=== PATIENT | male | born 1945 | race Caucasian/White ===

== ENCOUNTER 2017-06-20 18:52 | Inpatient (IN) | payer MEDICARE, SELFPAY ==
[2017-06-20] VITALS (7 sets, daily range): BP systolic 122–129; BP diastolic 68–78; PULSE 70–95; RESP 12–22; TEMP 36.4–36.6; O2SAT 95–98; BMI 42.9; BMI 40.3
--- NOTE | 2017-06-20 19:05 | CT_ITS ---
STUDY: CT BRAIN WITHOUT CONTRAST REASON FOR EXAM: Male, 71 years old. Seizure. RADIATION DOSAGE (If Supplied By Facility): CTDIvol = ( 44.99 ) mGy, DLP = ( 779.24 ) mGycm TECHNIQUE: Transaxial CT imaging of the brain was performed without administration of intravenous contrast material. Individualized dose optimization techniques were used for this CT. COMPARISON: None. FINDINGS: Normal soft tissue structures. Normal calvarium. No definite acute abnormality. No acute hemorrhage. Marked encephalomalacia of most of the right frontal and temporal lobes related to previous infarct. Ex vacuo enlargement of the right lateral ventricle. No midline shift. Mild atrophy and White matter disease. CT/Brain/Head without Contrast IMPRESSION: No definite acute abnormality. Large previous right cerebral infarct. Electronically Signed: Isaac Walden MD at 19:54 EDT , Service support ,
--- NOTE | 2017-06-20 19:05 | EKG12_ITS ---
Test Reason : SEIZURE Blood Pressure : / mmHG Vent. Rate : 087 BPM Atrial Rate : 087 BPM P-R Int : 190 ms QRS Dur : 086 ms QT Int : 356 ms P-R-T Axes : 051 023 070 degrees QTc Int : 428 ms Normal sinus rhythm Normal ECG Confirmed by IRMA SUERO, ELLA ([id number]), film or videotape editor JAIMIE ALEXANDER ([id number]) on 06/22/2017 3:05:00 PM Referred By: HENRI Confirmed By:ELLA SOLIS MD
--- NOTE | 2017-06-20 19:08 | RAD_ITS ---
STUDY: X-RAY CHEST REASON FOR EXAM: Male, 71 years old. Seizure TECHNIQUE: Single AP portable view of the chest. COMPARISON: 05/09/2016. FINDINGS: Low lung volumes. Atelectasis or infiltrates in both lung bases. No gross effusions. Normal size heart. Normal mediastinum and barbara. Normal visualized pulmonary arteries. Normal visualized aortic arch and descending thoracic aorta. Normal visualized thoracic spine. There is degenerative osteoarthritis of the bilateral shoulders. There is no demonstrated abnormality of the visualized soft tissue structures of the upper abdomen. RAD/Chest 1 View (Portable) IMPRESSION: Low lung volumes with atelectasis or infiltrates in the lung bases. Electronically Signed: Isaac Walden MD at 19:27 EDT , Service support ,
--- NOTE | 2017-06-20 19:12 | ED.VISSUMM ---
- ER Visit Summary Date of Service: 06/20/17 Chief Complaint: Seizure History of Present Illness: The patient is a 71 M with history of prior stroke just over a year ago presents after seizure. Patient had a large ischemic stroke affecting the left side of his body. He does follow with Dr. Kinney. He has contracture of his left arm, and diminished use of his left leg, and some slurred speech at baseline. 2 weeks ago, he was started on amitriptyline for increased oral secretions. He states he has been in his normal state of health. There is been no other change in medication. Tonight, after he ate, the patient was sitting in his chair. The states that she heard a noise and looked over. He was having rhythmic genic shaking that lasted approximately 30 seconds to a minute. Afterwards he was postictal. It took him about 10 minutes to return to baseline. He did not strike his head. He denies any trauma. He denies any headache, visual change, or other acute symptoms. He states he feels back to baseline. Physical Examination: Vital signs reviewed General: Well-nourished, well-developed Head: Normocephalic, atraumatic Eyes: Pupils equal and reactive, extraocular muscles intact Neck, supple, no lymphadenopathy Heart: Regular rate and rhythm Respiratory: No distress, clear bilaterally Abdomen: Soft, nontender, nondistended, no peritoneal signs Back: Nontender Extremities: Nontender, no edema, no cords Skin: Normal color no rash Neuro: Alert and oriented, weakness of left arm, left leg, mild left-sided facial droop-all chronic Test Results: [] Emergency Department Course and Treatment: The patient was back to baseline on arrival. He had no further seizure activity. I did obtain a head CT which is unchanged. Chest x-ray shows atelectasis versus infiltrate. The patient has had no cough. He said no shortness of breath. I do feel based on his habitus and presentation this is likely atelectasis. Labs are unremarkable. I did discuss the patient with Dr. Sheree Thomason. He agreed with plan for IV Keppra. The patient will be admitted for MRI and EEG tomorrow. Family is comfortable with plan of care. Patient was discussed with the hospitalist. Treatment Plan: [] Disposition: Admission Impression: 1. New onset seizure This note was generated with Dragon dictation software. It may contain incorrect words, spelling, and punctuation that were not noted in review of the chart prior to signing ED Disposition - Plan for ED Patient: Chief Complaint: Seizure Referrals: Eliud Belcher MD [Primary Care Provider] -
[2017-06-20 19:46] LABS: Absolute Lymphocyte Count 1.26 X10^3/ul (0.83-4.51); Absolute Neutrophil Count 5.3 X10^3/uL (2.0-7.7); Basophil# 0.01 X10^3/uL; Basophil% 0.1 % (0-1); Eosinophil# 0.12 X10^3/uL; Eosinophils% 1.7 % (0-5); Hematocrit 41.2 % (40-54); Hemoglobin 13.9 g/dl (13.0-16.5); Lymphocyte # 1.26 X10^3/ul (4.0); Lymphocyte % 17.8 % (19-41); Mean Corp Hgb Conc 33.7 g/gl (32-36); Mean Corpuscular Hgb 29.8 pg (27.0-32.0); Mean Corpuscular Volume 88.4 fL (80-94); Mean Platelet Vol. 9.9 fl (6.2-12.0); Monocyte% 5.6 % (0-10); Neutrophil # 5.27 X10^3/uL (2.7-7.7); Neutrophil % 74.5 % (47-70); Platelet Count 189 K/mm3 (150-450); RBC Distribution Width CV 14.4 % (11.6-14.6); RBC Distribution Width SD 46.6 fl (35.1-43.9); Red Blood Count 4.66 M/mm3 (4.6-6.2); White Blood Count 7.1 K/mm3 (4.4-11.0)
[2017-06-20 19:52] LABS: POSITIVE COUNT NO; POSITIVE DIFFERENTIAL NO; POSITIVE MORPHOLOGY NO
[2017-06-20 19:59] LABS: ALB/GLOB Ratio 0.9 RATIO (0.9-2.4); AST(SGOT) 9 U/L (15-37); Alanine Aminotransfer ALT/SGPT 19 U/L (16-61); Albumin, Serum 3.3 g/dL (3.2-5.0); Alkaline Phosphatase 54 U/L (45-117); Anion Gap 7 (5-15); BUN 22 mg/dL (7-18); BUN/Creat Ratio 17.6 RATIO (10-20); Calcium,Total 8.4 mg/dL (8.5-10.1); Chloride 106 mmol/L (98-107); Creatinine, Serum 1.25 mg/dL (0.70-1.30); EST Glomerular Filtration Rate 60 mL/min (>60); Est Glom Filt Rate - Afr Amer 73 mL/min (>60); Estimated Creatinine Clearance 45.78 ml/min; Globulin 3.5 g/dL (2.2-4.2); Glucose 135 mg/dL (74-106); Potassium 4.2 mmol/L (3.5-5.1); Protein, Total 6.8 g/dL (6.4-8.2); Sodium Level 143 mmol/L (136-145)
--- NOTE | 2017-06-20 20:20 | NURSING ---
[facility] CALLED BACK NEUROLOGY
[2017-06-20 20:26] LABS: Bacteria 0 SEEN /hpf (None Seen); Mucous, Urine 0 SEEN /hpf (<or=2+); Red Blood Cells-Urine 0 SEEN /hpf (0-5); Squamous Epithelial Cells - UA 0 SEEN /hpf (0-5)
[2017-06-20 20:28] LABS: Color, Urine Yellow (Yellow); Glucose, Dipstick Normal (Normal); Ketone-Dipstick Negative (Negative); Leukocyte Esterase-Dipstick Negative /ul (Negative); Nitrite-Dipstick Negative (Negative); Occult Blood-Urine Negative /ul (Negative); Protein-Dipstick Negative (Negative); Urine Bilirubin Dipstick Negative (Negative); Urine Clarity Clear (Clear); Urine Urobilinogen Normal (Normal); Urine pH 6.5 (5.0 - 8.0)
[2017-06-20] MEDS: levETIRAcetam IV 1,000 MG/100 ML BAG 400 MG IV (20:46)
[2017-06-20 20:57] LABS: White Blood Cells 0-5 SEEN /hpf (0-5)
[2017-06-20 21:00] LABS: Amphetamine Urine VISTA NEGATIVE (<1000 ng/mL); Barbiturate Urine VISTA NEGATIVE (< 200 ng/mL); Benzodiazepine Urine VISTA NEGATIVE (< 200 ng/mL); Cocaine Urine VISTA NEGATIVE (< 300 ng/mL); Ecstacy Urine VISTA NEGATIVE (< 500 ng/mL); Methadone Urine VISTA NEGATIVE (< 300 ng/mL); PCP Urine VISTA NEGATIVE (< 25 ng/mL); THC Urine VISTA NEGATIVE (< 50 ng/mL); Vista UDS pH Range 6
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
--- NOTE | 2017-06-20 21:42 | ECHOD_ITS ---
Reason For Study: TIA/CVA Procedure This was a 2D Doppler, Color Flow transthoracic echocardiogram. Exam performed portable in patient room. Left Ventricle Normal LV size. Left ventricular systolic function is normal. The estimated ejection fraction is 65 %. No regional wall motion abnormalities noted. Right Ventricle Normal RV size. Normal systolic function. Atria Normal left atrium. Normal right atrium. Mitral Valve Normal mitral valve. Tricuspid Valve Normal tricuspid valve. Aortic Valve The aortic valve is not well visualized. Pulmonic Valve The pulmonic valve is not well visualized. Great Vessels Normal aortic root. The pulmonary artery is normal size. Normal inferior vena cava. Pericardium/Pleural No pericardial effusion. Medication Performed a rapid injection of agitated mix of 9 cc saline and 1cc air to assess for atrial septal defect. Diluted definity 5ml given slow IV push to enhance endocardial definition. MMode/2D Measurements & Calculations LVIDd: 3.9 cm IVSd: 1.1 cm Ao root diam: 3.5 cm LVIDs: 2.5 cm LVPWd: 1.1 cm LA dimension: 3.9 cm FS: 36.2 % Doppler Measurements & Calculations MV E max jeannine: 66.5 cm/sec Ao V2 max: 144.2 cm/sec LV V1 max: 114.3 cm/sec MV A max jeannine: 80.8 cm/sec Ao max P.3 mmHg LV V1 max P.2 mmHg MV E/A: 0.82 PA V2 max: 108.6 cm/sec Interpretation Summary Normal LV size. Left ventricular systolic function is normal. The estimated ejection fraction is 65 %. Contrast injection was performed. Ordering Physician: Janine Chou Referring Physician: MD Simi Eliud Performed By: Gaby Shin RDCS
[2017-06-20 22:27] LABS: Thyroid Stim Hormone (TSH) 2.79 uIU/mL (0.358-3.74)
[2017-06-20 22:57] LABS: Hemoglobin A1c 5.2 % (4.2-6.3)
[2017-06-20] MEDS: 0.9% Normal Saline 1,000 ML 100 ML IV (23:18)
[2017-06-20] MEDS: APIXABAN 5 MG TABLET PO (23:33)
[2017-06-20] MEDS: Baclofen 10 MG Tablet PO (23:33)
[2017-06-20] MEDS: Tamsulosin HCl 0.4 MG Capsule PO (23:33)
[2017-06-20] MEDS: Atorvastatin Calcium 80 MG Tablet PO (23:34)
[2017-06-20] MEDS: Famotidine 20 MG Tablet PO (23:34)
[2017-06-21] VITALS (16 sets, daily range): BP systolic 112–153; BP diastolic 69–87; PULSE 59–86; RESP 12–19; TEMP 36.6–37; O2SAT 93–98
[2017-06-21 02:55] LABS: Cholesterol 76 mg/dL (200); High Density Lipoprotein 32 mg/dL; Triglycerides 50 mg/dL; Very Low Density Lipoprotein 10 mg/dL (5-40)
[2017-06-21] MEDS: Baclofen 10 MG Tablet PO ×3 (05:11→21:48)
[2017-06-21] MEDS: 0.9% Normal Saline 1,000 ML 100 ML IV ×2 (05:12→18:33)
--- NOTE | 2017-06-21 07:52 | MRI_ITS ---
STUDY: MRI BRAIN WITHOUT CONTRAST REASON FOR EXAM: Male, 71 years old. cva, new seizure; hx prior cva with resid lt side weakness. TECHNIQUE: Standardized multiplanar fat and water weighted pulse sequences were obtained. COMPARISON: CT of the head dated June 20, 2017 FINDINGS: Again noted is the large right temporofrontal encephalomalacia and gliosis with mild ex vacuo dilatation of the lateral ventricle. There is atrophy of the right cerebral peduncle. There is no extra-axial fluid accumulation. Normal flow voids within the major intracranial circulation suggesting patency by spin echo criteria. Normal sella turcica, pituitary gland, infundibular stalk, optic chiasm and hypothalamus. Normal tectal plate and pineal gland. Normal cerebellum. Normal basal cisterns. Normal bilateral temporal bones. Normal bilateral internal auditory canals. There is moderate paranasal sinus disease. MRI/Brain without Contrast IMPRESSION: No acute intracranial abnormality. Large right MCA infarction. Electronically Signed: Dale Martin MD at 10:01 EDT Tel , Service support ,
--- NOTE | 2017-06-21 07:53 | MRI_ITS ---
STUDY: MRA OF THE HEAD WITHOUT CONTRAST REASON FOR EXAM: Male, 71 years old. cva,new seizure; hx prior cva with resid lt side weakness. TECHNIQUE: 3-D dset-sc-yuewia (TOF) imaging was performed with MIPs. The study was performed unenhanced. COMPARISON: None. FINDINGS: There is occlusion of the right internal carotid artery to the level of the terminus. There is nonvisualization of the right A1 and A2 segments of the anterior cerebral artery. Normal left A2 segments of the anterior cerebral arteries. There is nonvisualization of the right M1 and M2 segments of the middle cerebral arteries, with a normal M1 bifurcation. Normal left M1 and M2 segments of the middle cerebral arteries, with a normal M1 bifurcation. There is non-visualization of the right posterior communicating artery (PCOM). Normal left posterior communicating artery (PCOM). Normal bilateral vertebral arteries. Normal basilar artery with a normal basilar bifurcation. The visualized bilateral superior cerebellar (SCA) arteries are normal. Normal bilateral P1, P2 and visualized P3 segments of the posterior cerebral arteries. There is no demonstrated aneurysm of the [place] of [place]. There is no major vessel occlusion or hemodynamically significant stenosis. There is no demonstrated abnormality of the visualized brain. 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 Electronically Signed: Dale Martin MD at 10:05 EDT Tel , Service support ,
--- NOTE | 2017-06-21 07:53 | MRI_ITS ---
STUDY: MRA NECK WITHOUT CONTRAST REASON FOR EXAM: Male, 71 years old. cva,new seizure; hx prior cva with resid lt side weakness. TECHNIQUE: Source images were obtained, MIPs were performed. The study was performed unenhanced. COMPARISON: None. FINDINGS: RIGHT CAROTID ARTERIES: Normal right common carotid artery (CCA). There is complete occlusion of the origin of the right internal carotid artery without demonstrated arterial flow. LEFT CAROTID ARTERIES: Normal left common carotid artery (CCA). There is complete occlusion of the origin of the left internal carotid artery without demonstrated arterial flow. Normal origin of the left external carotid artery (ECA). VERTEBRAL ARTERIES: There is antegrade flow within the bilateral vertebral arteries with a small left vertebral artery, and a dominant right vertebral artery. MRI/MRA Neck without Contrast IMPRESSION: Occlusion of the bilateral ICAs. Further evaluation with CTA can be obtained. Electronically Signed: Dale Martin MD at 10:15 EDT Tel , Service support ,
[2017-06-21] MEDS: Calcium Carb/Vitamin D 1 TABLET Tablet PO ×2 (09:52→17:19)
[2017-06-21] MEDS: Aspirin 81 MG TAB.CHEW PO (09:52)
[2017-06-21] MEDS: levETIRAcetam 750 MG Tablet PO ×2 (09:52→21:46)
[2017-06-21] MEDS: Lisinopril 10 MG Tablet PO (09:52)
[2017-06-21] MEDS: Famotidine 20 MG Tablet PO ×2 (09:52→21:46)
[2017-06-21] MEDS: APIXABAN 5 MG TABLET PO ×2 (09:52→21:46)
[2017-06-21 10:20] LABS: Anion Gap 8 (5-15); BUN 19 mg/dL (7-18); BUN/Creat Ratio 19.3 RATIO (10-20); Calcium,Total 7.5 mg/dL (8.5-10.1); Chloride 111 mmol/L (98-107); Creatinine, Serum 0.98 mg/dL (0.70-1.30); EST Glomerular Filtration Rate 79 mL/min (>60); Est Glom Filt Rate - Afr Amer 96 mL/min (>60); Glucose 102 mg/dL (74-106); Potassium 4.1 mmol/L (3.5-5.1); Sodium Level 143 mmol/L (136-145)
--- NOTE | 2017-06-21 13:49 | CT_ITS ---
STUDY: CTA OF THE BRAIN REASON FOR EXAM: Male, 71 years old. CVA FOLLOW UP TO MRI'S FROM TODAY RADIATION DOSAGE (If Supplied By Facility): CTDIvol = ( 30.08 ) mGy, DLP = ( 1545.59 ) mGycm TECHNIQUE: CT angiography was performed with a multi-detector CT scanner. Data acquisition was obtained from the skull base through the vertex following intravenous administration of 100 ml of [id number]-370. MIP images were reconstructed from the axial data set. Post-processing of the angiographic images was performed, with multiplanar reformation and 3D reconstruction. Individualized dose optimization techniques were used for this CT. COMPARISON: MRA Brain Jun 21 2017 8:35am and CT Brain Jun 20 2017 7:26pm FINDINGS: Normal bilateral petrous carotid arteries. There is calcified plaque formation of the right cavernous carotid artery, without a cross-sectional luminal stenosis. There is calcified plaque formation of the left cavernous carotid artery, without a cross-sectional luminal stenosis. There is chronic appearing occlusion of the right and left ICA. There is either a branch of the proximal right and left ICA vs recanalization of the original vessel as it enters into the skull base. This extends to the cavernous carotid arteries. Normal right A1 segments of the anterior cerebral artery. Normal left A1 segments of the anterior cerebral artery. Normal intact anterior communicating artery (ACOM). There is a narrow right A2 segment. Normal right M1 segments of the middle cerebral arteries, with a normal M1 bifurcation. Normal left M1 and M2 segments of the middle cerebral arteries, with a normal M1 bifurcation. Occlusion of the right M2 segment. This is chronic. Normal right posterior communicating artery (PCOM). Normal left posterior communicating artery (PCOM). Normal bilateral vertebral arteries. Normal basilar artery with a normal basilar bifurcation. The visualized bilateral superior cerebellar (SCA) arteries are normal. Normal bilateral P1, P2 and visualized P3 segments of the posterior cerebral arteries. There is no demonstrated aneurysm of the [place] of [place]. There is mild maxillary sinus disease. There is mild ethmoid sinus disease. Old right MCA infarct. Encephalomalacia of the right MCA distribution. 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 Diffuse chronic appearing narrowing of the right A2 segment. There is chronic appearing occlusion of the right and left ICA. There is either a branch of the proximal right and left ICA vs recanalization of the original vessel. This extends to the cavernous carotid arteries. Electronically Signed: Amilcar Calle MD at 15:59 EDT , Service support ,
--- NOTE | 2017-06-21 13:49 | CT_ITS ---
STUDY: CTA OF THE BRAIN REASON FOR EXAM: Male, 71 years old. CVA FOLLOW UP TO MRI'S FROM TODAY RADIATION DOSAGE (If Supplied By Facility): CTDIvol = ( 30.08 ) mGy, DLP = ( 1545.59 ) mGycm TECHNIQUE: CT angiography was performed with a multi-detector CT scanner. Data acquisition was obtained from the skull base through the vertex following intravenous administration of 100 ml of Isovue-370. MIP images were reconstructed from the axial data set. Post-processing of the angiographic images was performed, with multiplanar reformation and 3D reconstruction. Individualized dose optimization techniques were used for this CT. COMPARISON: MRA Brain Jun 21 2017 8:35am and CT Brain Jun 20 2017 7:26pm FINDINGS: Normal bilateral petrous carotid arteries. There is calcified plaque formation of the right cavernous carotid artery, without a cross-sectional luminal stenosis. There is calcified plaque formation of the left cavernous carotid artery, without a cross-sectional luminal stenosis. There is chronic appearing occlusion of the right and left ICA. There is either a branch of the proximal right and left ICA vs recanalization of the original vessel as it enters into the skull base. This extends to the cavernous carotid arteries. Normal right A1 segments of the anterior cerebral artery. Normal left A1 segments of the anterior cerebral artery. Normal intact anterior communicating artery (ACOM). There is a narrow right A2 segment. Normal right M1 segments of the middle cerebral arteries, with a normal M1 bifurcation. Normal left M1 and M2 segments of the middle cerebral arteries, with a normal M1 bifurcation. Occlusion of the right M2 segment. This is chronic. Normal right posterior communicating artery (PCOM). Normal left posterior communicating artery (PCOM). Normal bilateral vertebral arteries. Normal basilar artery with a normal basilar bifurcation. The visualized bilateral superior cerebellar (SCA) arteries are normal. Normal bilateral P1, P2 and visualized P3 segments of the posterior cerebral arteries. There is no demonstrated aneurysm of the [place]. There is mild maxillary sinus disease. There is mild ethmoid sinus disease. Old right MCA infarct. Encephalomalacia of the right MCA distribution. CT/CTA Neck W/WO Contrast IMPRESSION: Occlusion of the right M2 segment. This is chronic. Diffuse chronic appearing narrowing of the right A2 segment. There is chronic appearing occlusion of the right and left ICA. There is either a branch of the proximal right and left ICA vs recanalization of the original vessel. This extends to the cavernous carotid arteries. Electronically Signed: Amilcar Calle MD at 15:59 EDT , Service support ,
--- NOTE | 2017-06-21 13:56 | PCM.PROGNOTE ---
Patient Problems: Active and Suspected Problems Seizure (Acute) Elevated serum creatinine (Acute) Hyperglycemia (Acute) Subjective: Pt resting comfortably in bed NAD. He does have a tremor in his left hand and leg but he states this is chronic from his prior stroke. Same for severe weakness in his left arm and leg. He also has drooling left side of mouth. No headache, dizziness, diplopia, blurred vision, SOB, CP. - Physical Exam General: Alert, Oriented x3, Cooperative, - HEENT: Atraumatic, PERRLA, EOMI, Normocephalic, - - drooling left side of mouth. Neck: Supple, No JVD, Negative Carotid Bruits Lungs: Clear to auscultation, Normal air movement Cardiovascular: Regular rate, No murmurs Abdomen: Bowel Sounds Present, Soft, Non Tender Extremities: No edema, Capillary Refill Less than 3 Seconds Skin: No rashes, No breakdown Musculoskeletal: No Tenderness to Palpation of Joints or Extremities Neurological: Cranial nerves II-XII grossly intact, - - severe left arm, hand, leg, foot weakness. Psych/Mental Status: Normal Affect, Appropriate Vital Signs Temp Pulse Resp BP Pulse Ox 97.8 F 68 16 121/70 H 97 06/21/17 09:45 06/21/17 11:01 06/21/17 09:45 06/21/17 09:45 06/21/17 09:45 Oxygen Delivery Method Room Air Weight: 109.9 kg Body Mass Index (BMI) 40.3 Intake and Output for Last 24 Hours 06/19/17 06/20/17 06/21/17 23:59 23:59 23:59 Intake Total 591 / 591 1173 / 1173 Output Total 175 / 175 725 / 725 Balance 416 / 416 448 / 448 Laboratory Tests Past 24 Hrs 06/20/17 06/20/17 06/21/17 22:07 22:07 01:56 Sodium Potassium Chloride Carbon Dioxide Anion Gap BUN Creatinine Estim Creat Clear Calc Est GFR (MDRD) Af Amer Est GFR (MDRD) Non-Af BUN/Creatinine Ratio Glucose Hemoglobin A1c 5.2 Calcium Troponin I < 0.02 Triglycerides 50 Cholesterol 76 LDL Cholesterol 34 VLDL Cholesterol 10 HDL Cholesterol 32 L 06/21/17 06/21/17 06/21/17 01:56 05:18 05:18 Sodium 143 Potassium 4.1 Chloride 111 H Carbon Dioxide 24.0 Anion Gap 8 BUN 19 H Creatinine 0.98 Estim Creat Clear Calc 58.40 Est GFR (MDRD) Af Amer 96 Est GFR (MDRD) Non-Af 79 BUN/Creatinine Ratio 19.3 Glucose 102 Hemoglobin A1c Calcium 7.5 L Troponin I < 0.02 < 0.02 Triglycerides Cholesterol LDL Cholesterol VLDL Cholesterol HDL Cholesterol 06/21/17 11:50 Sodium Potassium Chloride Carbon Dioxide Anion Gap BUN Creatinine Estim Creat Clear Calc Est GFR (MDRD) Af Amer Est GFR (MDRD) Non-Af BUN/Creatinine Ratio Glucose Hemoglobin A1c Calcium Troponin I < 0.02 Triglycerides Cholesterol LDL Cholesterol VLDL Cholesterol HDL Cholesterol Medical Necessity - Tobacco Use Smoking Status: Former smoker Tobacco Use: Non-smoker - quit in 2006 and prior to that had a 20 Pack yr hx Assessment/Plan Active and Suspected Problems Seizure (Acute) Elevated serum creatinine (Acute) Hyperglycemia (Acute) 1. New onset tonic clonic seizure - on keppra now. No further seizure activity. Neuro consult. Severe vascular changes noted on MRA, will obtain CTA head and neck per neuro rec. Echo and EEG pending. CT brain shows large previous right cerebral infarct. TSH normal. UA neg. 2. Prior CVA - left sided deficits. PTOT, ST. On eliquis, asa, statin. 3. Morbid obesity - dietary consult. Pal controlled diet. A1C 5.2. 4. HLD - LDL 34 5. Hx DVT RLE - eliquis. 6. HTN - stable DVT ppx: eliquis DC planning: PTOT This patient was seen by Reynold Browne PA-C under the supervision of Doctor Giorgio.
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
[2017-06-21] MEDS: Tamsulosin HCl 0.4 MG Capsule PO (21:46)
[2017-06-21] MEDS: Atorvastatin Calcium 80 MG Tablet PO (21:48)
[2017-06-22] VITALS (7 sets, daily range): BP systolic 114–127; BP diastolic 72–79; PULSE 61–71; RESP 12–16; TEMP 36.4–36.6; O2SAT 95–98
[2017-06-22] MEDS: 0.9% Normal Saline 1,000 ML 100 ML IV (03:44)
[2017-06-22] MEDS: Baclofen 10 MG Tablet PO (05:25)
[2017-06-22 05:43] LABS: Anion Gap 6 (5-15); BUN 14 mg/dL (7-18); BUN/Creat Ratio 16.6 RATIO (10-20); Chloride 107 mmol/L (98-107); Creatinine, Serum 0.84 mg/dL (0.70-1.30); EST Glomerular Filtration Rate 95 mL/min (>60); Est Glom Filt Rate - Afr Amer 114 mL/min (>60); Estimated Creatinine Clearance 68.13 ml/min; Glucose 102 mg/dL (74-106); Potassium 4.1 mmol/L (3.5-5.1); Sodium Level 140 mmol/L (136-145)
[2017-06-22] MEDS: Calcium Carb/Vitamin D 1 TABLET Tablet PO (07:41)
[2017-06-22] MEDS: Aspirin 81 MG TAB.CHEW PO (07:41)
--- NOTE | 2017-06-22 08:55 | CASEMGMT ---
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 Per last night (06/20/17) after dinner, she heard a noise, she saw him having GTCs lasting few minutes, had tongue bite, urinary incontinence, with post ictal state lasting for about 15-20 minutes. Patient felt he knew something was happening but could not control it, was not fully aware of the situation. Was loaded with Keppra 1 g in the ED and started on Keppra [address] head showed old right MCA stroke, MRI brain showed old right MCA stroke, MRA head/neck reported to show chronic right ICA and MCA occlusion. Per PT/OT and physician documentation, patient resides with in a 1 story home with ramp entrance. Use of quad cane and rollator for ambulation. Patient wears L AFO for all ambulation tasks. Patients assists him with walking, transfers, mobility and all ADLs. Sleeps in a bed. does all IADLs and driving. Has a walk-in shower with a seat and grab bar. Patient and spouse's goal is for patient to return home. Therapy is recommending home, but would benefit from further skilled therapy. Transition Planning/Care Coordination: Patient is established with Dr. Belcher for primary care and follows with [facility] s/p CVA. The patient is demonstrating a functional decline from baseline requiring max assist with dressing and ambulating. The patient and family goal is to transition back to home when patient is medically cleared for discharge from the hospital. RN CM will meet with patient and to discuss transition planning and options for therapy, including SNF, home with home health therapy, and outpatient therapy. Given the patient's debility, SNF or HHC would be most appropriate. The patient will follow-up with [facility] in 4 weeks per neurology recommendations. Disposition Plan: TBD
--- NOTE | 2017-06-22 09:11 | CASEMGMT ---
SANDRA QUISPE met with patient, not present, and discussed briefly HHC for PT/OT. Patient states I don't think my insurance will pay for it. SANDRA QUISPE explained the precert process for HHC, and patient stated ok, come back when my is here. SANDRA QUISPE will stop back when patient's spouse is present. NADIRA Hale, RN-BC, [facility]
[2017-06-22] MEDS: Famotidine 20 MG Tablet PO (09:30)
[2017-06-22] MEDS: APIXABAN 5 MG TABLET PO (09:30)
[2017-06-22] MEDS: levETIRAcetam 750 MG Tablet PO (09:30)
[2017-06-22] MEDS: Lisinopril 10 MG Tablet PO (09:30)
--- NOTE | 2017-06-22 10:44 | EEG ---
- Electroencephalogram Date of service: 06/22/17 History EEG is being done in this 71 yr M to rule out seizures EEG Description: This is an 18 channel EEG with 10-20 lead placement system. Bipolar montages, Referential and Circumferential montages were reviewed. Photic stimulation and Hyperventilation were performed. The posterior dominant background rhythm is 7 HZ synchronous, symmetric, reacting to eye opening and closing. Photo stimulation elicited normal driving response but no abnormal photoparoxysmal response, Hyperventilation did not elicit any abnormal photoparoxysmal response. Sleep was identified. There was generalized back ground slowing in the theta frequency range of 7 Hz. There was also focal slowing in the lower theta and delta frequency range in the right cerebral hemisphere. Fp1-FP2 artefact noted during the record. There was no epileptiform discharges or electrographic seizures noted during this recording. EEG Interpretation This is an abnormal EEG due to the presence of mild generalized slowing along with focal slowing in the right cerebral hemisphere. The generalized slowing can be seen in generalized cerebral dysfunction like encephalopathy while focal slowing can be suggestive of structural lesion on the right and workup like MRI brain to rule out the same should be undertaken. Clinical correlation is advised. There is no epileptiform discharges or electrographic seizures noted during the record.
--- NOTE | 2017-06-22 11:09 | DCINST_ITS ---
- Discharge Diagnoses Current Active Problems: Current Active and Chronic Problems Seizure (Acute) Elevated serum creatinine (Acute) BPH (benign prostatic hyperplasia) (Chronic) Hyperglycemia (Acute) Chronic anticoagulation (Chronic) on Eliquis. This was started for a DVT in the E in Apr. You will use the following diet at home:: Cardiac Discharge Activity: May Not Drive Call your doctor if you observe: Shortness of breath, Dizziness, Fainting spells , Chest pain, Increased palpitations (irregular heartbeat) Allergies/Adverse Reactions: Allergies No Known Allergies Allergy (Verified 01/16/17 11:06) Medications to take at Discharge Acetaminophen [Tylenol Tablet] 650 mg PO Q6H PRN PRN #0 tablet 05/19/16 Apixaban [Eliquis] 5 mg PO BID tablet 05/19/16 Atorvastatin Calcium [Lipitor] 80 mg PO QHS tablet 05/19/16 Bisacodyl [Dulcolax] 10 mg RECTAL .PRN X 1 PRN #0 suppos. 05/19/16 Calcium Carb/Vitamin D [Os-Pal 500MG + D] 1 tablet PO BIDCM tablet 05/19/16 Loperamide [Imodium] 2 mg PO Q6H PRN PRN #0 capsule 05/19/16 Loratadine [Claritin] 10 mg PO DAILY tablet 05/19/16 Mag Hydrox/Al Hydrox/Simeth [Mylanta II] 15 ml PO Q6H PRN PRN #0 udc 05/19/16 Lisinopril [Prinivil] 10 mg PO DAILY 01/16/17 Potassium Chloride [K-Dur] 10 meq PO DAILYCM 01/16/17 Baclofen 10 mg PO TID 06/20/17 Nortriptyline HCl 20 mg PO QHS 06/20/17 Tamsulosin HCl [Flomax] 0.4 mg PO DAILY 06/20/17 levETIRAcetam tablet [Keppra tablet] 750 mg PO BID #60 tab 06/22/17 The following prescriptions were given: levETIRAcetam tablet [Keppra tablet] 750 mg PO BID #60 tab Primary Care Physician: Eliud Belcher MD [Primary Care Provider] - Please follow up with your Primary Care Physician in: 1 Week Please Follow Up With: Dr. Kinney When: 3 Weeks Proposed Discharge Date: 06/22/17
--- NOTE | 2017-06-22 11:15 | PCM.DC.SUM ---
Discharge Date and Diagnosis Date of Admission: 06/20/17 Date of Discharge: 06/22/17 - Primary Discharge Diagnosis Active and Suspected Problems 1. New onset tonic-clonic seizure 2. History of CVA 3. Morbid obesity 4. Hyperlipidemia 5. Hypertension 6. History of right lower extremity DVT - Secondary Discharge Diagnosis Chronic Problems BPH (benign prostatic hyperplasia) (Chronic) Chronic anticoagulation (Chronic) on Eliquis. This was started for a DVT in the RLE in Apr. 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 Large previous right cerebral infarct. Electronically Signed: Isaac Walden MD at 19:54 EDT , Service support , Chest X-Ray 06/20/17 19:08 IMPRESSION: Low lung volumes with atelectasis or infiltrates in the lung bases. Electronically Signed: Isaac Walden MD at 19:27 EDT , Service support , Brain MRI 06/21/17 07:52 IMPRESSION: No acute intracranial abnormality. Large right MCA infarction. Electronically Signed: Dale Martin MD at 10:01 EDT Tel , Service support , Head MRA 06/21/17 07:53 IMPRESSION: Occlusion of the right ICA and MCA. Electronically Signed: Dale Martin MD at 10:05 EDT Tel , Service support , Neck MRA 06/21/17 07:53 IMPRESSION: Occlusion of the bilateral ICAs. Further evaluation with CTA can be obtained. Electronically Signed: Dale Martin MD at 10:15 EDT Tel , Service support , Head CTA 06/21/17 13:49 IMPRESSION: Occlusion of the right M2 segment. This is chronic. Diffuse chronic appearing narrowing of the right A2 segment. There is chronic appearing occlusion of the right and left ICA. There is either a branch of the proximal right and left ICA vs recanalization of the original vessel. This extends to the cavernous carotid arteries. Electronically Signed: Amilcar Calle MD at 15:59 EDT , Service support , Neck CTA 06/21/17 13:49 IMPRESSION: Occlusion of the right M2 segment. This is chronic. Diffuse chronic appearing narrowing of the right A2 segment. There is chronic appearing occlusion of the right and left ICA. There is either a branch of the proximal right and left ICA vs recanalization of the original vessel. This extends to the cavernous carotid arteries. Electronically Signed: Amilcar Calle MD at 15:59 EDT , Service support , Dr. Marina- Neurology Operations: None Procedures: 2-D Echocardiogram, Electroencephalogram Summary of Care Provided: The patient is a 71 year old M admitted 06/20/2017 due to tonic-clonic seizure. Seizure was witnessed by patient's who states patient was incontinent of urine and bit his tongue. Postictal for approximately 10 minutes. No prior history of seizure. Patient follows with Dr. Kinney due to prior history of CVA. CT of head showed old right MCA stroke. MRI of brain showed old right MCA stroke, MRA of head and neck showed chronic bilateral occlusion ICAs and MCA occlusion. Echocardiogram showed EF 65%. EEG was abnormal due to the presence of mild generalized slowing along with focal slowing in the right cerebral hemisphere. No epileptiform discharges or electrographic seizures noted during the record. Patient was started on Keppra 750 mg twice daily. He will continue outpatient follow-up with Dr. Kinney in 3 weeks. No further seizure activity during admission. Patient has severe left lower extremity and left upper extremity weakness from previous CVA. He lives at home with and they deny home-going needs. His other past medical history includes morbid obesity, hyperlipidemia, history of right lower extremity DVT on chronic anticoagulation with Eliquis, hypertension, BPH. Other chronic medical conditions are stable at this time. Patient has gained approximately 37 pounds in the past year. Encouraged calorie controlled diet and lifestyle modifications at discharge. General: Alert, Oriented x3, Cooperative, No apparent distress HEENT: Atraumatic, PERRLA, EOMI, Normocephalic Oral: Moist Mucosa Neck: Supple, Negative Carotid Bruits Lungs: Clear to auscultation, Diminished Cardiovascular: Regular rate, Regular Rhythm, Normal S1, Normal S2, No murmurs Abdomen: Bowel Sounds Present, Soft, Non Tender, Non-Distended, Obese Extremities: No clubbing, No cyanosis, Non-pitting edema BLLE Skin: No rashes, No breakdown Musculoskeletal: No tenderness to palpation of joints or extremities Neurological: Facial Droop, left. Severe left upper extremity, left lower extremity weakness. Psych/Mental Status: Normal affect, appropriate. Patient seen and examined prior to discharge. Physical assessment as noted above. Patient is stable for discharge home with the recommendations as noted above. This patient was seen by AVA Menendez under the supervision of Dr. Alvares. Discharge Diet: Low fat/ Low Cholesterol, 1800 Calorie Control Diet Discharge Activity: May Not Drive Call your doctor if you observe: Shortness of breath, Dizziness, Fainting spells, Chest pain, Increased palpitations (irregular heartbeat) Home Medications: Medications to take at Discharge Acetaminophen [Tylenol Tablet] 650 mg PO Q6H PRN PRN #0 tablet 05/19/16 Apixaban [Eliquis] 5 mg PO BID tablet 05/19/16 Atorvastatin Calcium [Lipitor] 80 mg PO QHS tablet 05/19/16 Bisacodyl [Dulcolax] 10 mg RECTAL .PRN X 1 PRN #0 suppos. 05/19/16 Calcium Carb/Vitamin D [Os-Pal 500MG + D] 1 tablet PO BIDCM tablet 05/19/16 Loperamide [Imodium] 2 mg PO Q6H PRN PRN #0 capsule 05/19/16 Loratadine [Claritin] 10 mg PO DAILY tablet 05/19/16 Mag Hydrox/Al Hydrox/Simeth [Mylanta II] 15 ml PO Q6H PRN PRN #0 udc 05/19/16 Lisinopril [Prinivil] 10 mg PO DAILY 01/16/17 Potassium Chloride [K-Dur] 10 meq PO DAILYCM 01/16/17 Baclofen 10 mg PO TID 06/20/17 Nortriptyline HCl 20 mg PO QHS 06/20/17 Tamsulosin HCl [Flomax] 0.4 mg PO DAILY 06/20/17 levETIRAcetam tablet [Keppra tablet] 750 mg PO BID #60 tab 06/22/17 Following Prescrptions Were Given to Patient: levETIRAcetam tablet [Keppra tablet] 750 mg PO BID #60 tab Primary Care Physician: Eliud Belcher MD [Primary Care Provider] - Please follow up with your Primary Care Physician in: 1 Week Please Follow Up With: Dr. Kinney When: 3 Weeks Disposition: Home Minutes spent on discharge:: 35 Patient Condition:: Stable Medical Necessity - Tobacco Use Smoking Status: Former smoker Tobacco Use: Non-smoker - quit in 2006 and prior to that had a 20 Pack yr hx Meaningful Use Info Meaningful Use Diagnoses (Choose all that apply): None applicable
--- NOTE | 2017-06-22 11:27 | CASEMGMT ---
SANDRA QUISPE met with patient and spouse to further discuss need for continued therapy. Patient's spouse, Mrs. Campbell, states patient just finished outpatient therapy at end of April and Dr. Belcher has been following for therapy needs. They had discussed with Dr. Belcher that patient could take a break from therapy for a few months and maybe start back up around July. At this time, both are declining [facility] services or outpatient therapy set-up. Disposition Plan: Home with support of spouse with follow-up plans in place. JOHNNY HaleN, RN-BC, CCM
--- NOTE | 2017-06-22 11:35 | DS.PCM_ITS ---
Discharge Date and Diagnosis Date of Admission: 06/20/17 Date of Discharge: 06/22/17 - Primary Discharge Diagnosis Active and Suspected Problems 1. New onset tonic-clonic seizure 2. History of CVA 3. Morbid obesity 4. Hyperlipidemia 5. Hypertension 6. History of right lower extremity DVT - Secondary Discharge Diagnosis Chronic Problems BPH (benign prostatic hyperplasia) (Chronic) Chronic anticoagulation (Chronic) on Eliquis. This was started for a DVT in the RLE in Apr. 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 Large previous right cerebral infarct. Electronically Signed: Isaac Walden MD at 19:54 EDT , Service support , Chest X-Ray 06/20/17 19:08 IMPRESSION: Low lung volumes with atelectasis or infiltrates in the lung bases. Electronically Signed: Isaac Walden MD at 19:27 EDT , Service support , Brain MRI 06/21/17 07:52 IMPRESSION: No acute intracranial abnormality. Large right MCA infarction. Electronically Signed: Dale Martin MD at 10:01 EDT Tel , Service support , Head MRA 06/21/17 07:53 IMPRESSION: Occlusion of the right ICA and MCA. Electronically Signed: Dale Martin MD at 10:05 EDT Tel , Service support , Neck MRA 06/21/17 07:53 IMPRESSION: Occlusion of the bilateral ICAs. Further evaluation with CTA can be obtained. Electronically Signed: Dale Martin MD at 10:15 EDT Tel , Service support , Head CTA 06/21/17 13:49 IMPRESSION: Occlusion of the right M2 segment. This is chronic. Diffuse chronic appearing narrowing of the right A2 segment. There is chronic appearing occlusion of the right and left ICA. There is either a branch of the proximal right and left ICA vs recanalization of the original vessel. This extends to the cavernous carotid arteries. Electronically Signed: Amilcar Calle MD at 15:59 EDT , Service support , Neck CTA 06/21/17 13:49 IMPRESSION: Occlusion of the right M2 segment. This is chronic. Diffuse chronic appearing narrowing of the right A2 segment. There is chronic appearing occlusion of the right and left ICA. There is either a branch of the proximal right and left ICA vs recanalization of the original vessel. This extends to the cavernous carotid arteries. Electronically Signed: Amilcar Calle MD at 15:59 EDT , Service support , Dr. Marina- Neurology Operations: None Procedures: 2-D Echocardiogram, Electroencephalogram Summary of Care Provided: The patient is a 71 year old M admitted 06/20/2017 due to tonic-clonic seizure. Seizure was witnessed by patient's who states patient was incontinent of urine and bit his tongue. Postictal for approximately 10 minutes. No prior history of seizure. Patient follows with Dr. Kinney due to prior history of CVA. CT of head showed old right MCA stroke. MRI of brain showed old right MCA stroke, MRA of head and neck showed chronic bilateral occlusion ICAs and MCA occlusion. Echocardiogram showed EF 65%. EEG was abnormal due to the presence of mild generalized slowing along with focal slowing in the right cerebral hemisphere. No epileptiform discharges or electrographic seizures noted during the record. Patient was started on Keppra 750 mg twice daily. He will continue outpatient follow-up with Dr. Kinney in 3 weeks. No further seizure activity during admission. Patient has severe left lower extremity and left upper extremity weakness from previous CVA. He lives at home with and they deny home-going needs. His other past medical history includes morbid obesity, hyperlipidemia, history of right lower extremity DVT on chronic anticoagulation with Eliquis, hypertension, BPH. Other chronic medical conditions are stable at this time. Patient has gained approximately 37 pounds in the past year. Encouraged calorie controlled diet and lifestyle modifications at discharge. General: Alert, Oriented x3, Cooperative, No apparent distress HEENT: Atraumatic, PERRLA, EOMI, Normocephalic Oral: Moist Mucosa Neck: Supple, Negative Carotid Bruits Lungs: Clear to auscultation, Diminished Cardiovascular: Regular rate, Regular Rhythm, Normal S1, Normal S2, No murmurs Abdomen: Bowel Sounds Present, Soft, Non Tender, Non-Distended, Obese Extremities: No clubbing, No cyanosis, Non-pitting edema BLLE Skin: No rashes, No breakdown Musculoskeletal: No tenderness to palpation of joints or extremities Neurological: Facial Droop, left. Severe left upper extremity, left lower extremity weakness. Psych/Mental Status: Normal affect, appropriate. Patient seen and examined prior to discharge. Physical assessment as noted above. Patient is stable for discharge home with the recommendations as noted above. This patient was seen by AVA Menendez under the supervision of Dr. Alvares. Discharge Diet: Low fat/ Low Cholesterol, 1800 Calorie Control Diet Discharge Activity: May Not Drive Call your doctor if you observe: Shortness of breath, Dizziness, Fainting spells , Chest pain, Increased palpitations (irregular heartbeat) Home Medications: Medications to take at Discharge Acetaminophen [Tylenol Tablet] 650 mg PO Q6H PRN PRN #0 tablet 05/19/16 Apixaban [Eliquis] 5 mg PO BID tablet 05/19/16 Atorvastatin Calcium [Lipitor] 80 mg PO QHS tablet 05/19/16 Bisacodyl [Dulcolax] 10 mg RECTAL .PRN X 1 PRN #0 suppos. 05/19/16 Calcium Carb/Vitamin D [Os-Pal 500MG + D] 1 tablet PO BIDCM tablet 05/19/16 Loperamide [Imodium] 2 mg PO Q6H PRN PRN #0 capsule 05/19/16 Loratadine [Claritin] 10 mg PO DAILY tablet 05/19/16 Mag Hydrox/Al Hydrox/Simeth [Mylanta II] 15 ml PO Q6H PRN PRN #0 udc 05/19/16 Lisinopril [Prinivil] 10 mg PO DAILY 01/16/17 Potassium Chloride [K-Dur] 10 meq PO DAILYCM 01/16/17 Baclofen 10 mg PO TID 06/20/17 Nortriptyline HCl 20 mg PO QHS 06/20/17 Tamsulosin HCl [Flomax] 0.4 mg PO DAILY 06/20/17 levETIRAcetam tablet [Keppra tablet] 750 mg PO BID #60 tab 06/22/17 Following Prescrptions Were Given to Patient: levETIRAcetam tablet [Keppra tablet] 750 mg PO BID #60 tab Primary Care Physician: Eliud Belcher MD [Primary Care Provider] - Please follow up with your Primary Care Physician in: 1 Week Please Follow Up With: Dr. Kinney When: 3 Weeks Disposition: Home Minutes spent on discharge:: 35 Patient Condition:: Stable Medical Necessity - Tobacco Use Smoking Status: Former smoker Tobacco Use: Non-smoker - quit in 2006 and prior to that had a 20 Pack yr hx Meaningful Use Info Meaningful Use Diagnoses (Choose all that apply): None applicable
== END 2017-06-22 12:59 | disposition home or self-care (01) | DRG 101 ==
LOC: ED 20:04 → PCU 21:07
PROVIDERS: Physician Assistant; Admitting Provider Internal Medicine; Emergency Provider Emergency Medicine; Family Provider Family Medicine; PCP Family Medicine; Visit Provider Internal Medicine
DX: G40.409 Other generalized epilepsy and epileptic syndromes, not intractable, without status epilepticus (principal); N17.9 Acute kidney failure, unspecified; I69.354 Hemiplegia and hemiparesis following cerebral infarction affecting left non-dominant side; E66.01 Morbid (severe) obesity due to excess calories; I69.391 Dysphagia following cerebral infarction; R13.10 Dysphagia, unspecified; Z68.41 Body mass index [BMI] 40.0-44.9, adult; R73.9 Hyperglycemia, unspecified; E78.5 Hyperlipidemia, unspecified; Z79.899 Other long term (current) drug therapy; F32.9 Major depressive disorder, single episode, unspecified; Z87.891 Personal history of nicotine dependence; I69.392 Facial weakness following cerebral infarction; N40.1 Benign prostatic hyperplasia with lower urinary tract symptoms; R33.8 Other retention of urine; R35.0 Frequency of micturition; I10 Essential (primary) hypertension; Z79.01 Long term (current) use of anticoagulants; Z86.718 Personal history of other venous thrombosis and embolism
CPT/HCPCS: 36415; 70450; 70496; 70498; 70544; 70547; 70551; 71045; 80048; 80053; 80061; 80307; 81001; 83036; 84443; 84484; 85025; 92526; 93005; 93306; 94002; 94003; 95819; 97163; 97166; 97530; 97802; 99285; J7030; J7040; Q9957; Q9967; A4216

== ENCOUNTER 2018-02-14 13:00 | Outpatient (RCR) | payer MEDICARE, SELFPAY ==
--- NOTE | 2017-10-18 12:26 | HP.PTEVAL ---
Patient's Visit Information ASHLEY SANTANA is a 71 year old M referred to Physical Therapy by Eliud Belcher with a diagnosis of CVA,HEMIPARESIS AFECTING LEFT SIDE LATE AFFECT. Date of Evaluation: 10/18/17 Physical Therapist: Jose Earl PT, - Visit Plan Frequency: 2x /Week Duration: 4 Weeks Plan: gait training,balance program,strength BLE ,motor control,transfer training - Subjective Subjective: This 71 y/o male presents to physical with CVA with left side hemiparesis. Patient had CVA April 09 2016 ambulance [facility] for about one month found CVA through diagnostics. Ptient was trandferred to [facility] for Rehab then D/C to home. Patient attempted Rehab at [facility] but too intense.Patient then transferred to [facility] until JULY 2017,then d/c to home for [facility] PT October 2017. Spouse primary epitaxial reactor operator. Spouse assist for bathing, dressing,uses shower chair. does cooking ,cleaning. Patient walks with min distances.Patient can transfer with supervsion and assist with bed moblity. Patient has w/c ,LBQC,AFO,jelani-walker,shower chair.C/O parathesia/tingling left leg diminished light touch..Patient recently hospitalized May for seizures.Patient had peg tube removed. HOME SITUATION: one story home with ramp. SOCIAL: - Objective POSTURE: posterior pelvic tilt,rounded shoulders. NEURO: c/o parathesia left leg ,reflexes 0/3 achilles /patella tendon on left ,right 1/3,light touch intact. FLEXABLITY: hams mod tight bilateral,tight heel cord. TONE: hypotontic eft knee /hip ,ankle poor tone,left UE poor tone increase tricep. PROM: left hip/knee WFL ,ankle calf -10. STANDING BALANCE: poor+ with LBQC. SITTING BALANCE: fair+ static/dynamic. BED MOBLITY: supine-sit mod assist with legs and trunk supine-sit. TRANSFERS:sit-stand with mod assist with assist with placemnt of left leg. GAIT: foward posture,hip extended ,knee locked in extension with AFO ,decrease motor control left leg placement 3 point gait with min assisit 50 feet - Goals Goal 1:: Independant with HEP with spouse assist. Goal Time Frame: 4-6 Weeks Goal 2:: Ambulate 150 with SBA/CGA assist with AFO left LBQC with improve gaity Goal Time Frame: 4-6 Weeks Goal 3:: Patient improve dynamic balance with gait fair- with cane Goal Time Frame: 4-6 Weeks Goal 4:: Patient improve motor control left leg to improve gait Goal Time Frame: 4-6 Weeks Goal 5:: Patient improve transfers sit-stand with min assist. Goal Time Frame: 4-6 Weeks Goal 6:: Patient to improve bed mobility supibne-sit with min assist Goal Time Frame: 4-6 Weeks - Rehabilitation Potential Physical Therapy Diagnosis: This 71 y/o male had CVA affecting left side with poor balance ,min assist with gait,mod assisit with transfers ,requires assist mwith ADLS' thus benifit from skilled PT Rehabilitation Potential: Good - Anticipated Interventions Patient/Client Instruction: Educate patient on: Condition, Plan of Care For the Purpose of:: To improve muscle performance and motor function, To improve ability to perform ADL's, To increase tolerance to activity/condition/position, To improve performance and independence with ADL's, To decrease level of supervision to perform tasks, To improve ability of physical actions for home/community/work/leisure, To improve gait and locomotor functions, To improve endurance, To improve balance, To improve safety with gait, To assume or resume ADL's, To improve ability to perform tasks related to life management Therapeutic Exercise to Include: Strength training, Endurance training, Balance training, Body mechanics, Gait and locomotor training, Passive ROM For the Purpose of:: To improve muscle performance and motor function, To improve ability to perform ADL's, To increase tolerance to activity/condition/position, To improve performance and independence with ADL's, To decrease level of supervision to perform tasks, To improve ability of physical actions for home/community/work/leisure, To improve gait and locomotor functions, To improve endurance, To improve balance, To improve safety with gait Functional Training to Include: Functional sports training For the Purpose of:: To improve muscle performance and motor function, To increase tolerance to activity/condition/position, To improve gait and locomotor functions, To improve safety with gait Thank you for the opportunity to evaluate your patient. For Medicare and Medicare HMO plans, please review the plan of care and approve it. It will need to be FAXED BACK to us at [phone] for Medicare purposes. Please let me know if there are questions or concerns regarding this plan of care. Physician Signature: Date:
--- NOTE | 2017-11-17 12:50 | HP.PTREVAL_ITS ---
Eliud Belcher, It has been my pleasure to treat ASHLEY SANTANA over the last 9 visits for CVA, HEMIPARESIS AFECTING LEFT SIDE LATE AFFECT. Please see the progress note below for an update on the physical therapy plan of care! Subjective: Patient doing better . Ambulating more at home further distances. Spouse present wants to eventually to try stairs. Transfers much easier Objective/Function: POSTURE: posterior pelvic tilt ,rounded shoulders head foward ,sling inact. GAIT: Ambulate with jelani-walker 130 feet x1,80 x1 with CGA with w/c follow with cues fot technique. NEURO: left lower leg hypotononc , left UE flaccid. reflexes achilles/patella 1/3. TRANSFERS: sit-stand Min assisit with cues for left leg. BED MOBLITTY: supine-sit mod assist. MMT: quads/hams 3-/5 right ,left 4-/5 ,hip flexion left 2/5,right 3+/5. BALANCE: poor+ with device Plan Plan: cont with PT intervention 2x/week for 4weeks Goals Goal 1:: Independant with HEP with spouse assist. Goal Time Frame: 4-6 Weeks Goal Progress: Progressing Goal 2:: Ambulate 150 with SBA/CGA assist with AFO left LBQC with improve gaity Goal Time Frame: 4-6 Weeks Goal Progress: Progressing Goal 3:: Patient improve dynamic balance with gait fair- with cane Goal Time Frame: 8-12 Weeks Goal 4:: Patient improve motor control left leg to improve gait Goal Time Frame: 4-6 Weeks Goal Progress: Progressing Goal 5:: Patient improve transfers sit-stand with min assist. Goal Time Frame: 4-6 Weeks Goal Progress: Progressing Goal 6:: Patient to improve bed mobility supibne-sit with min assist Goal Time Frame: 4-6 Weeks Goal Progress: Progressing Anticipated Interventions Patient/Client Instruction: Educate patient on: Condition, Plan of Care For the Purpose of:: To improve muscle performance and motor function, To improve ability to perform ADL's, To increase tolerance to activity/condition/ position, To improve performance and independence with ADL's, To decrease level of supervision to perform tasks, To improve ability of physical actions for home /community/work/leisure, To improve gait and locomotor functions, To improve endurance, To improve balance, To improve safety with gait, To assume or resume ADL's, To improve ability to perform tasks related to life management Therapeutic Exercise to Include: Strength training, Endurance training, Balance training, Body mechanics, Gait and locomotor training, Passive ROM For the Purpose of:: To improve muscle performance and motor function, To improve ability to perform ADL's, To increase tolerance to activity/condition/ position, To improve performance and independence with ADL's, To decrease level of supervision to perform tasks, To improve ability of physical actions for home /community/work/leisure, To improve gait and locomotor functions, To improve endurance, To improve balance, To improve safety with gait Functional Training to Include: Functional sports training For the Purpose of:: To improve muscle performance and motor function, To increase tolerance to activity/condition/position, To improve gait and locomotor functions, To improve safety with gait Please do not hesitate to contact me at [phone] by phone or Fax: if you have questions or concerns regarding this new plan of care! Sincerely, Jose Earl PT,
--- NOTE | 2017-12-14 13:07 | HP.PTEVAL_ITS ---
Patient's Visit Information ASHLEY SANTANA is a 71 year old M referred to Physical Therapy by Eliud Belcher with a diagnosis of CVA,HEMIPARESIS AFECTING LEFT SIDE LATE AFFECT. Date of Evaluation: 10/18/17 Physical Therapist: Jose Earl, PT, - Visit Plan Frequency: 2x /Week Duration: 4 Weeks Plan: cont with PT intervention progressive gait training,balance ,neuromuscular ,tranfers and strengthening 2x/week for 4weeks. - Subjective Subjective: This 71 y/o male presents to physical with CVA with left side hemiparesis. Patient had CVA April 09 2016 ambulance [facility] for about one month found CVA through diagnostics. Ptient was trandferred to [facility] for Rehab then D/C to home. Patient attempted Rehab at [facility] but too intense.Patient then transferred to [facility] until JULY 2017,then d/c to home for [facility] PT October 2017. Spouse primary voip network technician. Spouse assist for bathing, dressing,uses shower chair. does cooking ,cleaning. Patient walks with min distances.Patient can transfer with supervsion and assist with bed moblity. Patient has w/c ,LBQC,AFO,jelani-walker,shower chair.C/O parathesia/tingling left leg diminished light touch..Patient recently hospitalized May for seizures.Patient had peg tube removed. HOME SITUATION: one story home with ramp. SOCIAL: - Objective POSTURE: posterior pelvic tilt,rounded shoulders. NEURO: c/o parathesia left leg ,reflexes 0/3 achilles /patella tendon on left ,right 1/3,light touch intact. FLEXABLITY: hams mod tight bilateral,tight heel cord. TONE: hypotontic eft knee /hip ,ankle poor tone,left UE poor tone increase tricep. PROM: left hip/knee WFL ,ankle calf -10. STANDING BALANCE: poor+ with LBQC. SITTING BALANCE: fair+ static/dynamic. BED MOBLITY: supine-sit mod assist with legs and trunk supine-sit. TRANSFERS:sit-stand with mod assist with assist with placemnt of left leg. GAIT: foward posture,hip extended ,knee locked in extension with AFO ,decrease motor control left leg placement 3 point gait with min assisit 50 feet - Goals Goal 1:: Independant with HEP with spouse assist. Goal Time Frame: 4-6 Weeks Goal 2:: Ambulate 150 with SBA/CGA assist with AFO left LBQC with improve gaity Goal Time Frame: 4-6 Weeks Goal 3:: Patient improve dynamic balance with gait fair- with cane Goal Time Frame: 8-12 Weeks Goal 4:: Patient improve motor control left leg to improve gait Goal Time Frame: 4-6 Weeks Goal 5:: Patient improve transfers sit-stand with min assist. Goal Time Frame: 4-6 Weeks Goal 6:: Patient to improve bed mobility supibne-sit with min assist Goal Time Frame: 4-6 Weeks - Rehabilitation Potential Physical Therapy Diagnosis: This 71 y/o male had CVA affecting left side with poor balance ,min assist with gait,mod assisit with transfers ,requires assist mwith ADLS' thus benifit from skilled PT Rehabilitation Potential: Good - Anticipated Interventions Patient/Client Instruction: Educate patient on: Condition, Plan of Care For the Purpose of:: To improve muscle performance and motor function, To improve ability to perform ADL's, To increase tolerance to activity/condition/position, To improve performance and independence with ADL's, To decrease level of supervision to perform tasks, To improve ability of physical actions for home/community/work/leisure, To improve gait and locomotor functions, To improve endurance, To improve balance, To improve safety with gait, To assume or resume ADL's, To improve ability to perform tasks related to life management Therapeutic Exercise to Include: Strength training, Endurance training, Balance training, Body mechanics, Gait and locomotor training, Passive ROM For the Purpose of:: To improve muscle performance and motor function, To improve ability to perform ADL's, To increase tolerance to activity/condition/position, To improve performance and independence with ADL's, To decrease level of supervision to perform tasks, To improve ability of physical actions for home/community/work/leisure, To improve gait and locomotor functions, To improve endurance, To improve balance, To improve safety with gait Functional Training to Include: Functional sports training For the Purpose of:: To improve muscle performance and motor function, To increase tolerance to activity/condition/position, To improve gait and locomotor functions, To improve safety with gait Thank you for the opportunity to evaluate your patient. For Medicare and Medicare HMO plans, please review the plan of care and approve it. It will need to be FAXED BACK to us at [phone] for Medicare purposes. Please let me know if there are questions or concerns regarding this plan of care. Physician Signature: Date:
--- NOTE | 2017-12-19 07:56 | HP.PTREVAL ---
Eliud Belcher, It has been my pleasure to treat ASHLEY SANTANA over the last 16 visits for CVA,HEMIPARESIS AFECTING LEFT SIDE LATE AFFECT. Please see the progress note below for an update on the physical therapy plan of care! Subjective: Doing better overall..getting up from chair Objective/Function: POSTURE: posterior pelvic tilt ,rounded shoulders head foward ,sling inact. GAIT: Ambulate with jelani-walker 130 feet x1,10 x1 with CGA with w/c follow with cues fot technique with improved ablity to maitain foot left straight. NEURO: left lower leg hypotononc ,left UE flaccid. reflexes achilles/patella 1/3. TRANSFERS: sit-stand Min assisit with cues for left leg. BED MOBLITTY: supine-sit mod assist. MMT: quads/hams 3-/5 right ,left 4-/5 ,hip flexion left 2/5,right 3+/5. BALANCE: poor+ with device Plan Plan: cont with PT intervention progressive gait training,balance ,neuromuscular ,tranfers and strengthening 2x/week for 4weeks. Goals Goal 1:: Independant with HEP with spouse assist. Goal Time Frame: 4-6 Weeks Goal Progress: Progressing Goal 2:: Ambulate 150 with SBA/CGA assist with AFO left LBQC with improve gaity Goal Time Frame: 4-6 Weeks Goal Progress: Progressing Goal 3:: Patient improve dynamic balance with gait fair- with cane Goal Time Frame: 8-12 Weeks Goal 4:: Patient improve motor control left leg to improve gait Goal Time Frame: 4-6 Weeks Goal Progress: Progressing Goal 5:: Patient improve transfers sit-stand with min assist. Goal Time Frame: 4-6 Weeks Goal Progress: Progressing Goal 6:: Patient to improve bed mobility supibne-sit with min assist Goal Time Frame: 4-6 Weeks Goal Progress: Progressing Anticipated Interventions Patient/Client Instruction: Educate patient on: Condition, Plan of Care For the Purpose of:: To improve muscle performance and motor function, To improve ability to perform ADL's, To increase tolerance to activity/condition/position, To improve performance and independence with ADL's, To decrease level of supervision to perform tasks, To improve ability of physical actions for home/community/work/leisure, To improve gait and locomotor functions, To improve endurance, To improve balance, To improve safety with gait, To assume or resume ADL's, To improve ability to perform tasks related to life management Therapeutic Exercise to Include: Strength training, Endurance training, Balance training, Body mechanics, Gait and locomotor training, Passive ROM For the Purpose of:: To improve muscle performance and motor function, To improve ability to perform ADL's, To increase tolerance to activity/condition/position, To improve performance and independence with ADL's, To decrease level of supervision to perform tasks, To improve ability of physical actions for home/community/work/leisure, To improve gait and locomotor functions, To improve endurance, To improve balance, To improve safety with gait Functional Training to Include: Functional sports training For the Purpose of:: To improve muscle performance and motor function, To increase tolerance to activity/condition/position, To improve gait and locomotor functions, To improve safety with gait Please do not hesitate to contact me at [phone] by phone or if you have questions or concerns regarding this new plan of care! Sincerely, Jose Earl PT,
--- NOTE | 2018-01-11 11:49 | HP.PTREVAL ---
Eliud Belcher, It has been my pleasure to treat ASHLEY SANTANA over the last 24 visits for CVA,HEMIPARESIS AFECTING LEFT SIDE LATE AFFECT. Please see the progress note below for an update on the physical therapy plan of care! Subjective: Patient and states that doesnt stay in w/c at home. Waling every where bathroom,kitchen ect. Patient able to stand with brushing teeth and self hygine Objective/Function: POSTURE: mild foward posture,head foward head posterior pelvic tilt. TANSFERS: sit-stand SBA/CGA. BALANCE: fair with walk cane. MMT: quads/hams hip 3-/5. GAIT: ambulates with VALENTINA-WALKER 175 FEET with SBA/CGA Plan Plan: cont with PT intervention progressive gait training,balance ,neuromuscular ,tranfers and strengthening 2x/week for 4weeks. Goals Goal 1:: Independant with HEP with spouse assist. Goal Time Frame: 4-6 Weeks Goal Progress: Progressing Goal 2:: Ambulate 150 with SBA/CGA assist with AFO left LBQC with improve gaity Goal Time Frame: 4-6 Weeks Goal Progress: Progressing Goal 3:: Patient improve dynamic balance with gait fair- with cane Goal Time Frame: 8-12 Weeks Goal 4:: Patient improve motor control left leg to improve gait Goal Time Frame: 4-6 Weeks Goal Progress: Progressing Goal 5:: Patient improve transfers sit-stand with min assist. Goal Time Frame: 4-6 Weeks Goal Progress: Progressing Goal 6:: Patient to improve bed mobility supibne-sit with min assist Goal Time Frame: 4-6 Weeks Goal Progress: Progressing Anticipated Interventions Patient/Client Instruction: Educate patient on: Condition, Plan of Care For the Purpose of:: To improve muscle performance and motor function, To improve ability to perform ADL's, To increase tolerance to activity/condition/position, To improve performance and independence with ADL's, To decrease level of supervision to perform tasks, To improve ability of physical actions for home/community/work/leisure, To improve gait and locomotor functions, To improve endurance, To improve balance, To improve safety with gait, To assume or resume ADL's, To improve ability to perform tasks related to life management Therapeutic Exercise to Include: Strength training, Endurance training, Balance training, Body mechanics, Gait and locomotor training, Passive ROM For the Purpose of:: To improve muscle performance and motor function, To improve ability to perform ADL's, To increase tolerance to activity/condition/position, To improve performance and independence with ADL's, To decrease level of supervision to perform tasks, To improve ability of physical actions for home/community/work/leisure, To improve gait and locomotor functions, To improve endurance, To improve balance, To improve safety with gait Functional Training to Include: Functional sports training For the Purpose of:: To improve muscle performance and motor function, To increase tolerance to activity/condition/position, To improve gait and locomotor functions, To improve safety with gait Please do not hesitate to contact me at [phone] by phone or if you have questions or concerns regarding this new plan of care! Sincerely, Jose Earl PT,
--- NOTE | 2018-02-14 14:08 | HP.PTDCSUM ---
HP - PT D/C Summary It has been my pleasure to treat ASHLEY SANTANA under orders from Eliud Belcher, for the diagnosis of CVA,HEMIPARESIS AFECTING LEFT SIDE LATE AFFECT for a total of 31 visit(s). Discharge Date: 02/14/18 Please see the following information for a summary of their discharge status. - Subjective Subjective: Doing okay. stated walking more at home doesnt use. W/C. - Overall Improvement % Improvement: 50 - Objective Objective/Function: POSTURE: MILD FOWARD POSTURE. GAIT: AMBULATES WITH QC 130 x4 SBA. BALANCE: FAIR- QC. MMT: QUADS/HAMS 3-/5,3-/5 HIP FLEXION. TRANSFERS- SIT-STAND SBA/CGA - Goals Goal 1:: Independant with HEP with spouse assist. Goal Progress: Goal Met Goal 2:: Ambulate 150 with SBA/CGA assist with AFO left LBQC with improve gaity Goal Progress: Goal Met Goal 3:: Patient improve dynamic balance with gait fair- with cane Goal Progress: Goal Met Goal 4:: Patient improve motor control left leg to improve gait Goal Progress: Goal Met Goal 5:: Patient improve transfers sit-stand with min assist. Goal Progress: Goal Met Goal 6:: Patient to improve bed mobility supibne-sit with min assist Goal Progress: Progressing - Plan Plan: D/C TO HEP - D/C Information Discharge Comments: HEP AND ASSIST TO If there are questions or concerns regarding this patient's physical therapy, please feel free to call me at [phone]. Thank you for the referral of this patient. Sincerely, Jose Earl, PT,
== END 2018-02-14 19:00 | disposition home or self-care (01) ==
LOC: PT 13:00
PROVIDERS: Family Provider Family Medicine; PCP Family Medicine; Visit Provider Family Medicine
DX: I69.354 Hemiplegia and hemiparesis following cerebral infarction affecting left non-dominant side (principal)
CPT/HCPCS: 97110; 97116; 97163; 97530

== ENCOUNTER 2018-09-13 11:00 | Outpatient (RCR) | payer MEDICARE, SELFPAY ==
--- NOTE | 2018-07-02 13:01 | HP.OTEVAL_ITS ---
Patient's Visit Information ASHLEY SANTANA is a 72 year old M, referred to Occupational Therapy by Eliud Belcher MD, with a diagnosis of CVA. Date of Evaluation: 07/02/18 Occupational Therapist: Lupe Andrade - Subjective Subjective: Arrived with , Valerie, and noted that he has shown some regress ion over the last couple of weeks. Noted that original CVA was in March 2016. He noted recent MRI and he noted that MRI was clear of any further CVAs. He noted that he has recently had some pins and needle feeling in the L UE. - ADLs Dressing: Overhead shirt, Coat, Pants, Socks, Shoes Comments: able to undress but assistance needed to dress. She noted that is baseline. Fasteners: Tie shoes, Buttons, Zippers, [place] Eating: Use silverware, Cut food Bathing: Handle washcloth & soap Grooming: Shave, Squeeze toothpaste on, Spencer teeth Kitchen: Chop with knife, Peel fruits & vegetables, Open jars, Open bottle caps, Pour from pitcher, Lift saucepan Comments: He is R handed but has increased difficulty with all bilateral hand control tasks. - Pain Left Arm 0 Pain Intensity Range: 0, 3, 4 - ROM Shoulder: Flexion: R WFL ; PROM L 0-94; Abduction R WFL, PROM L 0-100 Elbow: R WFL, L 3-80 Forearm: R WFL, L passively able to get to neutral Wrist: R WFL, L passive flexion 0-75, unable to move past neutral for extension MP: R WFL, L passive to netrual PIP: R WFL, L passive to netrual DIP: R WFL, L passive to netrual ROM Comments: Increased flexor tone observed in L forearm with passive movements. Finger in flexed position but able to complete strengthening in tenodesis position to promote finger extension. - Strength Shoulder: R 5/5, L 1/5 Elbow: Flexion R 5/5, L 0/5 Forearm: R 5/5, L 0/5 Wrist: R 5/5, L 0/5 Tax Audit Manager: R 60, L unable at this time. 0/5 Lateral Pinch: R 60, L unable at this time. 0/5 Tripod Pinch: R 60, L unable at this time. 0/5 Tip-to-Tip Pinch: R 60, L unable at this time. 0/5 - Sensation Thumb: R 3.84, L red lined Index: R 3.22, L red lined Middle: R 4.17, L red lined Ring: R 3.61, 4.93 - red lined Little: R 3.84, L red lined Stereognosis: Abnormal - Left Kinesthesia: Abnormal - Left Proprioception: Abnormal - Left Sensation Comments: Decreased ability to discriminate sensory stimuli to L hand. - Quick DASH-Disab of Arm,Shoulder& Hand Quick DASH Score: 77.2725 - Goals Goal:: Driss to increase strength of L UE to 1/5 for elbow flexion, wrist flexion, and wrist extension to promote increased strength and movement of L UE needed for ADL/ IADLS. Goal:: Driss to increased AAROM of L UE by 10 degrees to promote increased joint mobility 80% of the time by d/c. Goal:: Driss and to complete pain management techniques to promote increased pain control of L UE 4/5 trials 80% of the time by d/c. Goal:: Driss and Valerie to complete positioning and edema management technique of L UE to help manage swelling 4/5 trials 80% of the time by d/c. Goal:: Driss to be CGA to complete one handed UB and LB dressing techniques to promote increased participation in ADL routine by d/c. Goal:: Driss to be mod I to complete HEP with BUE to promote increased B UE strength, ROM, and function to promote particpation in ADL routine by d/c. - Rehabilitation General Assessment: Driss arrived with Ot evaluation with , Nicole. Driss had his original CVA two years ago in March 2016. He has since received outpatient PT services but has not received previous outpatient OT services. His noted that he appears to be getting weaker over the last few months. Driss exhibits increased flexor tone throughout hand with increased fist of hand in resting position. When his wrist is placed into flexion a tenodesis grasp is able to be obtained with some increased ability to passively extension of fingers but when he is unable to move past neutral with passive extension. Ashley has significantly limited ROM, Strength, and functional use of L UE. Skilled OT warranted to promote increased functional movements of L UE, ROM, Strength, increased one-handed techniques, as well as increased tone regulation to promote returning function for LUE. Rehabilitation Potential: Good - Anticipated Interventions Anticipated Interventions: A/AAROM/PROM, Strengthening, Edema Control, Desensitization, Sensory Retraining, Modalities, Orthoses, Joint Prote ction/Energy Conservation, Ergonomic Education, Dynamic Sitting Balance, Fine Motor Coord/Matthew, Neuro Reeducation, ADL Training, Caregiver Training, Home Program - Visit Plan Frequency: 2x /Week Duration: 4 Weeks General Plan: Driss to complete skilled Ot services for edema management and positioning of hemiplegic L UE, ROM, strengthening, tone regulation and management, completion of modalities to promote movement and regulate tone, and general ADL training to promote participation and progression with ADL/IADLs. TEXT: Thank you for the opportunity to evaluate your patient. For Medicare and Medicare HMO plans, please review the plan of care and approve it. It will need to be FAXED BACK to us at [phone] for Medicare purposes. Please let me know if there are questions or concerns regarding this plan of care. Physician Signature:_ Date:
--- NOTE | 2018-07-02 14:10 | HP.PTEVAL_ITS ---
Patient's Visit Information ASHLEY SANTANA is a 72 year old M referred to Physical Therapy by Eliud Belcher MD with a diagnosis of CVA and flaccid L UE. Date of Evaluation: 07/02/18 Physical Therapist: FELIPE Campos - Visit Plan Frequency: 2x /Week Duration: 6 Weeks Plan: 2X/ week for 6 weeks for sit to stand transfers, turning 180 degrees with jelani-walker, curb steps, gait mechanics and endurance, standing balance, rolling and getting in and out of a bed with HEP - Subjective Findings: Pt reports that he had a stroke Apr 09, 2016 and he is trying to get to the point where he was before or close to it. He knows that he will not walk long distances. He was walking 409 feet last time he was here. Currently he walks from bedroom to bedroom and walks around the couch etc. He does not have endurance with his walking. Because of the winter he was not walking as much and his endurance. L AFO and jelani walker and barely touches him and he likes to know that she is present. He struggles getting up out of a chair and his helps him get up.... thinks that it is in his head cause if she touches his shirt then he is ok. He can not roll over in bed, radha a little to the L side. His PT goals would be to walking better and longer distances. Has a ramp at his house but has trouble going to daughters house with 1 step. - Objective Gait: walks with a jelani walker in the R hand approx 40 feet with CGA. He turns 180 degrees with no picking up his L foot. Sit to stand with min A. Pt is able to stand for approx 20 seconds unsupported with flexed trunk. LE MMT: R hip flex 4-/5, L hip flex 2-/5, R knee ext 4/5 and L 3-/5, R knee flex 4-/5 and L 3- /5. Pt has a hard time scooting to get onto the mat table. Pt needs assistance to get into bed/mat table for his LE - Goals Goal 1:: I HEP Goal Time Frame: 6-8 Weeks Goal 2:: Be able to go up and down a step with a railing or // bar with min A to be able to get into daughters house with ease. Goal Time Frame: 6-8 Weeks Goal 3:: Be able to sit to stand X 5 with SBA Goal Time Frame: 6-8 Weeks Goal 4:: Be able to walk 250 feet with jelani walker without a rest break with CGA Goal Time Frame: 6-8 Weeks Goal 5:: Be able to sideways walk length of // bars X 4 lengths with use of the // bars Goal Time Frame: 6-8 Weeks - Rehabilitation Potential Rehabilitation Potential: Good - Anticipated Interventions Patient/Client Instruction: Educate patient on: Condition, Plan of Care For the Purpose of:: To improve muscle performance and motor function, To improve ability to perform ADL's, To increase tolerance to activity/condition/position, To improve performance and independence with ADL's, To decrease level of supervision to perform tasks, To improve ability of physical actions for home/community/work/leisure, To improve gait and locomotor functions, To improve balance, To improve safety with gait Therapeutic Exercise to Include: Strength training, Endurance training, Balance training, Body mechanics, Postural training, Gait and locomotor training, Neuromotor development, Passive ROM, Active ROM For the Purpose of:: To improve muscle performance and motor function, To improve ability to perform ADL's, To increase tolerance to activity/condition/position, To improve performance and independence with ADL's, To decrease level of supervision to perform tasks, To improve ability of physical actions for home/community/work/leisure, To improve gait and locomotor functions, To improve endurance, To improve balance, To improve safety with gait Functional Training to Include: ADL Training, Gait training For the Purpose of:: To improve nutrient delivery to tissue, To improve balance, To improve safety with gait Thank you for the opportunity to evaluate your patient. For Medicare and Medicare HMO plans, please review the plan of care and approve it. It will need to be FAXED BACK to us at [phone] for Medicare purposes. For Medicare only, by signing this I certify the plan of care. Please let me know if there are questions or concerns regarding this plan of care. Physician Signature: Date:
--- NOTE | 2018-08-01 13:57 | HP.PTREVAL ---
Eliud Belcher MD, It has been my pleasure to treat ASHLEY SANTANA over the last 9 visits for CVA and flaccid L UE. Please see the progress note below for an update on the physical therapy plan of care! Subjective: Pt reports that he is tired today but he feels that he is doing better. His thinks that he is doing better as well. Objective/Function: Sit to stand X 5 but with CGA to min A as fatigue sets in. Vc's to bring L leg back underneath him. Sideways walking in // bars.... pts struggles with sideways walking to the R. He does well with sidestepping the L with use of the // bar. Pt does not like to move his hips to weight shift to the L LE. Pt has a hard time backing into a chair with bringing his L leg back into extension. 4 inch step up Plan Plan: 2X/ week for 4 weeks for sit to stand transfers, turning 180 degrees with jelani-walker, weight transfers/shifts, gait mechanics and endurance, standing balance, rolling and getting in and out of a bed with HEP Goals Goal 1:: I HEP Goal Time Frame: 6-8 Weeks Goal 2:: Be able to back up to a chair with min A and ease of getting L leg back to back up into the chair Goal Time Frame: 6-8 Weeks Goal 3:: Be able to sit to stand X 5 with SBA Goal Time Frame: 6-8 Weeks Goal Progress: Progressing Goal 4:: Be able to walk 250 feet with jelani walker without a rest break with CGA Goal Time Frame: 6-8 Weeks Goal Progress: Progressing Goal 5:: Be able to sideways walk length of // bars X 2 lengths with use of the // bars Goal Time Frame: 6-8 Weeks Anticipated Interventions Patient/Client Instruction: Educate patient on: Condition, Plan of Care For the Purpose of:: To improve muscle performance and motor function, To improve ability to perform ADL's, To increase tolerance to activity/condition/position, To improve performance and independence with ADL's, To decrease level of supervision to perform tasks, To improve ability of physical actions for home/community/work/leisure, To improve gait and locomotor functions, To improve balance, To improve safety with gait Therapeutic Exercise to Include: Strength training, Endurance training, Balance training, Body mechanics, Postural training, Gait and locomotor training, Neuromotor development, Passive ROM, Active ROM For the Purpose of:: To improve muscle performance and motor function, To improve ability to perform ADL's, To increase tolerance to activity/condition/position, To improve performance and independence with ADL's, To decrease level of supervision to perform tasks, To improve ability of physical actions for home/community/work/leisure, To improve gait and locomotor functions, To improve endurance, To improve balance, To improve safety with gait Functional Training to Include: ADL Training, Gait training For the Purpose of:: To improve nutrient delivery to tissue, To improve balance, To improve safety with gait Please do not hesitate to contact me at [phone] by phone or if you have questions or concerns regarding this new plan of care! Sincerely, Jaci Nice, MPT
--- NOTE | 2018-08-01 15:18 | OTREVAL_ITS ---
Eliud Belcher MD, It has been my pleasure to treat ASHLEY SANTANA over the last 9 visits for CVA. Please see the progress note below for an update on the occupational therapy plan of care! Subjective: Arrived with , Valerie. Valerie present for session. Completed tx in open OT area. Noted they are waiting on approval by insurance for Botox; Moiz peters has cleared for Botox to L hand for tonme management. Both noted he has been trying to moved hand and work it more and is getting some pins and needles. Objective/Function: Completed OT re-assessment on this date of 08/01/18 and results are as follows: ROM. Shoulder: - flexion: R WFL, L PROM 0-100. - extension: R WFL, L PROM 0-41. - abduction: R WFL, L PROM 0-111, gravity eliminated 0-33 with increased compensation of upper trapezius and supraspinatus. - IR: R WFL, L PROM 0-70. - ER: R WFL, L PROM 0-61. Elbow: - R WFL, L PROM 0-75. Wrist. -flexion: R WFL, L PROM 0-69. -extension: R WFL, L PROM 0-16. Increased flexor tone throughout the hand limits AROM for L hand. Strength: Shoulder: - Flexion: R 5/5, L 1/5. - Extension: R 5/5, L 1/5. - abduction: R 5/5, L 1/5 in gravity eliminated plane. Elbow. - Flexion R 5/5, L 0/5. Wrist: - flexion: R 5/5, L 0/5. - extension: R 5/5, L 0/5. [employer] Supervisor: R 57, L unable at this time. Lateral pinch : R 17, L unable. Tripod: R 19, L unable. Pincer: R 8, L unable. Sensation: R 2nd 3.22, 3rd 3.22, 4th 3.61, 5th 4.08, thumb 3.22. L 2nd 6.65 (red lined), 3rd 6.65 (red lined),4th 6.65 (red lined),5th 6.65 (red lined), thumb 6.65 (red lined). Attempted bed mobility at bed table to promote gravity eliminated testing of L UE. He is max A to completed bed mobility as this was completed differently that at home and he exhibits increased difficulty with new task. Plan Frequency: 2x /Week Duration: 8 weeks Visits in this POC: total 24 Plan: continue POC for for 2x weekly appointment for the next 8 weeks. They are to try and schedule post Botox injections as much as possible to promote increased ROM and decrease tone of L hand. Will continue to promote working on increased B UE ROM and strength to promote returning of fx ability of LUE for increased QOL and increased (i) in ADL/IADls. Goals - Goals Goal:: Driss to increase strength of L UE to 1/5 for elbow flexion, wrist flexion, and wrist extension to promote increased strength and movement of L UE needed for ADL/ IADLS. Goal:: Rdiss to increased AAROM of L UE by 10 degrees to promote increased joint mobility 80% of the time by d/c. Goal:: Driss and to complete pain management techniques to promote increased pain control of L UE 4/5 trials 80% of the time by d/c. Goal:: Driss and Valerie to complete positioning and edema management technique of L UE to help manage swelling 4/5 trials 80% of the time by d/c. Goal:: Driss to be CGA to complete one handed UB and LB dressing techniques to promote increased participation in ADL routine by d/c. Goal:: Driss to be mod I to complete HEP with BUE to promote increased B UE strength, ROM, and function to promote particpation in ADL routine by d/c. Anticipated Interventions Anticipated Interventions: A/AAROM/PROM, Strengthening, Edema Control, Desensitization, Sensory Retraining, Modalities, Orthoses, Joint Protection/Energy Conservation, Ergonomic Education, Dynamic Sitting Balance, Fine Motor Coord/Matthew, Neuro Reeducation, ADL Training, Caregiver Training, Home Program Please do not hesitate to contact me at [phone] by phone or if you have questions or concerns regarding this new plan of care! Sincerely, Lupe Andrade, OTR/L
--- NOTE | 2018-10-12 12:58 | HP.OT.NRP ---
HP - Discharge Summary - Patient Information ASHLEY SANTANA was seen in my office for initial evaluation on 07/02/18. The following Plan of Care was established for this patient: Initial Frequency: 2x /Week Initial Duration: 8 weeks Plan: continue POC. Continue working wbing and hand mobility and ROM. Forgot to provided HEP sheet. In mailbox to educated and completed prior to taking home. - Anticipated Interventions Anticipated Interventions: A/AAROM/PROM, Strengthening, Edema Control, Desensitization, Sensory Retraining, Modalities, Orthoses, Joint Protection/Energy Conservation, Ergonomic Education, Dynamic Sitting Balance, Fine Motor Coord/Matthew, Neuro Reeducation, ADL Training, Caregiver Training, Home Program This patient was last seen in our office . Pertinent comments regarding their Occupational therapy will appear below: At this point I will be discontinuing this patient from occupational therapy. I would be happy to see this patient again in the future if found appropriate by the physician. Thank you! Lupe Andrade, OTR/L
--- NOTE | 2018-10-12 13:01 | HP.OT.NRP ---
HP - Discharge Summary - Patient Information ASHLEY SANTANA was seen in my office for initial evaluation on 07/02/18. The following Plan of Care was established for this patient: Initial Frequency: 2x /Week Initial Duration: 8 weeks Plan: continue POC. Continue working wbing and hand mobility and ROM. Forgot to provided HEP sheet. In mailbox to educated and completed prior to taking home. - Anticipated Interventions Anticipated Interventions: A/AAROM/PROM, Strengthening, Edema Control, Desensitization, Sensory Retraining, Modalities, Orthoses, Joint Protection/Energy Conservation, Ergonomic Education, Dynamic Sitting Balance, Fine Motor Coord/Matthew, Neuro Reeducation, ADL Training, Caregiver Training, Home Program This patient was last seen in our office 09/13/18. Pertinent comments regarding their Occupational therapy will appear below: Taking break from OT to focus on Botox injections of hand as recommended by OT. Was to completed 1x more follow up but did not schedule and will d/c. noted next Botox injection will be in November. At this point I will be discontinuing this patient from occupational therapy. I would be happy to see this patient again in the future if found appropriate by the physician. Thank you! Lupe Andrade, OTR/L
== END 2018-09-13 19:00 | disposition home or self-care (01) ==
LOC: OT 11:00
PROVIDERS: Family Provider Family Medicine; PCP Family Medicine; Referring Provider Family Medicine; Visit Provider Family Medicine
DX: I69.354 Hemiplegia and hemiparesis following cerebral infarction affecting left non-dominant side (principal)
CPT/HCPCS: 97110; 97112; 97116; 97161; 97166; 97168; 97530; 97760; 97763

== ENCOUNTER 2023-04-10 08:18 | Inpatient (IN) | payer MEDICARE, SELFPAY ==
[2023-04-10] VITALS (9 sets, daily range): BP systolic 87–135; BP diastolic 54–82; PULSE 56–86; RESP 15–20; TEMP 35.4–36.2; O2SAT 92–98; BMI 40.6; BMI 42.9
--- NOTE | 2023-04-10 08:36 | EKG12_ITS ---
Test Reason : SOB Blood Pressure : / mmHG Vent. Rate : 057 BPM Atrial Rate : 000 BPM P-R Int : 000 ms QRS Dur : 086 ms QT Int : 428 ms P-R-T Axes : 000 000 175 degrees QTc Int : 416 ms Sinus bradycardia Nonspecific ST and T wave abnormality Abnormal ECG Confirmed by IRMA SUERO, ELLA ([id number]), editor map ABEL MONTANO ([id number]) on 04/12/2023 9:11:37 AM Referred By: Confirmed By:ELLA SOLIS MD
--- NOTE | 2023-04-10 08:36 | CT_ITS ---
STUDY: CT CERVICAL SPINE WITHOUT CONTRAST REASON FOR EXAM: Male, 77 years old. Flaccid left arm following a recent fall. RADIATION DOSAGE (If Supplied By Facility): CTDIvol = ( 29.78 ) mGy, DLP = ( 626.56 ) mGycm TECHNIQUE: High resolution transaxial imaging was performed without contrast material. Sagittal and coronal images were reconstructed. Individualized dose optimization techniques were used for this CT. COMPARISON: None FINDINGS: Normal craniovertebral junction. There are degenerative changes of the anterior atlantoaxial articulation. Normal odontoid process. There is reversal of the normal cervical lordosis. Normal vertebral bodies and posterior osseous elements. C2-3: Mild degree of disc space narrowing. Facet joint osteoarthritis and hypertrophy worse on the right side. No significant stenosis seen. C3-4: Mild degree of disc space narrowing. Minimal anterior listhesis of C3 on C4 due to facet joint osteoarthritis and hypertrophy more prominent on the left side. Uncovertebral arthrosis. Moderate degree of the left and neural foraminal stenosis. C4-5: Mild degree of disc space narrowing. Facet joint osteoarthritis. C5-6: Moderate degree of disc space narrowing. Spondylosis. Uncovertebral arthrosis. Moderate degree of bilateral neural foraminal stenosis. C6-7: Marked degree of disc space narrowing. Uncovertebral arthrosis. Bilateral neural foraminal stenosis worse on the left side. C7-T1: Normal endplates. Normal disc height and morphology. Normal central canal and intervertebral neuroforamina. Atherosclerotic plaque formation of the carotid bifurcations bilaterally. CT/Spine Cervical without Contras IMPRESSION: Multilevel degenerative changes, as described above. Electronically Signed: Kamaljit Lainez MD at 9:28 EST ,
--- NOTE | 2023-04-10 08:36 | CT_ITS ---
STUDY: CT BRAIN WITHOUT CONTRAST REASON FOR EXAM: Male, 77 years old. Flaccid left upper extremity. Recent fall. RADIATION DOSAGE (If Supplied By Facility): CTDIvol = ( 44.99 ) mGy, DLP = ( 779.24 ) mGycm TECHNIQUE: Transaxial CT imaging of the brain was performed without administration of intravenous contrast material. Individualized dose optimization techniques were used for this CT. COMPARISON: Comparison is made with prior study dated June 21, 2007. FINDINGS: Normal soft tissue structures. Normal calvarium. Once again, there is a large area of encephalomalacia involving the most of the right frontal and temporal lobes extending to the posterior right parietal lobe. There is compensatory enlargement of the right lateral ventricle. Normal basal ganglia and thalami. Normal brainstem. Normal cerebellum. There is no intracranial hemorrhage. There are no findings of an acute ischemic infarction. There is opacification of the left maxillary sinus as well as the ethmoid sinuses are worse on the left side. Opacification of the sphenoid sinus more prominent on the left side. CT/Brain/Head without Contrast IMPRESSION: Large area of encephalomalacia involving the right frontal temporal parietal lobes with compensatory enlargement of the right lateral ventricle. Sinusitis. Electronically Signed: Kamaljit Lainez MD at 9:25 EST ,
--- NOTE | 2023-04-10 08:36 | RAD_ITS ---
STUDY: X-RAY CHEST REASON FOR EXAM: Male, 77 years old. Increasing shortness of breath. History of recent fall. TECHNIQUE: Single AP portable view of the chest. COMPARISON: Comparison is made with prior study June 20, 2017. FINDINGS: EKG electrodes are seen. Elevation of the right hemidiaphragm. There are increased perihilar markings worse on the right side suggestive possible bilateral perihilar infiltrates. Follow-up recommended. Stable granuloma in the right lower lobe. There is no demonstrated pleural abnormality. Normal size heart. Normal mediastinum and barbara. Normal visualized pulmonary arteries. There is atherosclerotic calcification of the aortic arch with tortuosity. Normal visualized thoracic spine. Normal visualized ribs, clavicles, and shoulders. There is no demonstrated abnormality of the visualized soft tissue structures of the upper abdomen. RAD/Chest 1 View (Portable) IMPRESSION: Increased bilateral perihilar markings suggestive bilateral perihilar infiltrates. Electronically Signed: Kamaljit Lainez MD at 8:59 EST ,
--- NOTE | 2023-04-10 08:37 | EX.ED.DYSGE1 ---
HPI History of Present Illness Chief Complaint: Shortness of Breath Detail of Chief Complaint: Weakness Informant: patient and spouse/S.O. Narrative Narrative: Patient presents via EMS secondary to weakness after a fall. He has a history of prior stroke with chronic left-sided weakness. Family was try to get him into bed last night when he fell. He denies any injury. Family was able to get him into bed. This morning he was too weak to get up so EMS was called. He does report a chronic cough that has been ongoing for quite some time. states that he went to a clinic and got 3 prescriptions. Symptoms seem to improve for a while but now seem to be worsening again. He has not had fever. He denies difficulty with swallowing or aspiration. [facility] Medical History (Updated 04/10/23 @ 09:[address] Aleida Sotomayor MD) Cerebrovascular accident (CVA) Chronic anticoagulation Hypertension Seizure Home Medications acetaminophen 325 mg tablet (Tylenol) 650 mg (2 x 325 mg) PO Q6H PRN PRN Pain ##0 05/19/16 [Rx Last Taken Unknown] aluminum-mag hydroxide-simethicone 400 mg-400 mg-40 mg/5 mL oral susp (Mag-Al Plus Extra Strength) 15 ml PO Q6H PRN PRN Indigestion ##0 05/19/16 [Rx Last Taken Unknown] apixaban 5 mg tablet (Eliquis) 5 mg PO BID 05/19/16 [Rx Last Taken 06/20/17 08:00] atorvastatin 80 mg tablet 80 mg PO QHS 05/19/16 [Rx Last Taken 06/19/17 22:00] bisacodyl 10 mg rectal suppository 10 mg RECTAL .PRN X 1 PRN Constipation ##0 05/19/16 [Rx Last Taken Unknown] calcium carbonate 500 mg-vitamin D3 5 mcg (200 unit) tablet (Oyster Shell Calcium-Vitamin D3) 1 tab PO BIDCM 05/19/16 [Rx Last Taken 06/20/17 08:00] loperamide 2 mg capsule 2 mg PO Q6H PRN PRN DIARRHEA/LOOSE STOOLS ##0 05/19/16 [Rx Last Taken Unknown] loratadine 10 mg tablet (Allergy Relief (loratadine)) 10 mg PO DAILY 05/19/16 [Rx Last Taken Unknown] lisinopril 10 mg tablet (Prinivil) 10 mg PO DAILY BP 01/16/17 [History Last Taken 06/20/17 08:00] potassium chloride 20 mEq tablet,extended release(part/cryst) (Klor-Con M) 10 meq PO DAILYCM supplement 01/16/17 [History Last Taken 06/20/17 08:00] baclofen 10 mg tablet 10 mg PO TID muscle spasms 06/20/17 [History Last Taken 06/20/17 17:00] nortriptyline 10 mg capsule 20 mg PO QHS depression 06/20/17 [History Last Taken 06/19/17 22:00] tamsulosin 0.4 mg capsule 0.4 mg PO DAILY urinary retention 06/20/17 [History Last Taken 06/19/17 22:00] levetiracetam 750 mg tablet 750 mg PO BID #60 tabs 06/22/17 [Rx Last Taken Unknown] Allergy/AdvReac Type Severity Reaction Status Date / Time No Known Allergies Allergy Verified 04/10/23 08:19 Social History Smoking Status: Former smoker ROS ROS ED Constitutional Constitutional ED: Denies chills or fever(s) Eyes Eyes: Denies discharge from eye(s) ENT ENT ED: Denies discharge from eye(s), rhinorrhea or sore throat Cardiovascular Cardiovascular: Denies chest pain or palpitations Respiratory/Chest Respiratory/Chest: Reports cough and dyspnea Gastrointestinal Gastrointestinal: Denies abdominal pain, nausea or vomiting Musculoskeletal Musculoskeletal: Denies back pain or extremity pain Integumentary Denies Abrasions or rash Neurologic Neurologic: Reports weakness; Denies headache(s) Psychiatric Psychiatric: Denies anxiety or depression Allergic/Immunologic Allergic/Immunologic ED: Denies lip swelling or urticaria EXAM Physical Exam Const Vital Signs: 04/10/23 08:20 04/10/23 08:25 04/10/23 09:25 Temperature 95.8 F L Temperature Source Temporal Pulse Rate 58 L 56 L Respiratory Rate 18 15 Respiratory Effort Short of Breath Respiratory Depth Normal Respiratory Pattern Normal Blood Pressure 119/79 131/69 H Blood Pressure Mean 92 89 Pulse Ox 94 98 Oxygen Delivery Method Room Air Room Air Room Air Positive well nourished and well developed General Appearance ED: well developed HEENT Reports moist mucous membranes Eyes EOMs intact bilaterally Chest Wall Chest Narrative: Old appearing ecchymosis across the shoulders and left upper chest. Resp normal respiratory effort Resp Narrative: Coarse breath sounds bilaterally. Cardio regular rate and regular rhythm GI non-tender Palpation: soft Extremity Extremity Narrative: Chronic left-sided weakness secondary to prior stroke. Neuro oriented x3 Skin no rashes or lesions noted MDM MDM MDM Narrative Medical decision making narrative: Patient placed on net lead developer. EKG obtained to evaluate for cardiac arrhythmia/ischemia. Chest x-ray obtained to evaluate for acute lung pathology, cardiac size, or mediastinal abnormality. Given the patient's fall he will be sent for CT of the head and C-spine. He is on chronic anticoagulation with Eliquis. IV line is initiated. Labwork obtained to evaluate for leukocytosis, anemia, and electrolyte derangement. Urinalysis obtained to evaluate for infection/hematuria. History & Record Review Discussion w/independent historian: Patient and Significant other Lab Data Attestation: I reviewed the patient's lab results. Labs: Laboratory Results - last 24 hr 04/10/23 08:45 WBC 4.6 RBC 3.89 L Hgb 10.8 L Hct 35.1 L MCV 90.2 MCH 27.8 MCHC 30.8 L RDW Std Deviation 54.2 H RDW Coeff of Ernst 17.2 H Plt Count 106 L MPV 9.7 Immature Gran % (Auto) 0.700 Neut % (Auto) 69.9 Lymph % (Auto) 20.9 [place] % (Auto) 7.0 Eos % (Auto) 1.3 Baso % (Auto) 0.2 Absolute Neuts (auto) 3.2 Absolute Lymphs (auto) 0.95 Nucleated RBC % 0 Sodium 146 H Potassium 3.9 Chloride 112 H Carbon Dioxide 30.0 Anion Gap 4 L BUN 29 H Creatinine 1.26 Estim Creat Clear Calc 62.06 Est GFR (MDRD) Af Amer 71 Est GFR (MDRD) Non-Af 59 L BUN/Creatinine Ratio 23.0 H Glucose 93 Calcium 9.2 B-Natriuretic Peptide 27.2 Radiography Chest X-Ray - ED: 1 View, Read by ED Physician, Chronic Changes and Right Infiltrate Diagnostic Testing: Clinical Impression(s) from Imaging Studies Brain CT 04/10/23 08:36 IMPRESSION: Large area of encephalomalacia involving the right frontal temporal parietal lobes with compensatory enlargement of the right lateral ventricle. Sinusitis. Electronically Signed: Kamaljit Lainez MD at 9:25 EST , Cervical Spine CT 04/10/23 08:36 IMPRESSION: Multilevel degenerative changes, as described above. Electronically Signed: Kamaljit Lainez MD at 9:28 EST , Chest X-Ray 04/10/23 08:36 IMPRESSION: Increased bilateral perihilar markings suggestive bilateral perihilar infiltrates. Electronically Signed: Kamaljit Lainez MD at 8:59 EST , EKG Initial EKG: Attestation: I personally reviewed and interpreted this EKG as follows: Interpretation: Sinus Bradycardia (Sinus bradycardia at 57 bpm. No acute ischemia.) Treatment and Re-Evaluation :: CBC was normal white count 4.6 with hemoglobin of 10.8. Platelet count is 106. Normal differential. Chemistry studies reveal a BUN of 29 and a creatinine of 1.26. BNP is normal at 27. EKG is sinus bradycardia with no acute ischemia. Chest x-ray per my interpretation reveals a questionable right perihilar infiltrate. Radiology feels there are bilateral perihilar infiltrates. Patient denies that he is having difficulty swallowing or aspirating. I will give him a dose of Levaquin and get blood cultures. Given his generalized weakness I will speak with hospitalist regarding observation for therapy. Discharge Plan Triage Chief Complaint: Shortness of Breath ED Provider: Aleida Sotomayor Dx/Rx/DC Orders Clinical Impression: Weakness, Pneumonia Prescriptions: No Action atorvastatin 80 MG tablet 80 mg PO QHS 0RF Patient Comments: cholesterol acetaminophen [Tylenol] 325 MG tablet 650 mg PO Q6H PRN PRN (Reason: Pain) Qty: 0 0RF loperamide 2 MG capsule 2 mg PO Q6H PRN PRN (Reason: DIARRHEA/LOOSE STOOLS) Qty: 0 0RF bisacodyl 10 MG suppository 10 mg RECTAL .PRN X 1 PRN (Reason: Constipation) Qty: 0 0RF loratadine [Allergy Relief (loratadine)] 10 MG tablet 10 mg PO DAILY 0RF alum-mag hydroxide-simeth [Mag-Al Plus Extra Strength] 30 ML suspension 15 ml PO Q6H PRN PRN (Reason: Indigestion) Qty: 0 0RF calcium carbonate-vitamin D3 [Oyster Shell Calcium-Vit D3] 1 TABLET tablet 1 tab PO BIDCM 0RF Patient Comments: supplement apixaban [Eliquis] 5 MG tablet 5 mg PO BID 0RF Patient Comments: blood thinner potassium chloride [Klor-Con M20] 20 MEQ tablet 10 meq PO DAILYCM lisinopril [Prinivil] 10 MG tablet 10 mg PO DAILY tamsulosin 0.4 MG capsule 0.4 mg PO DAILY baclofen 10 MG tablet 10 mg PO TID nortriptyline 10 MG capsule 20 mg PO QHS levetiracetam 750 MG tablet 750 mg PO BID Qty: 60 0RF Primary Care Provider: Eliud Belcher Referrals: Eliud Belcher MD [Primary Care Provider] - Disposition Disposition: Acute Care Hospital [facility]
[2023-04-10 08:51] LABS: Absolute Lymphocyte Count 0.95 X10^3/uL (0.83-4.51); Absolute Neutrophil Count 3.2 X10^3/uL (2.0-7.7); Basophil# 0.01 X10^3/uL; Basophil% 0.2 % (0-1); Eosinophil# 0.06 X10^3/uL; Eosinophils% 1.3 % (0-5); Hematocrit 35.1 % (40-54); Hemoglobin 10.8 g/dL (13.0-16.5); Lymphocyte # 0.95 X10^3/ul (0.83-4.51); Lymphocyte % 20.9 % (19-41); Mean Corp Hgb Conc 30.8 g/dL (32-36); Mean Corpuscular Hgb 27.8 pg (27.0-32.0); Mean Corpuscular Volume 90.2 fL (80-94); Mean Platelet Vol. 9.7 fl (6.2-12.0); Monocyte# 0.32 X10^3/uL; NRBC Flagged by Analyzer 0 % (0-5); Neutrophil # 3.18 X10^3/uL (2.7-7.7); Neutrophil % 69.9 % (47-70); Platelet Count 106 K/mm3 (150-450); RBC Distribution Width CV 17.2 % (11.6-14.6); RBC Distribution Width SD 54.2 fl (35.1-43.9); Red Blood Count 3.89 M/mm3 (4.6-6.2); White Blood Count 4.6 K/mm3 (4.4-11.0)
[2023-04-10 09:08] LABS: Anion Gap 4 (5-15); BUN 29 mg/dL (7-18); Calcium,Total 9.2 mg/dL (8.5-10.1); Chloride 112 mmol/L (98-107); Creatinine, Serum 1.26 mg/dL (0.70-1.30); EST Glomerular Filtration Rate 59 mL/min (>60); Est Glom Filt Rate - Afr Amer 71 mL/min (>60); Estimated Creatinine Clearance 62.06 ml/min; Glucose 93 mg/dL (74-106); Potassium 3.9 mmol/L (3.5-5.1); Sodium Level 146 mmol/L (136-145)
[2023-04-10 09:16] LABS: BNP,B-Type NATRIURETIC PEPTIDE 27.2 pg/mL (0-100)
--- NOTE | 2023-04-10 09:52 | NURSING ---
DR KUMAR FOR DR DUNCAN
--- NOTE | 2023-04-10 09:56 | NURSING ---
MED SURG OBS KUMAR WEAKNESS, PNEUMONIA
--- NOTE | 2023-04-10 10:11 | PCM.HP.STD ---
HPI - General General Date of Admission: 04/10/23 Date of Service: 04/10/23 Chief Complaint: Gen weakness HPI Narrative ASHLEY SANTANA, is a 77y/o male hx seizures, CVA, chronic AC, HTN who presented to [facility] 04/10/23 due to weakness after a fall. Has chronic left sided weakness but had fall last night when family was trying to get him into bed and ultimately was able to get to bed but this AM was too weak to get up so he was brought to ED. In ED pt has labs that appeared to suggest volume depletion with Cr 1.29 with baseline closer to 1, BUN elevated at 29 and Na 146 w/ Cl 112. Patient additionally had chest x-ray with increased bilateral markings suggestive of bilateral infiltrates. COVID, flu, RSV negative but patient had been reporting respiratory symptoms. Patient given Levaquin and hospitalist contacted for admission. Patient evaluated with at bedside, they report history as above but that the breathing complaints and congestion have been going on for up to a month, has difficulty actually coughing anything out but has a lot of congestion and rattling, denies any choking on his food however does note that he coughs after eating. Weakness has been mostly noted and that he has not been walking extra steps to get to bed and wants to be parked in his wheelchair right next to bed to just pivot but fell yesterday even with that. No known sick contacts or fever, no urinary complaints, has chronic left-sided weakness from stroke but no other focal complaints. [facility] Medical History (Updated 04/10/23 @ 10:[address] Kiarra Valdez MD) Cerebrovascular accident (CVA) Chronic anticoagulation Hypertension Seizure Home Medications acetaminophen 325 mg tablet (Tylenol) 650 mg (2 x 325 mg) PO Q6H PRN PRN Pain ##0 05/19/16 [Rx Last Taken Unknown] aluminum-mag hydroxide-simethicone 400 mg-400 mg-40 mg/5 mL oral susp (Mag-Al Plus Extra Strength) 15 ml PO Q6H PRN PRN Indigestion ##0 05/19/16 [Rx Last Taken Unknown] apixaban 5 mg tablet (Eliquis) 5 mg PO BID 05/19/16 [Rx Last Taken 06/20/17 08:00] atorvastatin 80 mg tablet 80 mg PO QHS 05/19/16 [Rx Last Taken 06/19/17 22:00] bisacodyl 10 mg rectal suppository 10 mg RECTAL .PRN X 1 PRN Constipation ##0 05/19/16 [Rx Last Taken Unknown] calcium carbonate 500 mg-vitamin D3 5 mcg (200 unit) tablet (Oyster Shell Calcium-Vitamin D3) 1 tab PO BIDCM 05/19/16 [Rx Last Taken 06/20/17 08:00] loperamide 2 mg capsule 2 mg PO Q6H PRN PRN DIARRHEA/LOOSE STOOLS ##0 05/19/16 [Rx Last Taken Unknown] loratadine 10 mg tablet (Allergy Relief (loratadine)) 10 mg PO DAILY 05/19/16 [Rx Last Taken Unknown] lisinopril 10 mg tablet (Prinivil) 10 mg PO DAILY BP 01/16/17 [History Last Taken 06/20/17 08:00] potassium chloride 20 mEq tablet,extended release(part/cryst) (Klor-Con M) 10 meq PO DAILYCM supplement 01/16/17 [History Last Taken 06/20/17 08:00] baclofen 10 mg tablet 10 mg PO TID muscle spasms 06/20/17 [History Last Taken 06/20/17 17:00] nortriptyline 10 mg capsule 20 mg PO QHS depression 06/20/17 [History Last Taken 06/19/17 22:00] tamsulosin 0.4 mg capsule 0.4 mg PO DAILY urinary retention 06/20/17 [History Last Taken 06/19/17 22:00] levetiracetam 750 mg tablet 750 mg PO BID #60 tabs 06/22/17 [Rx Last Taken Unknown] Allergy/AdvReac Type Severity Reaction Status Date / Time No Known Allergies Allergy Verified 04/10/23 08:19 Social History Smoking Status: Former smoker ROS ROS Narrative General: Denies fever/chills HENT: Denies headache, denies stuffy nose, denies sore throat EYES: Denies changes in vision Resp: Cough with rattling and did have some increased shortness of breath Cardiac: Denies chest pain GI: Denies abdominal pain, denies changes in bowel, denies nausea/vomiting : Denies changes in urination Extremity: Has little bit of swelling in lower extremities MSK: Diffuse weakness on top of chronic deficits Neuro: Chronic left-sided deficits Heme: Easy bruising Skin: Denies rashes Psychiatric: No complaints voiced Vital Signs Vital Signs Vital Signs: 04/10/23 08:20 04/10/23 08:25 04/10/23 09:25 Temperature 95.8 F L Temperature Source Temporal Pulse Rate 58 L 56 L Respiratory Rate 18 15 Respiratory Effort Short of Breath Respiratory Depth Normal Respiratory Pattern Normal Blood Pressure 119/79 131/69 H Blood Pressure Mean 92 89 Pulse Ox 94 98 Oxygen Delivery Method Room Air Room Air Room Air Weight Weight: 124.7 kg Body Mass Index (BMI) 40.6 Physical Exam Narrative General: Alert, no apparent distress HEENT: Atraumatic Eyes: Anicteric, normal conjunctiva, extraocular movements grossly intact Neck: Supple Respiratory: Coarse and diffusely transmitted upper airway sounds Cardiovascular: Regular rate GI: Soft, nontender, nondistended Extremities: 1+ lower extremity edema Musculoskeletal: Moving all extremities Neuro: Generalized weakness with left upper extremity contraction, left extremity weaker compared to right and left-sided facial droop Skin: Diffuse bruising Psych: Cooperative Results Lab / Micro Data 04/10/23 08:45 04/10/23 08:45 Labs: Laboratory Results - last 24 hr 04/10/23 08:45: WBC 4.6, RBC 3.89 L, Hgb 10.8 L, Hct 35.1 L, MCV 90.2, MCH 27.8, MCHC 30.8 L, RDW Std Deviation 54.2 H, RDW Coeff of Ernst 17.2 H, Plt Count 106 L, MPV 9.7, Immature Gran % (Auto) 0.700, Neut % (Auto) 69.9, Lymph % (Auto) 20.9, [place] % (Auto) 7.0, Eos % (Auto) 1.3, Baso % (Auto) 0.2, Absolute Neuts (auto) 3.2, Absolute Lymphs (auto) 0.95, Nucleated RBC % 0, Sodium 146 H, Potassium 3.9, Chloride 112 H, Carbon Dioxide 30.0, Anion Gap 4 L, BUN 29 H, Creatinine 1.26, Estim Creat Clear Calc 62.06, Est GFR (MDRD) Af Amer 71, Est GFR (MDRD) Non-Af 59 L, BUN/Creatinine Ratio 23.0 H, Glucose 93, Calcium 9.2, B-Natriuretic Peptide 27.2 Micro: Microbiology 04/10/23 08:45 Mucosa - Nose SARS-CoV-2, Influenza & RSV (PCR) - Final Imagaing Radiology Impression Brain CT 04/10/23 08:36 IMPRESSION: Large area of encephalomalacia involving the right frontal temporal parietal lobes with compensatory enlargement of the right lateral ventricle. Sinusitis. Electronically Signed: Kamaljit Lainez MD at 9:25 EST , Cervical Spine CT 04/10/23 08:36 IMPRESSION: Multilevel degenerative changes, as described above. Electronically Signed: Kamaljit Lainez MD at 9:28 EST , Chest X-Ray 04/10/23 08:36 IMPRESSION: Increased bilateral perihilar markings suggestive bilateral perihilar infiltrates. Electronically Signed: Kamaljit Lainez MD at 8:59 EST , Assessment & Plan Assessment/Plan (1) Pneumonia: (2) Weakness: (3) Elevated serum creatinine: (4) BPH (benign prostatic hyperplasia): (5) Morbid obesity with BMI of 40.0-44.9, adult: PLAN: Plan # Pneumonia -Community-acquired versus aspiration -Imaging: Chest x-ray suggestive of infiltrates -DuoNebs and as needed albuterol -Sputum culture, COVID and flu, respiratory panel -Urine antigens -Mucinex, I/S -Rocephin and azithromycin -Consult speech # Concern for dehydration -Gentle IV fluids #Generalized weakness and falls -Treat underlying illness -PT/OT -CM/SW -CT head and cervical spine without acute process -No urinary symptoms and other explanation for weakness and sx so UA not checked # Seizure disorder -Continue Keppra # History of CVA with residual left-sided weakness -Continue home medications # Chronic BPH with obstruction -Chronically on tamsulosin, will continue #Morbid obesity -BMI 40.6 kg/m? -Complicates treatment, prognosis, outcomes -Recommend weight loss and lifestyle changes #DVT ppx: Davy Valdez MD Time spent in the patient's overall evaluation,decision-making process, review of diagnostic data, adjustment of management, discussion with other providers, nursing nursing and ancillary staff involved in patient's care documentation, 55 minutes Charges/Coding Visit Charges Inpatient E&M: 47258 Init Hosp L2
[2023-04-10] MEDS: levoFLOXacin IV 750 MG/150 ML BAG 100 MG IV (10:16)
[2023-04-10] MEDS: Ipratropium/Albuterol Sulfate 3 ML AMPUL.NEB INHALATION ×2 (11:35→20:18)
[2023-04-10] MEDS: APIXABAN 5 MG TABLET PO ×2 (12:48→22:57)
[2023-04-10] MEDS: 0.9% Normal Saline (1000mL) 1,000 ML 50 ML IV (12:48)
[2023-04-10] MEDS: Tamsulosin HCl 0.4 MG Capsule 0.400000000000000022 MG PO (18:12)
[2023-04-10] MEDS: guaiFENesin 1,200 MG Tablet 1200 MG PO (22:57)
[2023-04-10] MEDS: Atorvastatin Calcium 80 MG Tablet 40 MG PO (22:57)
[2023-04-10] MEDS: levETIRAcetam 500 MG Tablet PO (22:59)
[2023-04-10] MEDS: Azithromycin 500 MG in Dextrose 5%-Water (250mL Bag) 250 ML 250 MG IV (23:20)
[2023-04-11] VITALS (16 sets, daily range): BP systolic 99–115; BP diastolic 33–68; PULSE 64–92; RESP 12–24; TEMP 36.2–37.2; O2SAT 85–96
[2023-04-11] MEDS: Ceftriaxone 2 GM in 0.9% Normal Saline (50mL MB+) 50 ML IV (00:49)
[2023-04-11] MEDS: Ipratropium/Albuterol Sulfate 3 ML AMPUL.NEB INHALATION ×3 (02:22→18:49)
[2023-04-11 06:30] LABS: Absolute Lymphocyte Count 0.74 X10^3/uL (0.83-4.51); Absolute Neutrophil Count 2.3 X10^3/uL (2.0-7.7); Basophil# 0.01 X10^3/uL; Basophil% 0.3 % (0-1); Eosinophil# 0.04 X10^3/uL; Eosinophils% 1.2 % (0-5); Hematocrit 31.2 % (40-54); Hemoglobin 9.8 g/dL (13.0-16.5); Lymphocyte # 0.74 X10^3/ul (0.83-4.51); Lymphocyte % 21.8 % (19-41); Mean Corp Hgb Conc 31.4 g/dL (32-36); Mean Corpuscular Hgb 28.6 pg (27.0-32.0); Mean Platelet Vol. 9.8 fl (6.2-12.0); Monocyte# 0.29 X10^3/uL; Monocyte% 8.6 % (0-10); NRBC Flagged by Analyzer 0 % (0-5); Neutrophil # 2.29 X10^3/uL (2.7-7.7); Neutrophil % 67.5 % (47-70); POSITIVE COUNT YES; Platelet Count 89 K/mm3 (150-450); RBC Distribution Width CV 17.9 % (11.6-14.6); RBC Distribution Width SD 57.4 fl (35.1-43.9); Red Blood Count 3.43 M/mm3 (4.6-6.2); White Blood Count 3.4 K/mm3 (4.4-11.0)
[2023-04-11 06:57] LABS: Anion Gap 3 (5-15); BUN 27 mg/dL (7-18); BUN/Creat Ratio 21.1 RATIO (10-20); Calcium,Total 8.4 mg/dL (8.5-10.1); Chloride 116 mmol/L (98-107); Creatinine, Serum 1.28 mg/dL (0.70-1.30); EST Glomerular Filtration Rate 58 mL/min (>60); Est Glom Filt Rate - Afr Amer 70 mL/min (>60); Estimated Creatinine Clearance 55.41 ml/min; Glucose 93 mg/dL (74-106); Potassium 4.4 mmol/L (3.5-5.1); Sodium Level 147 mmol/L (136-145)
--- NOTE | 2023-04-11 07:25 | PN.HOSP_ITS ---
Reason for Visit Reason for Visit: Diagnoses Morbid (severe) obesity due to excess calories (04/10/23) Pneumonia, unspecified organism (04/10/23) Benign prostatic hyperplasia without lower urinary tract symptoms (04/10/23) Weakness (04/10/23) Other specified abnormal findings of blood chemistry (04/10/23) Body mass index [BMI] 40.0-44.9, adult (04/10/23) Subjective Subjective Patient sitting up in bed currently being fed breakfast, still has cough and congestion but denying any overt shortness of breath, still generally weak Objective Data Objective Data Vital Signs: Vital Signs Temp Pulse Resp BP Pulse Ox O2 Del Method FiO2 97.2 F L 65 20 H 115/68 92 Bi-pap 21 04/11/23 04:38 04/11/23 04:38 04/11/23 04:38 04/11/23 04:38 04/11/23 06:46 04/11/23 06:46 04/10/23 16:35 Oxygen Delivery Method Bi-pap Weight: 117.055 kg Body Mass Index (BMI) 42.9 Intake & Output: Intake and Output for Last 24 Hours 04/09/23 04/10/23 04/11/23 23:59 23:59 23:59 Intake Total 1072.5 / 1072.5 305 / 305 Output Total 250 / 250 Balance 822.5 / 822.5 305 / 305 Lab / Micro Data 04/11/23 06:05 04/11/23 06:05 Labs: Laboratory Results - last 24 hr 04/10/23 08:45: WBC 4.6, RBC 3.89 L, Hgb 10.8 L, Hct 35.1 L, MCV 90.2, MCH 27.8, MCHC 30.8 L, RDW Std Deviation 54.2 H, RDW Coeff of Ernst 17.2 H, Plt Count 106 L, MPV 9.7, Immature Gran % (Auto) 0.700, Neut % (Auto) 69.9, Lymph % (Auto) 20.9, [place] % (Auto) 7.0, Eos % (Auto) 1.3, Baso % (Auto) 0.2, Absolute Neuts (auto) 3.2, Absolute Lymphs (auto) 0.95, Nucleated RBC % 0, Sodium 146 H, Potassium 3.9, Chloride 112 H, Carbon Dioxide 30.0, Anion Gap 4 L, BUN 29 H, Creatinine 1.26, Estim Creat Clear Calc 62.06, Est GFR (MDRD) Af Amer 71, Est GFR (MDRD) Non-Af 59 L, BUN/Creatinine Ratio 23.0 H, Glucose 93, Calcium 9.2, B-Natriuretic Peptide 27.2 04/11/23 06:05: WBC 3.4 L, RBC 3.43 L, Hgb 9.8 L, Hct 31.2 L, MCV 91.0, MCH 28.6, MCHC 31.4 L, RDW Std Deviation 57.4 H, RDW Coeff of Ernst 17.9 H, Plt Count 89 L, MPV 9.8, Immature Gran % (Auto) 0.600, Neut % (Auto) 67.5, Lymph % (Auto) 21.8, [place] % (Auto) 8.6, Eos % (Auto) 1.2, Baso % (Auto) 0.3, Absolute Neuts (auto) 2.3, Absolute Lymphs (auto) 0.74 L, Nucleated RBC % 0, Sodium 147 H, Potassium 4.4, Chloride 116 H, Carbon Dioxide 28.0, Anion Gap 3 L, BUN 27 H, Creatinine 1.28, Estim Creat Clear Calc 55.41, Est GFR (MDRD) Af Amer 70, Est GFR (MDRD) Non-Af 58 L, BUN/Creatinine Ratio 21.1 H, Glucose 93, Calcium 8.4 L Micro: Microbiology 04/10/23 18:17 Urine, Random Legionella Antigen - Final 04/10/23 18:17 Urine, Random Streptococcus pneumoniae Antigen (M - Final 04/10/23 11:37 Mucosa - Nasopharyngeal Respiratory Panel (PCR) - Final 04/10/23 08:45 Mucosa - Nose SARS-CoV-2, Influenza & RSV (PCR) - Final Radiography Diagnostic Testing: Radiology Impression Brain CT 04/10/23 08:36 IMPRESSION: Large area of encephalomalacia involving the right frontal temporal parietal lobes with compensatory enlargement of the right lateral ventricle. Sinusitis. Electronically Signed: Kamaljit Lainez MD at 9:25 EST , Cervical Spine CT 04/10/23 08:36 IMPRESSION: Multilevel degenerative changes, as described above. Electronically Signed: Kamaljit Lainez MD at 9:28 EST , Chest X-Ray 04/10/23 08:36 IMPRESSION: Increased bilateral perihilar markings suggestive bilateral perihilar infiltrates. Electronically Signed: Kamaljit Lainez MD at 8:59 EST , Physical Exam Narrative General: Alert, no apparent distress HEENT: Atraumatic Eyes: Anicteric, normal conjunctiva, extraocular movements grossly intact Neck: Supple Respiratory: Coarse with transmitted upper airway sounds Cardiovascular: Regular rate GI: Soft, nontender, nondistended Extremities: 1+ lower extremity edema Musculoskeletal: Moving all extremities Neuro: Generalized weakness with left upper extremity contraction, left extremity weaker compared to right and left-sided facial droop Skin: Diffuse bruising Psych: Cooperative Assessment & Plan Assessment/Plan (1) Pneumonia: (2) Weakness: (3) Elevated serum creatinine: (4) BPH (benign prostatic hyperplasia): (5) Morbid obesity with BMI of 40.0-44.9, adult: PLAN: Plan #?Pneumonia -Community-acquired versus aspiration -Imaging: Chest x-ray suggestive of infiltrates -DuoNebs and as needed albuterol -Sputum culture, COVID and flu, respiratory panel -Urine antigens -Mucinex, I/S -Rocephin and azithromycin -Consult speech -04/11: Speech evaluated, swallowing study with mild dysphagia, compensatory strategies recommended by speech and reviewed, Legionella and strep pneumo negative, COVID and respiratory panels negative, patient on Rocephin and azithromycin, continue nebs and Mucinex. Patient and family requesting pulmonary consult, pulm consult placed per their request and it was advised to transition antibiotics to Unasyn with Augmentin at discharge for 7 days total therapy and to follow-up with pulmonology on outpatient basis # Concern for dehydration -Gentle IV fluids -04/11: Status post fluids, kidney function stable #Pancytopenia -Unclear etiology, all cell lines down slightly after fluids, may need outpatient follow-up if counts do not recover after acute illness #Generalized weakness and falls -Treat underlying illness -PT/OT -CM/SW -CT head and cervical spine without acute process -No urinary symptoms and other explanation for weakness and sx so UA not checked -04/11: Continue to treat underlying problem, PT/OT, confounded by patient's chronic left-sided deficits # Seizure disorder -Continue Keppra # History of CVA with residual left-sided weakness -Continue home medications # Chronic BPH with obstruction -Chronically on tamsulosin, will continue #Morbid obesity -BMI 40.6 kg/m? -Complicates treatment, prognosis, outcomes -Recommend weight loss and lifestyle changes #DVT ppx: Davy Valdez MD Time spent in the patient's overall evaluation,decision-making process, review of diagnostic data, adjustment of management, discussion with other providers, nursing nursing and ancillary staff involved in patient's care documentation, 35 minutes Capacity Legal [employer] Reflex Medical hold order details:: IF a medical hold is selected below, a suggested order for a MEDICAL HOLD will reflex upon signing the document. Next of kin: [place] law dictates a PRIORITY LIST for identifying legal decision-maker/legal next of kin in the following order (LNOK): 1st: The patient?s legal guardian, if any 2nd: The patient's spouse (if status is questionable, consult Risk Management) 3rd: The patient?s adult child(casey) (majority, if multiple children) 4th: The patient?s parents 5th: The patient?s adult siblings (majority, if multiple children siblings) Charges/Coding Visit Charges Inpatient E&M: 22187 Subs Hosp L2
--- NOTE | 2023-04-11 08:02 | CON.PCM.CC_ITS ---
Assessment & Plan Assessment/Plan (1) Pneumonia: PLAN: Plan RECOMMENDATIONS: 1. Transition antibiotics to Unasyn. At discharge, Augmentin would be a reasonable choice to complete 7 days of therapy. 2. MBBS with dietary advancement per speech therapy. 3. Continue nocturnal PAP therapy per home regimen. 4. Encourage incentive spirometer use and mobilize patient as tolerated. 5. Outpatient pulmonary follow-up after discharge, if symptoms persist. IMPRESSIONS: 1. Shortness of breath and cough The patient presented to the hospital with generalized weakness, fall and a history of 1 month of mild dyspnea and cough, with concern for underlying dysphagia and potential aspiration pneumonia. The patient is clinically stable from a respiratory perspective and maintaining appropriate oxygen saturations on room air. He has no pre-existing pulmonary conditions, including asthma or COPD. Speech therapy is currently following with tentative plans for a modified barium swallow. In light of the concerns for aspiration pneumonia, recommend transitioning the patient to Unasyn. The patient also has evidence of sinusitis on CT imaging of the head, which also could contribute to his cough. Therefore, at discharge, Augmentin would be a reasonable antibiotic to complete his treatment course. The patient can follow-up in the pulmonary medicine clinic after discharge if he continues to have residual symptoms. 2. History of obstructive sleep apnea Continue nocturnal PAP therapy per home regimen. 3. History of CVA/unspecified seizure disorder/generalized weakness/BPH/obesity Complicates care, management, recovery and prognosis. Continue home medications along with supportive care as noted above. This note was generated with [employer] dictation software. It may contain incorrect words, spelling, and punctuation that were not noted in checking the note before signing. HPI Consult Data Date of Consult: 04/11/23 HPI Narrative Reason for Consultation: Pneumonia with cough HPI Narrative: The patient is a 77-year-old male, with a history as outlined below, who presented to the emergency department on April 10 with generalized weakness and fall. The patient has a history of seizures and prior CVA along with hypertension. He has chronic left-sided weakness and apparently fell the night prior to his hospitalization and was too weak to get up. The patient had been experiencing some mild shortness of breath and cough over the preceding months. There has been concern that his cough is worsened after ingestion of food, raising the possibility for aspiration. The patient denied a prior history of COPD or asthma. He does not utilize supplemental oxygen or inhalers at his baseline. He does have a prior tobacco abuse history, having quit completely 30 years ago. He does have a known history of underlying sleep apnea, for which he utilizes nocturnal PAP therapy. On presentation to the emergency department, the patient was noted to be afebrile hemodynamically stable. He was maintaining appropriate oxygen saturations on room air. White count was within normal limits. The patient does have baseline anemia along with thrombocytopenia with a presenting platelet count of 106,000. Chemistry profile was notable for a sodium of 146, chloride of 112 and creatinine of 1.26. BNP was normal. Rapid flu, RSV and COVID were negative. Respiratory viral panel was negative. Blood cultures were collected. CT head revealed a large area of encephalomalacia involving the right frontal temporal parietal lobes with compensatory enlargement of the right lateral ventricle along with evidence of sinusitis. Chest x-ray demonstrated bilateral perihilar infiltrates. The patient was subsequently admitted to the medical surgical floor and placed on antibiotics. He has remained stable from a respiratory perspective. The patient was evaluated by speech therapy on April 10, with recommendations to proceed with MBSS. He remains on a modified diet. [facility] Medical History (Updated 04/10/23 @ 10:[address] Kiarra Valdez MD) Cerebrovascular accident (CVA) Chronic anticoagulation Hypertension Seizure Home Medications acetaminophen 325 mg tablet (Tylenol) 650 mg (2 x 325 mg) PO Q6H PRN PRN Pain ##0 05/19/16 [Rx Last Taken Unknown] aluminum-mag hydroxide-simethicone 400 mg-400 mg-40 mg/5 mL oral susp (Mag-Al Plus Extra Strength) 15 ml PO Q6H PRN PRN Indigestion ##0 05/19/16 [Rx Last Taken Unknown] apixaban 5 mg tablet (Eliquis) 5 mg PO BID 05/19/16 [Rx Last Taken 04/09/23] bisacodyl 10 mg rectal suppository 10 mg RECTAL .PRN X 1 PRN Constipation ##0 05/19/16 [Rx Last Taken Unknown] calcium carbonate 500 mg-vitamin D3 5 mcg (200 unit) tablet (Oyster Shell Calcium-Vitamin D3) 1 tab PO BIDCM 05/19/16 [Rx Last Taken 06/20/17 08:00] loperamide 2 mg capsule 2 mg PO Q6H PRN PRN DIARRHEA/LOOSE STOOLS ##0 05/19/16 [Rx Last Taken Unknown] loratadine 10 mg tablet (Allergy Relief (loratadine)) 10 mg PO DAILY 05/19/16 [Rx Last Taken Unknown] lisinopril 10 mg tablet (Prinivil) 10 mg PO DAILY BP 01/16/17 [History Last Taken 04/09/23] potassium chloride 20 mEq tablet,extended release(part/cryst) (Klor-Con M) 10 meq PO DAILYCM supplement 01/16/17 [History Last Taken 06/20/17 08:00] baclofen 10 mg tablet 10 mg PO TID muscle spasms 06/20/17 [History Last Taken 06/20/17 17:00] nortriptyline 10 mg capsule 20 mg PO QHS depression 06/20/17 [History Last Taken 06/19/17 22:00] tamsulosin 0.4 mg capsule 0.4 mg PO DAILY urinary retention 06/20/17 [History Last Taken 04/09/23] atorvastatin 80 mg tablet 40 mg PO QHS 04/10/23 [History Last Taken 04/09/23] levetiracetam 750 mg tablet 500 mg PO BID 04/10/23 [History Last Taken 04/09/23] losartan 25 mg tablet mg PO DAILY 04/10/23 [History Last Taken 04/09/23] Allergy/AdvReac Type Severity Reaction Status Date / Time No Known Allergies Allergy Verified 04/10/23 08:19 Social History Smoking Status: Former smoker ROS ROS Narrative 10 systems were reviewed with pertinent positives as noted in the HPI above. Physical Exam Const alert and no apparent distress General Appearance: cooperative HEENT normocephalic and head/scalp atraumatic Eyes PERRL, EOMs intact bilaterally and conjunctivae normal Neck supple General: trachea midline Chest inspection of chest normal Resp normal respiratory effort Resp Narrative: Scant rhonchi which clears with coughing Cardio regular rate and regular rhythm GI normal to inspection, nondistended, normoactive bowel sounds Extremity General Extremity: edema bilateral lower extremity; Negative for clubbing Skin no rashes or lesions noted Neuro Neuro Narrative: Residual left-sided weakness with facial droop Psych cooperative and affect normal Lab / Micro Data 04/11/23 06:05 04/11/23 06:05 Labs: Laboratory Results - last 24 hr 04/10/23 08:45: WBC 4.6, RBC 3.89 L, Hgb 10.8 L, Hct 35.1 L, MCV 90.2, MCH 27.8, MCHC 30.8 L, RDW Std Deviation 54.2 H, RDW Coeff of Ernst 17.2 H, Plt Count 106 L, MPV 9.7, Immature Gran % (Auto) 0.700, Neut % (Auto) 69.9, Lymph % (Auto) 20.9, [place] % (Auto) 7.0, Eos % (Auto) 1.3, Baso % (Auto) 0.2, Absolute Neuts (auto) 3.2, Absolute Lymphs (auto) 0.95, Nucleated RBC % 0, Sodium 146 H, Potassium 3.9 , Chloride 112 H, Carbon Dioxide 30.0, Anion Gap 4 L, BUN 29 H, Creatinine 1.26, Estim Creat Clear Calc 62.06, Est GFR (MDRD) Af Amer 71, Est GFR (MDRD) Non-Af 59 L, BUN/Creatinine Ratio 23.0 H, Glucose 93, Calcium 9.2, B-Natriuretic Peptide 27.2 04/11/23 06:05: WBC 3.4 L, RBC 3.43 L, Hgb 9.8 L, Hct 31.2 L, MCV 91.0, MCH 28.6, MCHC 31.4 L, RDW Std Deviation 57.4 H, RDW Coeff of Ernst 17.9 H, Plt Count 89 L, MPV 9.8, Immature Gran % (Auto) 0.600, Neut % (Auto) 67.5, Lymph % (Auto) 21.8, [place] % (Auto) 8.6, Eos % (Auto) 1.2, Baso % (Auto) 0.3, Absolute Neuts (auto) 2.3, Absolute Lymphs (auto) 0.74 L, Nucleated RBC % 0, Sodium 147 H, Potassium 4.4, Chloride 116 H, Carbon Dioxide 28.0, Anion Gap 3 L, BUN 27 H, Creatinine 1.28, Estim Creat Clear Calc 55.41, Est GFR (MDRD) Af Amer 70, Est GFR (MDRD) Non-Af 58 L, BUN/Creatinine Ratio 21.1 H, Glucose 93, Calcium 8.4 L Micro: Microbiology 04/10/23 18:17 Urine, Random Legionella Antigen - Final 04/10/23 18:17 Urine, Random Streptococcus pneumoniae Antigen (M - Final 04/10/23 11:37 Mucosa - Nasopharyngeal Respiratory Panel (PCR) - Final 04/10/23 08:45 Mucosa - Nose SARS-CoV-2, Influenza & RSV (PCR) - Final Imagaing Radiology Impression Brain CT 04/10/23 08:36 IMPRESSION: Large area of encephalomalacia involving the right frontal temporal parietal lobes with compensatory enlargement of the right lateral ventricle. Sinusitis. Electronically Signed: Kamaljit Lainez MD at 9:25 EST , Cervical Spine CT 04/10/23 08:36 IMPRESSION: Multilevel degenerative changes, as described above. Electronically Signed: Kamaljit Lainez MD at 9:28 EST , Chest X-Ray 04/10/23 08:36 IMPRESSION: Increased bilateral perihilar markings suggestive bilateral perihilar infiltrates. Electronically Signed: Kamaljit Lainez MD at 8:59 EST , Capacity Legal Steward/Stewardess Dining Room Reflex Medical hold order details:: IF a medical hold is selected below, a suggested order for a MEDICAL HOLD will reflex upon signing the document. Next of kin: [place] law dictates a PRIORITY LIST for identifying legal decision-maker/legal next of kin in the following order (LNOK): 1st: The patient?s legal guardian, if any 2nd: The patient's spouse (if status is questionable, consult Risk Management) 3rd: The patient?s adult child(casey) (majority, if multiple children) 4th: The patient?s parents 5th: The patient?s adult siblings (majority, if multiple children siblings) Charges/Coding Visit Charges Inpatient E&M: 72557 Init Hosp L3
[2023-04-11] MEDS: levETIRAcetam 500 MG Tablet PO ×2 (09:20→21:35)
[2023-04-11] MEDS: 0.9% Saline Lock 10 ML Syringe IV ×2 (09:20→11:34)
[2023-04-11] MEDS: APIXABAN 5 MG TABLET PO ×2 (09:21→21:34)
[2023-04-11] MEDS: guaiFENesin 1,200 MG Tablet 1200 MG PO ×2 (09:21→21:35)
[2023-04-11] MEDS: Miconazole Nitrate 43 GM Bottle 1 APPLIC TOPICAL ×2 (09:24→21:31)
--- NOTE | 2023-04-11 10:34 | SP.MBSS_ITS ---
Modified Barium Swallow Patient Information Study Date: 04/11/23 Study Time: 09:36 Direct Billable Minutes: 73 Total Minutes procedure & reportin Diagnosis: PNA J18.9 Referring Physician: Kiarra Valdez Reason for Referral: Objectively assess swallow function, assess risk for aspiration, and determine recommendations for least restrictive diet textures and compensatory strategies to improve safety of swallow. Medical History: PMH: hx seizures, CVA, chronic AC, HTN. He presented to [facility] 04/10/2023 due to weakness after a fall. Has chronic left sided weakness from CVA ~8 years ago but had fall last night when family was trying to get him into bed. In the AM he was too weak to get up so he was brought to ED. Patient had chest x-ray with increased bilateral markings suggestive of bilateral infiltrates. COVID, flu, RSV negative but patient had been reporting respiratory symptoms including congestion and rattling for the past month. Patient given Levaquin and hospitalist contacted for admission. Patient was evaluated by INSULATION BOARD COATER OPERATOR with at bedside 04/10/2023 after RN made him NPO for choking when eating a wrap at lunch. Patient and deny choking on food at home, but reported he coughs after he eats. During BSE with INSULATION BOARD COATER OPERATOR, he was recommended regular textures / thin liquids with direct supervision and plans for MBSS 04/11/2023. Current Diet Ordered: Regular textures / Thin liquids Dentition: WNL and Natural Teeth Mental Status: WNL Respiratory Status: Oxygenating on Room Air Penetration-Aspiration Scale Penetration-Aspiration Scale: OBJECTIVE ASSESSMENT OF SWALLOW FUNCTION (QUANTITATIVE ? PER TRIAL): PENETRATION / ASPIRATION SCALE (UMAAN): 1 = does not enter airway 2 = enters airway/above vocal folds/ejected 3 = enters airway/above vocal folds/not ejected 4 = enters airway/contacts vocal folds/ejected 5 = enters airway/contacts vocal folds/not ejected 6 = enters airway/below vocal folds/ejected 7 = enters airway/below vocal folds/not ejected despite effort 8 = enters airway/below vocal folds/no effort VIDEOFLOROSCOPIC SCALE SCORE (UMANA): Grade I = aspiration of material that has penetrated into the laryngeal vestibule, intact cough reflex Grade II = aspiration < 10 % of the bolus, intact cough reflex Grade III = aspiration of < 10 % of the bolus, reduced cough reflex or aspiration of > 10 % of the bolus, intact cough reflex Grade IV = aspiration of > 10 % of the bolus, reduced cough reflex Penetration-Aspiration Scale Score Thin Liquid via teaspoon: Result: 1= does not enter airway Thin Liquid via teaspoon Trial 2: Result: 1= does not enter airway Thin Liquid via small single sip: cup: Result: 1= does not enter airway Thin Liquid via sequential sips: cup: Result: 2= enter airway/above vocal folds/ejected (trace) [place] Thick Liquid via small single sip: cup: Result: 1= does not enter airway Pudding via teaspoon: Result: 1= does not enter airway 1/2 Cookie: Result: 1= does not enter airway Thin Liquid via sequential sips:straw: Result: 1= does not enter airway Oral Phase Labial Seal: Escape progressing to mid-chin Tongue Control During Bolus Hold: Posterior escape of greater than half of bolus Bolus Preparation/Mastication: Timely and efficient chewing and mashing Bolus Transport/Lingual Motion: Repetitive/disorganized tongue motion Oral Residue: Residue collection on oral structures Pharyngeal Phase Initiation of Pharyngeal Swallow: Bolus head in pyriforms Soft Palate Elevation: Trace column of contrast/air between soft palate and pharyngeal wall Laryngeal Elevation: Comp. Superior move thyroid cart w/comp. apprx arytenoid cart-epig pet Anterior Hyoid Excursion: Partial anterior movement Epiglottic Movement: Complete inversion Laryngeal Vestibule Closure at Height of Swallow: Incomplete; narrow column of air/contrast in laryngeal vestibule (trace) Pharyngeal Stripping Wave: Present - complete Pharyngoesophageal Segment Opening: Complete distension and complete duration; no obstruction of flow Tongue Base Retraction: Narrow column of contrast between tongue base & post. pharyngeal wall (sequential thin) Pharyngeal Residue: Trace residue within or on pharyngeal structures Diagnosis/Impression Diagnosis: Mild oropharyngeal dysphagia R13.12 Impression: Cannot definitively rule out aspiration for all the above trials due to patient's body habitus. The vocal folds and trachea were only in view during the swallow. The oral phase is primarily marked by... -Decreased bolus control with >1/2 of the bolus spilling posteriorly to the pyriforms prior to swallow onset observed with sequential sips of thin liquids. -Decreased bolus control and disorganized tongue motion with loss of pudding to FOM twice prior to successful A-P transport. -Decreased labial seal with drooling of barium on L side to mid chin after the study was completed. The pharyngeal phase is primarily marked by... -Mildly decreased anterior hyoid excursion; however, complete laryngeal elevation. Trace laryngeal penetration 1X with full ejection. No aspiration observed despite coughing after sequential sips of thin liquids (laryngeal vestibule appeared clear of contrast). -Mildly decreased tongue base retraction; however, only trace pharyngeal residues were present. - Delayed swallow onset most notable with sequential sips of thin liquids. Esophageal screen not completed due to patient's body habitus. Recommendations Diet: Regular Textures and Thin Liquids Compensatory Strategies: Small Bites (chew thoroughly), Small Sips, Slow Rate, Alternate bites/solids and sips/liquids, Sitting upright and Remain sitting upright for 30 minutes after PO intake Recommend Repeat Modified Barium Swallow: No (Repeat only if worsening s/s of aspiration.) Need for Skilled Speech Therapy Services: Yes Comment: -Train the patient in use of strategies to decrease risk for aspiration. -Ongoing assessment of diet tolerance of recommended textures. -Train the patient oral motor and oropharyngeal exercise program to improve lingual strength/coordination, labial strength, swallow onset, and tongue base retraction (lingual resistance, lingual coordination, Nicolasa Ramos). Education Completed: 1. Described result of evaluation., 2. Pt understands evaluation & agrees with goals and treatment plan. and 7. Pt requires further education on strategies & risks. Status Active ST Patient: Active Contact Information [facility] Speech Therapy:: Shyanne Engel M.A. [facility]-INSULATION BOARD COATER OPERATOR Speech-Language Pathologist [facility] [address] [place] [address] [email or web address] [phone]
[2023-04-11] MEDS: Ampicillin/Sulbactam 3 GM in 0.9% Normal Saline (100mL MB+) 100 ML IV ×2 (11:34→19:02)
--- NOTE | 2023-04-11 11:48 | CASEMGMT ---
Met with patient and his to complete EDMONDS form. EDMONDS form explained to both who voiced understanding. Patient asked that his sign form. Original form placed in pt?s chart and copy provided to patient. Sofia Armas, Discharge Planning Asst
--- NOTE | 2023-04-11 14:12 | CASEMGMT ---
Social Work Both living will and healthcare POA both [facility], Valerie Adrian is listed as healthcare POA. NAVARRO Ortega
--- NOTE | 2023-04-11 16:19 | CASEMGMT ---
SANDRA QUISPE into pt room, pt dtr and present. Introduced self and role and discussed dc planning. Pt currently needing assist x2 with therapy. Pt and dtr states they had a bad experience at [facility]. Pt has also been to [facility] in the past and had [facility] in the past. Pt dtr adamant that pt will not go to a senior care. Discussed pt being able to assist pt and dtr states she will commit to being there to assist pt with other family members to keep pt at home. Pt lives in a 1 story home with a ramp to enter with his . DME: [employer], w/c and 4 prong cane, pox, CPAP. Pt has been mostly using the w/c recently. He has been able to stand to pivot into w/c and stand to urinate. Pt assists with bathing and dressing and other household tasks. Pt transports pt to medical appts. Pt and family agreeable to having HHC SN, PT, OT and ST at home through [facility] as they have had in the past. They decline need for list of other options of agencies. Pt and family aware that SANDRA QUISPE will follow therapy tomorrow as well for recommendations.
[2023-04-11] MEDS: Tamsulosin HCl 0.4 MG Capsule 0.400000000000000022 MG PO (18:55)
--- NOTE | 2023-04-11 20:45 | RAD_ITS ---
STUDY: X-RAY CHEST REASON FOR EXAM: Male, 77 years old. chf TECHNIQUE: Single AP portable view of the chest. COMPARISON: 04/10/2023. FINDINGS: Exam is limited due to motion artifact and decreased inspiration. The lungs are underexpanded with vascular crowding. There is mild right infrahilar and left basilar atelectasis. Remainder of the lung mayes are clear. There is no demonstrated pleural abnormality. Normal size heart. Normal mediastinum and barbara. Normal visualized pulmonary arteries. There is atherosclerotic calcification of the aortic arch with tortuosity. There are diffuse degenerative changes of the visualized thoracic spine. Normal visualized ribs, clavicles, and shoulders. Contrast within the stomach noted. RAD/Chest 1 View (Portable) IMPRESSION: Bilateral atelectasis, otherwise no acute cardiopulmonary disease. Electronically Signed: Gale Lima MD at 21:18 EST ,
[2023-04-11 21:13] LABS: Allen Test Positive; Base Excess 4 mmol/L (-2 to +2); Bicarbonate 27.3 mmol/L (22-26); Blood Gas Specimen Type ART; Comment 15/10 cmH2O; Mode Not entered; O2 Delivery Device BiPAP; PO2 72 mmHG (75-100); SITE R Radial; SO2 95 % (95-99); Total Carbon Dioxide 29 mmol/L; pH 7.46 (7.35-7.45)
[2023-04-11] MEDS: Furosemide 20 MG/2 ML VIAL IV (21:30)
[2023-04-11] MEDS: Atorvastatin Calcium 80 MG Tablet 40 MG PO (21:34)
[2023-04-11 21:45] LABS: BNP,B-Type NATRIURETIC PEPTIDE 25.4 pg/mL (0-100)
[2023-04-12] VITALS (14 sets, daily range): BP systolic 90–142; BP diastolic 45–61; PULSE 53–69; RESP 12–24; TEMP 36.3–37.1; O2SAT 94–98
[2023-04-12] MEDS: Ampicillin/Sulbactam 3 GM in 0.9% Normal Saline (100mL MB+) 100 ML IV ×5 (01:20→23:00)
[2023-04-12] MEDS: Ipratropium/Albuterol Sulfate 3 ML AMPUL.NEB INHALATION ×4 (01:44→19:01)
--- NOTE | 2023-04-12 08:05 | PCM.PN.HOSP ---
Reason for Visit Reason for Visit: Diagnoses Morbid (severe) obesity due to excess calories (04/10/23) Pneumonia, unspecified organism (04/10/23) Benign prostatic hyperplasia without lower urinary tract symptoms (04/10/23) Weakness (04/10/23) Other specified abnormal findings of blood chemistry (04/10/23) Body mass index [BMI] 40.0-44.9, adult (04/10/23) Subjective Subjective Feeling slightly better, still has some rattling, presently getting breathing treatment Objective Data Objective Data Vital Signs: Vital Signs Temp Pulse Resp BP Pulse Ox O2 Del Method O2 Flow Rate 97.5 F L 53 L 14 100/54 L 98 Bi-pap 6 04/12/23 06:36 04/12/23 06:36 04/12/23 06:36 04/12/23 06:36 04/12/23 06:36 04/12/23 06:36 04/11/23 22:43 FiO2 40 04/12/23 03:52 Oxygen Flow Rate (L/min) 6 Oxygen Delivery Method Bi-pap Weight: 117.055 kg Body Mass Index (BMI) 42.9 Intake & Output: Intake and Output for Last 24 Hours 04/10/23 04/11/23 04/12/23 23:59 23:59 23:59 Intake Total 1072.5 / 1072.5 1179 / 1179 224 / 224 Output Total 250 / 250 250 / 1050 1250 / 1250 Balance 822.5 / 822.5 929 / 129 -1026 / -1026 Lab / Micro Data 04/12/23 07:43 04/12/23 07:43 Labs: Laboratory Results - last 24 hr 04/11/23 21:19: B-Natriuretic Peptide 25.4 Micro: Microbiology 04/10/23 10:15 Blood Culture (Wb) - Right Hand Blood Culture - Preliminary No growth in 48 hours. 04/10/23 09:40 Blood Culture (Wb) - Anticubital Right Blood Culture - Preliminary No growth in 48 hours. 04/10/23 18:17 Urine, Random Legionella Antigen - Final 04/10/23 18:17 Urine, Random Streptococcus pneumoniae Antigen (M - Final 04/10/23 11:37 Mucosa - Nasopharyngeal Respiratory Panel (PCR) - Final 04/10/23 08:45 Mucosa - Nose SARS-CoV-2, Influenza & RSV (PCR) - Final ABG Data ABG results: ABG 04/11/23 21:09 Specimen Type ART Sample Site R Radial pH 7.46 H Bicarbonate Actual 27.3 H Total CO2 29 Base Excess 4 H O2 Saturation 95 O2 % 6.0 ABG pCO2 38.0 ABG pO2 72 L Issa Test Positive O2 Delivery Device BiPAP Vent Mode Not entered Clinical Comments 15/10 cmH2O Radiography Diagnostic Testing: Radiology Impression Chest X-Ray 04/11/23 20:45 IMPRESSION: Bilateral atelectasis, otherwise no acute cardiopulmonary disease. Electronically Signed: Gale Lima MD at 21:18 EST , Physical Exam Narrative General: Alert, no apparent distress HEENT: Atraumatic Eyes: Anicteric, normal conjunctiva, extraocular movements grossly intact Neck: Supple Respiratory: Transmitted upper airway sounds Cardiovascular: Regular rate GI: Soft, nontender, nondistended Extremities: 1+ lower extremity edema Musculoskeletal: Moving all extremities Neuro: Generalized weakness with left upper extremity contraction, left extremity weaker compared to right and left-sided facial droop Skin: Diffuse bruising Psych: Cooperative Assessment & Plan Assessment/Plan (1) Pneumonia: (2) Weakness: (3) Elevated serum creatinine: (4) BPH (benign prostatic hyperplasia): (5) Morbid obesity with BMI of 40.0-44.9, adult: PLAN: Plan #?Pneumonia -Community-acquired versus aspiration -Imaging: Chest x-ray suggestive of infiltrates -DuoNebs and as needed albuterol -Sputum culture, COVID and flu, respiratory panel -Urine antigens -Mucinex, I/S -Rocephin and azithromycin -Consult speech -04/11: Speech evaluated, swallowing study with mild dysphagia, compensatory strategies recommended by speech and reviewed, Legionella and strep pneumo negative, COVID and respiratory panels negative, patient on Rocephin and azithromycin, continue nebs and Mucinex. Patient and family requesting pulmonary consult, pulm consult placed per their request and it was advised to transition antibiotics to Unasyn with Augmentin at discharge for 7 days total therapy and to follow-up with pulmonology on outpatient basis -04/12: Patient went to 85% on NIPPV overnight and received dose of Lasix, chest x-ray unremarkable at that time, suspect that he had transmitted upper airway sounds as per previous and was not fluid overloaded given normal BNP, pH was 7.46 on ABG with a pO2 of 72 on BiPAP, sats did improve with supportive care, continue Unasyn, Mucinex, nebs, speech/feeding modifications. Did discuss desats with pulm and its suspected patient may need additional O2 with CPAP overnight, will try 2 L tonight and assess for desats # Concern for dehydration -Gentle IV fluids -04/11: Status post fluids, kidney function stable -04/12: Worsened kidney function, urine studies, kidney and bladder ultrasound indeterminant and noted mild hydronephrosis or pelviectasis of left kidney but recommended repeat study or CT, hesitant to lie patient flat, will perform postvoid to verify patient not retaining and will repeat ultrasound in the a.m. #Pancytopenia -Unclear etiology, all cell lines down slightly after fluids, may need outpatient follow-up if counts do not recover after acute illness -04/12: Virtually identical to yesterday, likely outpatient follow-up #Generalized weakness and falls -Treat underlying illness -PT/OT -CM/SW -CT head and cervical spine without acute process -No urinary symptoms and other explanation for weakness and sx so UA not checked -04/11: Continue to treat underlying problem, PT/OT, confounded by patient's chronic left-sided deficits -04/12: Patient does require significant assistance but family does not want patient to go to facility and wants patient to go home on d/c # Seizure disorder -Continue Keppra # History of CVA with residual left-sided weakness -Continue home medications # Chronic BPH with obstruction -Chronically on tamsulosin, will continue #Morbid obesity -BMI 40.6 kg/m? -Complicates treatment, prognosis, outcomes -Recommend weight loss and lifestyle changes #DVT ppx: Davy Valdez MD Time spent in the patient's overall evaluation,decision-making process, review of diagnostic data, adjustment of management, discussion with other providers, nursing nursing and ancillary staff involved in patient's care documentation, 35 minutes [employer] Receptionist Reflex Medical hold order details:: IF a medical hold is selected below, a suggested order for a MEDICAL HOLD will reflex upon signing the document. Next of kin: [place] law dictates a PRIORITY LIST for identifying legal decision-maker/legal next of kin in the following order (LNOK): 1st: The patient?s legal guardian, if any 2nd: The patient's spouse (if status is questionable, consult Risk Management) 3rd: The patient?s adult child(casey) (majority, if multiple children) 4th: The patient?s parents 5th: The patient?s adult siblings (majority, if multiple children siblings) Charges/Coding Visit Charges Inpatient E&M: 35050 Subs Hosp L2
[2023-04-12 08:13] LABS: Absolute Lymphocyte Count 0.98 X10^3/uL (0.83-4.51); Absolute Neutrophil Count 2.3 X10^3/uL (2.0-7.7); Basophil# 0.02 X10^3/uL; Basophil% 0.5 % (0-1); Eosinophil# 0.06 X10^3/uL; Eosinophils% 1.6 % (0-5); Hematocrit 31.4 % (40-54); Hemoglobin 9.5 g/dL (13.0-16.5); Lymphocyte # 0.98 X10^3/ul (0.83-4.51); Lymphocyte % 25.4 % (19-41); Mean Corp Hgb Conc 30.3 g/dL (32-36); Mean Corpuscular Hgb 27.9 pg (27.0-32.0); Mean Corpuscular Volume 92.4 fL (80-94); Mean Platelet Vol. 10.6 fl (6.2-12.0); Monocyte# 0.44 X10^3/uL; Monocyte% 11.4 % (0-10); NRBC Flagged by Analyzer 0 % (0-5); Neutrophil # 2.33 X10^3/uL (2.7-7.7); Neutrophil % 60.3 % (47-70); POSITIVE COUNT YES; Platelet Count 90 K/mm3 (150-450); RBC Distribution Width CV 18.1 % (11.6-14.6); RBC Distribution Width SD 59.9 fl (35.1-43.9); White Blood Count 3.9 K/mm3 (4.4-11.0)
[2023-04-12 08:19] LABS: Differential Indicated SCAN CRITERIA MET
[2023-04-12 08:30] LABS: Anion Gap 3 (5-15); BUN 28 mg/dL (7-18); BUN/Creat Ratio 18.2 RATIO (10-20); Calcium,Total 8.8 mg/dL (8.5-10.1); Chloride 113 mmol/L (98-107); Creatinine, Serum 1.54 mg/dL (0.70-1.30); EST Glomerular Filtration Rate 47 mL/min (>60); Est Glom Filt Rate - Afr Amer 56 mL/min (>60); Estimated Creatinine Clearance 46.06 ml/min; Glucose 87 mg/dL (74-106); Potassium 4.2 mmol/L (3.5-5.1); Sodium Level 144 mmol/L (136-145)
--- NOTE | 2023-04-12 08:43 | US_ITS ---
HISTORY: Worsened kidney function. TECHNIQUE: Yost scale and color doppler images were obtained of the kidneys. 60 images. COMPARISON: None. FINDINGS: RIGHT KIDNEY: 10.4 cm in length with a cortical thickness of 1.2 cm. No hydronephrosis. 2.5 cm and 2.7 cm cysts. LEFT KIDNEY: 10.8 cm in length with a cortical thickness of 1 cm. Limited evaluation due to patient condition, overlying body gas, and body habitus. Mild left hydronephrosis or pelviectasis. URINARY BLADDER: Distended at 469 cc with a wall thickness of 3 mm. Right ureteral jet visualized. US/Kidney and Bladder IMPRESSION: Limited evaluation of the left kidney with mild hydronephrosis or pelviectasis. Recommend repeat study or CT. Small right renal cysts. Electronically Signed: Janine Cuevas MD at 12:44 EST ,
[2023-04-12 09:29] LABS: Differential Comment S
[2023-04-12] MEDS: levETIRAcetam 500 MG Tablet PO ×2 (09:38→22:58)
[2023-04-12] MEDS: Miconazole Nitrate 43 GM Bottle 1 APPLIC TOPICAL ×2 (09:38→23:01)
[2023-04-12] MEDS: APIXABAN 5 MG TABLET PO ×2 (09:38→22:58)
[2023-04-12] MEDS: guaiFENesin 1,200 MG Tablet 1200 MG PO ×2 (09:38→22:58)
--- NOTE | 2023-04-12 11:14 | CASEMGMT ---
This RN CM to pt room at this time. Pt at bedside. Explained to the pt and pt that we would like the daughter and to see how the pt does with therapy. This is because the daughter is refusing SNF and requesting HHC and the pt was a x2 assist yesterday and could not make it to the chair. PT called and message left.
[2023-04-12 13:16] LABS: Urea Nitrogen, Urine 370 mg/dL (NO RANGE EST.); Urine Chloride 156 mmol/L (Not Establ.); Urine Sodium 136 mmol/L (Not Establ.)
[2023-04-12 13:26] LABS: Osmolality, Urine 538 mOsm/KG
--- NOTE | 2023-04-12 15:13 | NURSING ---
reviewed student charting
--- NOTE | 2023-04-12 16:25 | CASEMGMT ---
Discharge Planning A list of?SNF providers including quality and resource use data and consistent with the patient's preferred geographic region, medical needs, and insurance network was created in [employer] Guide.? This list was provided to the SW. Sofia Armas Discharge Planning Asst.
[2023-04-12] MEDS: Tamsulosin HCl 0.4 MG Capsule 0.400000000000000022 MG PO (17:28)
[2023-04-12] MEDS: Atorvastatin Calcium 80 MG Tablet 40 MG PO (22:58)
[2023-04-12] MEDS: 0.9% Normal Saline (250mL Bag) 250 ML 15 ML IV (22:59)
[2023-04-13] VITALS (13 sets, daily range): BP systolic 95–131; BP diastolic 40–75; PULSE 60–72; RESP 12–24; TEMP 36.4–36.8; O2SAT 86–97
[2023-04-13] MEDS: Ipratropium/Albuterol Sulfate 3 ML AMPUL.NEB INHALATION ×3 (00:50→13:22)
[2023-04-13] MEDS: Ampicillin/Sulbactam 3 GM in 0.9% Normal Saline (100mL MB+) 100 ML IV ×4 (05:29→23:04)
[2023-04-13] MEDS: levETIRAcetam 500 MG Tablet PO ×2 (08:19→20:53)
[2023-04-13] MEDS: Miconazole Nitrate 43 GM Bottle 1 APPLIC TOPICAL ×2 (08:19→20:53)
[2023-04-13] MEDS: APIXABAN 5 MG TABLET PO ×2 (08:19→20:53)
[2023-04-13] MEDS: guaiFENesin 1,200 MG Tablet 1200 MG PO ×2 (08:19→20:53)
[2023-04-13 08:27] LABS: Absolute Lymphocyte Count 0.76 X10^3/uL (0.83-4.51); Absolute Neutrophil Count 2.3 X10^3/uL (2.0-7.7); Basophil# 0.02 X10^3/uL; Basophil% 0.6 % (0-1); Eosinophil# 0.08 X10^3/uL; Eosinophils% 2.2 % (0-5); Hematocrit 32.9 % (40-54); Hemoglobin 9.9 g/dL (13.0-16.5); Lymphocyte # 0.76 X10^3/ul (0.83-4.51); Lymphocyte % 21.2 % (19-41); Mean Corp Hgb Conc 30.1 g/dL (32-36); Mean Corpuscular Hgb 27.9 pg (27.0-32.0); Mean Corpuscular Volume 92.7 fL (80-94); Mean Platelet Vol. 10.9 fl (6.2-12.0); Monocyte# 0.35 X10^3/uL; Monocyte% 9.8 % (0-10); NRBC Flagged by Analyzer 0 % (0-5); Neutrophil # 2.34 X10^3/uL (2.7-7.7); Neutrophil % 65.4 % (47-70); Platelet Count 100 K/mm3 (150-450); RBC Distribution Width CV 17.9 % (11.6-14.6); RBC Distribution Width SD 60.4 fl (35.1-43.9); Red Blood Count 3.55 M/mm3 (4.6-6.2); White Blood Count 3.6 K/mm3 (4.4-11.0)
--- NOTE | 2023-04-13 09:00 | RAD_ITS ---
STUDY: X-RAY CHEST REASON FOR EXAM: Male, 77 years old. Increased oxygen demand. TECHNIQUE: Single frontal view of the chest on 2 images. COMPARISON: 04/11/2023 FINDINGS: Cardiomegaly, aortic tortuosity with calcification, prominent central pulmonary arteries and low volume inspiration, relatively unchanged. Increased lower zone interstitial opacities and atelectasis at both bases, left greater than right. Slight increase in left pleural effusion. No abnormality of the visualized soft tissue structures of the upper abdomen. RAD/Chest 1 View (Portable) IMPRESSION: Radiographic worsening with increased interstitial basilar opacities and increased left effusion. Follow-up chest imaging to resolution recommended. Electronically Signed: Brant Stapleton MD at 9:22 EST ,
[2023-04-13 09:06] LABS: Anion Gap 4 (5-15); BUN 27 mg/dL (7-18); BUN/Creat Ratio 18.9 RATIO (10-20); Calcium,Total 8.8 mg/dL (8.5-10.1); Chloride 112 mmol/L (98-107); Creatinine, Serum 1.43 mg/dL (0.70-1.30); EST Glomerular Filtration Rate 51 mL/min (>60); Est Glom Filt Rate - Afr Amer 61 mL/min (>60); Glucose 90 mg/dL (74-106); Sodium Level 143 mmol/L (136-145)
[2023-04-13 09:08] LABS: Allen Test Positive; Base Excess 4 mmol/L (-2 to +2); Bicarbonate 28.2 mmol/L (22-26); Blood Gas Specimen Type ART; Mode Not entered; O2 Delivery Device BiPAP; PEEP 10; PO2 69 mmHG (75-100); RR 12; SITE R Radial; SO2 94 % (95-99); Total Carbon Dioxide 30 mmol/L; pCO2 43.7 mmHg (35-45); pH 7.42 (7.35-7.45)
--- NOTE | 2023-04-13 09:37 | CASEMGMT ---
Social Work SW received referral that pt and family are agreeable to placement for rehab prior to returning home. SW met with pt, Valerie and dgt Nicolasa on Facetime. All parties are agreeable that pt will need short term rehab prior to returning home. A list of SNF providers including quality and resource use data and consistent with the patient?s preferred geographic region, medical needs, and insurance network were provided from the [employer] Guide. Preferred provider is [facility] Inpatient Rehab. SW explained that insurance will need to approve Inpatient Rehab and they may not be willing to do this. Family is understanding. SW also educated that rooms may not be available in TCU as they have been full recently. Pt's and dgt stating they will absolutely not agree to a community SNF. SW educated on [facility] and [facility] TCU swing bed units. Adamantly refusing [facility]. Would be agreeable to [facility]. Referral made to Katie in [facility] post acute care requesting 1. [facility] Inpatient Rehab and 2. TCU. SW will await determination of acceptance. YOON Galicia
[2023-04-13 13:28] LABS: M R Staph aureus DNA By PCR Negative (Negative); Probe Check PASS; Specimen Processing Control PASS
--- NOTE | 2023-04-13 13:39 | PCM.PN.INT ---
Assessment & Plan Assessment/Plan (1) Pneumonia: PLAN: Plan RECOMMENDATIONS: 1. Continue Unasyn to complete 7 days of therapy. 2. Wean supplemental oxygen for saturations greater than 90%. 3. Cautious dietary advancement per speech therapy. 4. Continue PAP therapy per home regimen. 5. Attempt vest and IPPB. If unable to tolerate, will initiate a CoughAssist device. 6. Outpatient pulmonary follow-up after discharge, if symptoms persist. IMPRESSIONS: 1. Shortness of breath and cough with associated hypoxemia The patient presented to the hospital with generalized weakness, fall and a history of 1 month of mild dyspnea and cough, with concern for underlying dysphagia and potential aspiration pneumonia. The patient remains on appropriate antimicrobials to cover for aspiration. I suspect his decompensation is likely related to his inability to mobilize secretions due to weakness. Will attempt aggressive bronchopulmonary hygiene maneuvers today with vest IPPB. If the patient is unable to tolerate the aforementioned, a CoughAssist device can be utilized. I would recommend very cautious advancement of diet per speech therapy. Plan to check MRSA screen. If positive, add vancomycin to current antibiotic regimen. 2. History of obstructive sleep apnea Continue nocturnal PAP therapy per home regimen. 3. History of CVA/unspecified seizure disorder/generalized weakness/BPH/obesity Complicates care, management, recovery and prognosis. Continue home medications along with supportive care as noted above. This note was generated with [employer] dictation software. It may contain incorrect words, spelling, and punctuation that were not noted in checking the note before signing. Subjective Subjective The patient was seen and examined at the bedside this morning. Events from the last 24 hours have been reviewed. The patient is currently afebrile, hemodynamically stable and maintaining appropriate oxygen saturations on high flow nasal cannula. I was asked to reevaluate the patient on account of his worsening respiratory status. The patient apparently came off of his PAP machine earlier this morning and then had worsening hypoxemia. Chest x-ray does not look significantly different to me than it did 2 days prior. I do suspect that his underlying pulmonary complications of the result of his generalized weakness and deconditioning and subsequent inability to mobilize his secretions. Objective Data Objective Data The patient's most recent lab work, culture data and imaging studies have all been personally reviewed. MRSA screen was negative. Vital Signs: Vital Signs Temp Pulse Resp BP Pulse Ox O2 Del Method O2 Flow Rate 98 F 63 18 124/68 H 97 High Flow 13 04/13/23 12:00 04/13/23 12:00 04/13/23 12:00 04/13/23 12:00 04/13/23 12:00 04/13/23 12:00 04/13/23 12:00 FiO2 50 04/13/23 09:10 Oxygen Flow Rate (L/min) 13 Oxygen Delivery Method High Flow Weight: 258 lb 1 oz Body Mass Index (BMI) 42.9 Intake & Output: Intake and Output for Last 24 Hours 04/11/23 04/12/23 04/13/23 23:59 23:59 23:59 Intake Total 1179 / 1179 1010 / 1010 1324 / 1324 Output Total 250 / 1050 2220 / 2220 2250 / 2250 Balance 929 / 129 -1210 / -1210 -926 / -926 Lab / Micro Data Attestation: I reviewed the patient's lab results. 04/13/23 08:10 04/13/23 08:10 Labs: Laboratory Results - last 24 hr 04/13/23 08:10: WBC 3.6 L, RBC 3.55 L, Hgb 9.9 L, Hct 32.9 L, MCV 92.7, MCH 27.9, MCHC 30.1 L, RDW Std Deviation 60.4 H, RDW Coeff of Ernst 17.9 H, Plt Count 100 L, MPV 10.9, Immature Gran % (Auto) 0.800, Neut % (Auto) 65.4, Lymph % (Auto) 21.2, [place] % (Auto) 9.8, Eos % (Auto) 2.2, Baso % (Auto) 0.6, Absolute Neuts (auto) 2.3, Absolute Lymphs (auto) 0.76 L, Nucleated RBC % 0, Sodium 143, Potassium 4.0, Chloride 112 H, Carbon Dioxide 27.0, Anion Gap 4 L, BUN 27 H, Creatinine 1.43 H, Estim Creat Clear Calc 49.60, Est GFR (MDRD) Af Amer 61, Est GFR (MDRD) Non-Af 51 L, BUN/Creatinine Ratio 18.9, Glucose 90, Calcium 8.8 04/13/23 11:20: MRSA (PCR) Negative Micro: Microbiology 04/10/23 10:15 Blood Culture (Wb) - Right Hand Blood Culture - Preliminary No growth in 48 hours. 04/10/23 09:40 Blood Culture (Wb) - Anticubital Right Blood Culture - Preliminary No growth in 48 hours. 04/10/23 18:17 Urine, Random Legionella Antigen - Final 04/10/23 18:17 Urine, Random Streptococcus pneumoniae Antigen (M - Final 04/10/23 11:37 Mucosa - Nasopharyngeal Respiratory Panel (PCR) - Final 04/10/23 08:45 Mucosa - Nose SARS-CoV-2, Influenza & RSV (PCR) - Final ABG Data ABG results: ABG 04/13/23 09:05 Specimen Type ART Sample Site R Radial pH 7.42 Bicarbonate Actual 28.2 H Total CO2 30 Base Excess 4 H O2 Saturation 94 L O2 % 50.0 ABG pCO2 43.7 ABG pO2 69 L Issa Test Positive Respiration Rate 12 O2 Delivery Device BiPAP Vent Mode Not entered POC PEEP 10 Radiography Diagnostic Testing: Radiology Impression Chest X-Ray 04/13/23 09:00 IMPRESSION: Radiographic worsening with increased interstitial basilar opacities and increased left effusion. Follow-up chest imaging to resolution recommended. Electronically Signed: Brant Stapleton MD at 9:22 EST , Physical Exam Const alert and no apparent distress Constitutional Narrative: is present at the bedside. General Appearance: cooperative HEENT normocephalic and head/scalp atraumatic Eyes PERRL, EOMs intact bilaterally and conjunctivae normal Neck supple General: trachea midline Chest inspection of chest normal Resp normal respiratory effort Auscultation: diminished lung sounds Cardio regular rate and regular rhythm GI normal to inspection, nondistended, normoactive bowel sounds Extremity General Extremity: edema; Negative for clubbing Skin no rashes or lesions noted Neuro CN's II-XII intact bilaterally and no focal motor deficits Psych Mood & Affect: flat affect Charges/Coding Visit Charges Inpatient E&M: 62037 Subs Hosp L3
--- NOTE | 2023-04-13 14:22 | PCM.PN.HOSP ---
Reason for Visit Reason for Visit: Diagnoses Morbid (severe) obesity due to excess calories (04/12/23) Pneumonia, unspecified organism (04/12/23) Benign prostatic hyperplasia without lower urinary tract symptoms (04/12/23) Weakness (04/12/23) Other specified abnormal findings of blood chemistry (04/12/23) Body mass index [BMI] 40.0-44.9, adult (04/12/23) Subjective Subjective Patient had desats after being taken off of BiPAP this a.m. and had this replaced, he personally denied any complaints Objective Data Objective Data Vital Signs: Vital Signs Temp Pulse Resp BP Pulse Ox O2 Del Method O2 Flow Rate 98 F 71 19 H 124/68 H 97 High Flow 13 04/13/23 12:00 04/13/23 14:00 04/13/23 14:00 04/13/23 12:00 04/13/23 12:00 04/13/23 12:00 04/13/23 12:00 FiO2 50 04/13/23 09:10 Oxygen Flow Rate (L/min) 13 Oxygen Delivery Method High Flow Weight: 117.055 kg Body Mass Index (BMI) 42.9 Intake & Output: Intake and Output for Last 24 Hours 04/11/23 04/12/23 04/13/23 23:59 23:59 23:59 Intake Total 1179 / 1179 1010 / 1010 1324 / 1324 Output Total 250 / 1050 2220 / 2220 2250 / 2250 Balance 929 / 129 -1210 / -1210 -926 / -926 Lab / Micro Data 04/13/23 08:10 04/13/23 08:10 Labs: Laboratory Results - last 24 hr 04/13/23 08:10: WBC 3.6 L, RBC 3.55 L, Hgb 9.9 L, Hct 32.9 L, MCV 92.7, MCH 27.9, MCHC 30.1 L, RDW Std Deviation 60.4 H, RDW Coeff of Ernst 17.9 H, Plt Count 100 L, MPV 10.9, Immature Gran % (Auto) 0.800, Neut % (Auto) 65.4, Lymph % (Auto) 21.2, [place] % (Auto) 9.8, Eos % (Auto) 2.2, Baso % (Auto) 0.6, Absolute Neuts (auto) 2.3, Absolute Lymphs (auto) 0.76 L, Nucleated RBC % 0, Sodium 143, Potassium 4.0, Chloride 112 H, Carbon Dioxide 27.0, Anion Gap 4 L, BUN 27 H, Creatinine 1.43 H, Estim Creat Clear Calc 49.60, Est GFR (MDRD) Af Amer 61, Est GFR (MDRD) Non-Af 51 L, BUN/Creatinine Ratio 18.9, Glucose 90, Calcium 8.8 04/13/23 11:20: MRSA (PCR) Negative Micro: Microbiology 04/10/23 10:15 Blood Culture (Wb) - Right Hand Blood Culture - Preliminary No growth in 48 hours. 04/10/23 09:40 Blood Culture (Wb) - Anticubital Right Blood Culture - Preliminary No growth in 48 hours. 04/10/23 18:17 Urine, Random Legionella Antigen - Final 04/10/23 18:17 Urine, Random Streptococcus pneumoniae Antigen (M - Final 04/10/23 11:37 Mucosa - Nasopharyngeal Respiratory Panel (PCR) - Final 04/10/23 08:45 Mucosa - Nose SARS-CoV-2, Influenza & RSV (PCR) - Final ABG Data ABG results: ABG 04/13/23 09:05 Specimen Type ART Sample Site R Radial pH 7.42 Bicarbonate Actual 28.2 H Total CO2 30 Base Excess 4 H O2 Saturation 94 L O2 % 50.0 ABG pCO2 43.7 ABG pO2 69 L Issa Test Positive Respiration Rate 12 O2 Delivery Device BiPAP Vent Mode Not entered POC PEEP 10 Radiography Diagnostic Testing: Radiology Impression Chest X-Ray 04/13/23 09:00 IMPRESSION: Radiographic worsening with increased interstitial basilar opacities and increased left effusion. Follow-up chest imaging to resolution recommended. Electronically Signed: Brant Stapleton MD at 9:22 EST , Physical Exam Narrative General: Alert, no apparent distress HEENT: Atraumatic Eyes: Anicteric, normal conjunctiva, extraocular movements grossly intact Neck: Supple Respiratory: Transmitted upper airway sounds Cardiovascular: Regular rate GI: Soft, nontender, nondistended Extremities: 1+ lower extremity edema Musculoskeletal: Moving all extremities Neuro: Generalized weakness with left upper extremity contraction, left extremity weaker compared to right and left-sided facial droop Skin: Diffuse bruising Psych: Cooperative Assessment & Plan Assessment/Plan (1) Pneumonia: (2) Weakness: (3) Elevated serum creatinine: (4) BPH (benign prostatic hyperplasia): (5) Morbid obesity with BMI of 40.0-44.9, adult: PLAN: Plan #?Pneumonia and acute hypoxia -Community-acquired versus aspiration -Imaging: Chest x-ray suggestive of infiltrates -DuoNebs and as needed albuterol -Sputum culture, COVID and flu, respiratory panel -Urine antigens -Mucinex, I/S -Rocephin and azithromycin -Consult speech -04/11: Speech evaluated, swallowing study with mild dysphagia, compensatory strategies recommended by speech and reviewed, Legionella and strep pneumo negative, COVID and respiratory panels negative, patient on Rocephin and azithromycin, continue nebs and Mucinex. Patient and family requesting pulmonary consult, pulm consult placed per their request and it was advised to transition antibiotics to Unasyn with Augmentin at discharge for 7 days total therapy and to follow-up with pulmonology on outpatient basis -04/12: Patient went to 85% on NIPPV overnight and received dose of Lasix, chest x-ray unremarkable at that time, suspect that he had transmitted upper airway sounds as per previous and was not fluid overloaded given normal BNP, pH was 7.46 on ABG with a pO2 of 72 on BiPAP, sats did improve with supportive care, continue Unasyn, Mucinex, nebs, speech/feeding modifications. Did discuss desats with pulm and its suspected patient may need additional O2 with CPAP overnight, will try 2 L tonight and assess for desats -04/13: Patient initially did okay overnight however when taken off of NIPPV this morning he desaturated, chest x-ray really not much different from previous, had to be placed back on BiPAP, ABG did reveal hypoxia, reevaluated by pulm, patient to use CoughAssist device, continuing present antibiotics and management, spoke with speech and patient did fairly well with a swallow eval but there is still concern for aspiration and the queried if that it could be esophageal component, after discussing it was ultimately recommended the GI consulted for evaluation # Concern for dehydration -Gentle IV fluids -04/11: Status post fluids, kidney function stable -04/12: Worsened kidney function, urine studies, kidney and bladder ultrasound indeterminant and noted mild hydronephrosis or pelviectasis of left kidney but recommended repeat study or CT, hesitant to lie patient flat, will perform postvoid to verify patient not retaining and will repeat ultrasound in the a.m. -04/13: Stable #Pancytopenia -Unclear etiology, all cell lines down slightly after fluids, may need outpatient follow-up if counts do not recover after acute illness -04/12: Virtually identical to yesterday, likely outpatient follow-up -04/13: Similar to previous #Generalized weakness and falls -Treat underlying illness -PT/OT -CM/SW -CT head and cervical spine without acute process -No urinary symptoms and other explanation for weakness and sx so UA not checked -04/11: Continue to treat underlying problem, PT/OT, confounded by patient's chronic left-sided deficits -04/12: Patient does require significant assistance but family does not want patient to go to facility and wants patient to go home on d/c # Seizure disorder -Continue Keppra # History of CVA with residual left-sided weakness -Continue home medications # Chronic BPH with obstruction -Chronically on tamsulosin, will continue #Morbid obesity -BMI 40.6 kg/m? -Complicates treatment, prognosis, outcomes -Recommend weight loss and lifestyle changes #DVT ppx: Davy Valdez MD Time spent in the patient's overall evaluation,decision-making process, review of diagnostic data, adjustment of management, discussion with other providers, nursing nursing and ancillary staff involved in patient's care documentation, 35 minutes Capacity Legal Traffic Sign Supervisor Reflex Medical hold order details:: IF a medical hold is selected below, a suggested order for a MEDICAL HOLD will reflex upon signing the document. Next of kin: [place] law dictates a PRIORITY LIST for identifying legal decision-maker/legal next of kin in the following order (LNOK): 1st: The patient?s legal guardian, if any 2nd: The patient's spouse (if status is questionable, consult Risk Management) 3rd: The patient?s adult child(casey) (majority, if multiple children) 4th: The patient?s parents 5th: The patient?s adult siblings (majority, if multiple children siblings) Charges/Coding Visit Charges Inpatient E&M: 13978 Subs Hosp L2
[2023-04-13] MEDS: Tamsulosin HCl 0.4 MG Capsule 0.400000000000000022 MG PO (17:38)
[2023-04-13] MEDS: 0.9% Normal Saline (250mL Bag) 250 ML 15 ML IV (17:45)
[2023-04-13] MEDS: Atorvastatin Calcium 80 MG Tablet 40 MG PO (20:53)
[2023-04-14] VITALS (16 sets, daily range): BP systolic 101–124; BP diastolic 66–88; PULSE 50–70; RESP 12–22; TEMP 36.4–36.6; O2SAT 92–98
[2023-04-14] MEDS: Ipratropium/Albuterol Sulfate 3 ML AMPUL.NEB INHALATION ×4 (01:09→19:09)
[2023-04-14] MEDS: Ampicillin/Sulbactam 3 GM in 0.9% Normal Saline (100mL MB+) 100 ML IV ×4 (05:31→23:36)
[2023-04-14 06:21] LABS: Absolute Lymphocyte Count 0.78 X10^3/uL (0.83-4.51); Absolute Neutrophil Count 2.6 X10^3/uL (2.0-7.7); Basophil# 0.01 X10^3/uL; Basophil% 0.3 % (0-1); Eosinophil# 0.08 X10^3/uL; Hematocrit 31.8 % (40-54); Hemoglobin 9.7 g/dL (13.0-16.5); Lymphocyte # 0.78 X10^3/ul (0.83-4.51); Lymphocyte % 19.8 % (19-41); Mean Corp Hgb Conc 30.5 g/dL (32-36); Mean Corpuscular Volume 91.9 fL (80-94); Mean Platelet Vol. 10.4 fl (6.2-12.0); Monocyte# 0.43 X10^3/uL; Monocyte% 10.9 % (0-10); NRBC Flagged by Analyzer 0 % (0-5); Neutrophil # 2.61 X10^3/uL (2.7-7.7); Neutrophil % 66.5 % (47-70); Platelet Count 119 K/mm3 (150-450); RBC Distribution Width SD 58.9 fl (35.1-43.9); Red Blood Count 3.46 M/mm3 (4.6-6.2); White Blood Count 3.9 K/mm3 (4.4-11.0)
[2023-04-14 06:38] LABS: Anion Gap 2 (5-15); BUN 23 mg/dL (7-18); BUN/Creat Ratio 19.5 RATIO (10-20); Calcium,Total 8.8 mg/dL (8.5-10.1); Chloride 113 mmol/L (98-107); Creatinine, Serum 1.18 mg/dL (0.70-1.30); EST Glomerular Filtration Rate 63 mL/min (>60); Est Glom Filt Rate - Afr Amer 77 mL/min (>60); Estimated Creatinine Clearance 60.11 ml/min; Glucose 101 mg/dL (74-106); Potassium 4.1 mmol/L (3.5-5.1); Sodium Level 143 mmol/L (136-145)
--- NOTE | 2023-04-14 08:05 | PCM.PN.HOSP ---
Reason for Visit Reason for Visit: Diagnoses Morbid (severe) obesity due to excess calories (04/12/23) Pneumonia, unspecified organism (04/12/23) Benign prostatic hyperplasia without lower urinary tract symptoms (04/12/23) Weakness (04/12/23) Other specified abnormal findings of blood chemistry (04/12/23) Body mass index [BMI] 40.0-44.9, adult (04/12/23) Subjective Subjective Patient reports no complaints, taken off BiPAP and placed on nasal cannula for my evaluation, tolerating nasal cannula though still at higher oxygen requirement Objective Data Objective Data Vital Signs: Vital Signs Temp Pulse Resp BP Pulse Ox O2 Del Method O2 Flow Rate 97.9 F 61 19 H 124/75 H 96 Bi-pap 13 04/14/23 05:32 04/14/23 05:32 04/14/23 05:32 04/14/23 05:32 04/14/23 05:32 04/14/23 05:37 04/13/23 23:00 FiO2 50 04/14/23 04:31 Oxygen Flow Rate (L/min) 13 Oxygen Delivery Method Bi-pap Weight: 117.055 kg Body Mass Index (BMI) 42.9 Intake & Output: Intake and Output for Last 24 Hours 04/12/23 04/13/23 04/14/23 23:59 23:59 23:59 Intake Total 1010 / 1010 2098 / 2098 112 / 112 Output Total 2220 / 2220 2650 / 2650 Balance -1210 / -1210 -552 / -552 112 / 112 Lab / Micro Data 04/14/23 05:55 04/14/23 05:55 Labs: Laboratory Results - last 24 hr 04/13/23 08:10: WBC 3.6 L, RBC 3.55 L, Hgb 9.9 L, Hct 32.9 L, MCV 92.7, MCH 27.9, MCHC 30.1 L, RDW Std Deviation 60.4 H, RDW Coeff of Ernst 17.9 H, Plt Count 100 L, MPV 10.9, Immature Gran % (Auto) 0.800, Neut % (Auto) 65.4, Lymph % (Auto) 21.2, [place] % (Auto) 9.8, Eos % (Auto) 2.2, Baso % (Auto) 0.6, Absolute Neuts (auto) 2.3, Absolute Lymphs (auto) 0.76 L, Nucleated RBC % 0, Sodium 143, Potassium 4.0, Chloride 112 H, Carbon Dioxide 27.0, Anion Gap 4 L, BUN 27 H, Creatinine 1.43 H, Estim Creat Clear Calc 49.60, Est GFR (MDRD) Af Amer 61, Est GFR (MDRD) Non-Af 51 L, BUN/Creatinine Ratio 18.9, Glucose 90, Calcium 8.8 04/13/23 11:20: MRSA (PCR) Negative 04/14/23 05:55: WBC 3.9 L, RBC 3.46 L, Hgb 9.7 L, Hct 31.8 L, MCV 91.9, MCH 28.0, MCHC 30.5 L, RDW Std Deviation 58.9 H, RDW Coeff of Ernst 18.0 H, Plt Count 119 L, MPV 10.4, Immature Gran % (Auto) 0.500, Neut % (Auto) 66.5, Lymph % (Auto) 19.8, [place] % (Auto) 10.9 H, Eos % (Auto) 2.0, Baso % (Auto) 0.3, Absolute Neuts (auto) 2.6, Absolute Lymphs (auto) 0.78 L, Nucleated RBC % 0, Sodium 143, Potassium 4.1, Chloride 113 H, Carbon Dioxide 28.0, Anion Gap 2 L, BUN 23 H, Creatinine 1.18, Estim Creat Clear Calc 60.11, Est GFR (MDRD) Af Amer 77, Est GFR (MDRD) Non-Af 63, BUN/Creatinine Ratio 19.5, Glucose 101, Calcium 8.8 Micro: Microbiology 04/10/23 10:15 Blood Culture (Wb) - Right Hand Blood Culture - Preliminary No growth in 48 hours. 04/10/23 09:40 Blood Culture (Wb) - Anticubital Right Blood Culture - Preliminary No growth in 48 hours. 04/10/23 18:17 Urine, Random Legionella Antigen - Final 04/10/23 18:17 Urine, Random Streptococcus pneumoniae Antigen (M - Final 04/10/23 11:37 Mucosa - Nasopharyngeal Respiratory Panel (PCR) - Final 04/10/23 08:45 Mucosa - Nose SARS-CoV-2, Influenza & RSV (PCR) - Final ABG Data ABG results: ABG 04/13/23 09:05 Specimen Type ART Sample Site R Radial pH 7.42 Bicarbonate Actual 28.2 H Total CO2 30 Base Excess 4 H O2 Saturation 94 L O2 % 50.0 ABG pCO2 43.7 ABG pO2 69 L Issa Test Positive Respiration Rate 12 O2 Delivery Device BiPAP Vent Mode Not entered POC PEEP 10 Radiography Diagnostic Testing: Radiology Impression Chest X-Ray 04/13/23 09:00 IMPRESSION: Radiographic worsening with increased interstitial basilar opacities and increased left effusion. Follow-up chest imaging to resolution recommended. Electronically Signed: Brant Stapleton MD at 9:22 EST , Physical Exam Narrative General: Alert, no apparent distress HEENT: Atraumatic Eyes: Anicteric, normal conjunctiva, extraocular movements grossly intact Neck: Supple Respiratory: Transmitted upper airway sounds, somewhat decreased bilaterally Cardiovascular: Regular rate GI: Soft, nontender, nondistended Extremities: 1+ lower extremity edema Musculoskeletal: Moving all extremities Neuro: Generalized weakness with left upper extremity contraction, left extremity weaker compared to right and left-sided facial droop Skin: Diffuse bruising Psych: Cooperative Assessment & Plan Assessment/Plan (1) Pneumonia: (2) Weakness: (3) Elevated serum creatinine: (4) BPH (benign prostatic hyperplasia): (5) Morbid obesity with BMI of 40.0-44.9, adult: PLAN: Plan #?Pneumonia and acute hypoxia -Community-acquired versus aspiration -Imaging: Chest x-ray suggestive of infiltrates -DuoNebs and as needed albuterol -Sputum culture, COVID and flu, respiratory panel -Urine antigens -Mucinex, I/S -Rocephin and azithromycin -Consult speech -04/11: Speech evaluated, swallowing study with mild dysphagia, compensatory strategies recommended by speech and reviewed, Legionella and strep pneumo negative, COVID and respiratory panels negative, patient on Rocephin and azithromycin, continue nebs and Mucinex. Patient and family requesting pulmonary consult, pulm consult placed per their request and it was advised to transition antibiotics to Unasyn with Augmentin at discharge for 7 days total therapy and to follow-up with pulmonology on outpatient basis -04/12: Patient went to 85% on NIPPV overnight and received dose of Lasix, chest x-ray unremarkable at that time, suspect that he had transmitted upper airway sounds as per previous and was not fluid overloaded given normal BNP, pH was 7.46 on ABG with a pO2 of 72 on BiPAP, sats did improve with supportive care, continue Unasyn, Mucinex, nebs, speech/feeding modifications. Did discuss desats with pulm and its suspected patient may need additional O2 with CPAP overnight, will try 2 L tonight and assess for desats -04/13: Patient initially did okay overnight however when taken off of NIPPV this morning he desaturated, chest x-ray really not much different from previous, had to be placed back on BiPAP, ABG did reveal hypoxia, reevaluated by pulm, patient to use CoughAssist device, continuing present antibiotics and management, spoke with speech and patient did fairly well with a swallow eval but there is still concern for aspiration and the queried if that it could be esophageal component, after discussing it was ultimately recommended the GI consulted for evaluation -04/14: Has alternated between BiPAP and high flow, weaning O2 as tolerated, GI evaluation to see if there may be esophageal pathology leading to patient aspirating independent of his ability to swallow, continuing Unasyn, nebs, Mucinex, cough laundry assistant device, will discuss possible echo and further evaluation from that aspect with family # Concern for dehydration -Gentle IV fluids -04/11: Status post fluids, kidney function stable -04/12: Worsened kidney function, urine studies, kidney and bladder ultrasound indeterminant and noted mild hydronephrosis or pelviectasis of left kidney but recommended repeat study or CT, hesitant to lie patient flat, will perform postvoid to verify patient not retaining and will repeat ultrasound in the a.m. -04/13: Stable #Pancytopenia -Unclear etiology, all cell lines down slightly after fluids, may need outpatient follow-up if counts do not recover after acute illness -04/12: Virtually identical to yesterday, likely outpatient follow-up -04/13: Similar to previous -04/14: Platelets improving #Generalized weakness and falls -Treat underlying illness -PT/OT -CM/SW -CT head and cervical spine without acute process -No urinary symptoms and other explanation for weakness and sx so UA not checked -04/11: Continue to treat underlying problem, PT/OT, confounded by patient's chronic left-sided deficits -04/12: Patient does require significant assistance but family does not want patient to go to facility and wants patient to go home on d/c -04/14: Patient likely for SNF once medically stable # Seizure disorder -Continue Keppra # History of CVA with residual left-sided weakness -Continue home medications # Chronic BPH with obstruction -Chronically on tamsulosin, will continue #Morbid obesity -BMI 40.6 kg/m? -Complicates treatment, prognosis, outcomes -Recommend weight loss and lifestyle changes #DVT ppx: Davy Valdez MD Time spent in the patient's overall evaluation,decision-making process, review of diagnostic data, adjustment of management, discussion with other providers, nursing nursing and ancillary staff involved in patient's care documentation, 51 minutes Capacity Legal Lift Team Technician Reflex Medical hold order details:: IF a medical hold is selected below, a suggested order for a MEDICAL HOLD will reflex upon signing the document. Next of kin: [place] law dictates a PRIORITY LIST for identifying legal decision-maker/legal next of kin in the following order (LNOK): 1st: The patient?s legal guardian, if any 2nd: The patient's spouse (if status is questionable, consult Risk Management) 3rd: The patient?s adult child(casey) (majority, if multiple children) 4th: The patient?s parents 5th: The patient?s adult siblings (majority, if multiple children siblings) Charges/Coding Visit Charges Inpatient E&M: 32611 Subs Hosp L3
--- NOTE | 2023-04-14 13:36 | ECHOCS_ITS ---
Reason For Study: SOB, weakness Procedure This was a 2D Doppler, Color Flow transthoracic echocardiogram. The study was technically difficult. Exam performed portable in patient room. Left Ventricle Normal left ventricle. The estimated ejection fraction is 55-60 %. Right Ventricle Normal right ventricle. Normal systolic function. Atria Normal left atrium. Normal right atrium. Mitral Valve The mitral valve is structurally normal. No prolapse or stenosis seen. Tricuspid Valve Normal tricuspid valve. Aortic Valve Moderate diffuse aortic valve calcification. Mild (1+) aortic valve insufficiency. Pulmonic Valve The pulmonic valve is not well visualized. Great Vessels Normal aortic root. Pericardium/Pleural No pericardial effusion. Medication Diluted definity 2ml given slow IV push to enhance endocardial definition. MMode/2D Measurements & Calculations LVIDd: 4.9 cm IVSd: 1.4 cm Ao root diam: 3.6 cm LVIDs: 3.3 cm LVPWd: 1.2 cm RVDd: 3.2 cm FS: 33.6 % LAV(MOD-bp): 41.0 ml LVAd ap4: 32.5 cm2 LVAd ap2: 22.4 cm2 LAV(MOD-bp) Indexed: 18.7 ml/m2 LVLd ap4: 7.6 cm LVLd ap2: 6.4 cm LAV(MOD-sp2): 46.1 ml EDV(MOD-sp4): 111.6 ml EDV(MOD-sp2): 63.3 ml LAV(MOD-sp4): 34.1 ml EDV(sp4-el): 117.5 ml EDV(sp2-el): 66.1 ml LVAs ap4: 17.7 cm2 LVAs ap2: 13.6 cm2 LVLs ap4: 5.9 cm LVLs ap2: 5.3 cm ESV(MOD-sp4): 43.5 ml ESV(MOD-sp2): 28.0 ml ESV(sp4-el): 45.0 ml ESV(sp2-el): 29.3 ml EF(MOD-sp4): 61.0 % EF(MOD-sp2): 55.7 % EF(sp4-el): 61.7 % SV(MOD-sp4): 68.1 ml SV(MOD-sp2): 35.2 ml SV(sp4-el): 72.5 ml LA A4 area: 15.0 cm2 LA dimension(2D): 3.2 cm RA A4 area: 11.2 cm2 Time Measurements MV dec time: 0.32 sec Doppler Measurements & Calculations MV E max alek: 62.8 cm/sec Lat Peak E' Alek: 8.1 cm/sec Med Peak E' Alek: 5.5 cm/sec MV A max alek: 74.3 cm/sec E/E' lat: 7.8 E/E' med: 11.5 MV E/A: 0.84 Ao V2 max: 143.8 cm/sec LV V1 max: 119.3 cm/sec MV dec slope: 195.6 cm/sec2 Ao max P.3 mmHg LV V1 max P.7 mmHg PA V2 max: 86.5 cm/sec TR max alek: 270.1 cm/sec TR max P.2 mmHg ECHO/Echo Complete W/ Contrast Interpretation Summary The estimated ejection fraction is 55-60 %. Contrast echo used using Definity Comparing to previous echo mild aortic incompetence noted. LV function remains similar. Ordering Physician: Kiarra Valdez Referring Physician: MD Simi Eliud Performed By: Gaby Shin RDCS
[2023-04-14] MEDS: Furosemide 20 MG/2 ML VIAL IV (14:00)
[2023-04-14] MEDS: guaiFENesin 1,200 MG Tablet 1200 MG PO ×2 (14:01→23:26)
[2023-04-14] MEDS: APIXABAN 5 MG TABLET PO ×2 (14:01→23:25)
[2023-04-14] MEDS: Miconazole Nitrate 43 GM Bottle 1 APPLIC TOPICAL ×2 (14:01→22:39)
[2023-04-14] MEDS: levETIRAcetam 500 MG Tablet PO ×2 (14:01→23:26)
--- NOTE | 2023-04-14 14:44 | WOUNDNOTE ---
wound photo: left forearm
[2023-04-14] MEDS: Tamsulosin HCl 0.4 MG Capsule 0.400000000000000022 MG PO (17:17)
[2023-04-14] MEDS: Atorvastatin Calcium 80 MG Tablet 40 MG PO (23:25)
[2023-04-15] VITALS (21 sets, daily range): BP systolic 101–136; BP diastolic 56–66; PULSE 50–68; RESP 12–22; TEMP 36.1–37.1; O2SAT 85–100
[2023-04-15] MEDS: Ipratropium/Albuterol Sulfate 3 ML AMPUL.NEB INHALATION ×4 (00:19→19:27)
[2023-04-15 06:39] LABS: Absolute Lymphocyte Count 0.94 X10^3/uL (0.83-4.51); Absolute Neutrophil Count 2.3 X10^3/uL (2.0-7.7); Basophil# 0.02 X10^3/uL; Basophil% 0.5 % (0-1); Eosinophil# 0.12 X10^3/uL; Eosinophils% 3.1 % (0-5); Hematocrit 30.7 % (40-54); Hemoglobin 9.3 g/dL (13.0-16.5); Lymphocyte # 0.94 X10^3/ul (0.83-4.51); Lymphocyte % 24.1 % (19-41); Mean Corp Hgb Conc 30.3 g/dL (32-36); Mean Corpuscular Hgb 27.8 pg (27.0-32.0); Mean Corpuscular Volume 91.9 fL (80-94); Monocyte% 12.8 % (0-10); NRBC Flagged by Analyzer 0 % (0-5); Platelet Count 117 K/mm3 (150-450); RBC Distribution Width CV 17.3 % (11.6-14.6); RBC Distribution Width SD 57.7 fl (35.1-43.9); Red Blood Count 3.34 M/mm3 (4.6-6.2); White Blood Count 3.9 K/mm3 (4.4-11.0)
[2023-04-15] MEDS: Ampicillin/Sulbactam 3 GM in 0.9% Normal Saline (100mL MB+) 100 ML IV ×4 (07:06→23:02)
[2023-04-15 07:07] LABS: Anion Gap 3 (5-15); BUN 22 mg/dL (7-18); BUN/Creat Ratio 19.1 RATIO (10-20); Calcium,Total 8.4 mg/dL (8.5-10.1); Chloride 110 mmol/L (98-107); Creatinine, Serum 1.15 mg/dL (0.70-1.30); EST Glomerular Filtration Rate 65 mL/min (>60); Est Glom Filt Rate - Afr Amer 79 mL/min (>60); Estimated Creatinine Clearance 61.68 ml/min; Glucose 97 mg/dL (74-106); Potassium 3.7 mmol/L (3.5-5.1); Sodium Level 142 mmol/L (136-145)
--- NOTE | 2023-04-15 07:53 | PN.HOSP_ITS ---
Reason for Visit Reason for Visit: Diagnoses Morbid (severe) obesity due to excess calories (04/12/23) Pneumonia, unspecified organism (04/12/23) Benign prostatic hyperplasia without lower urinary tract symptoms (04/12/23) Weakness (04/12/23) Other specified abnormal findings of blood chemistry (04/12/23) Body mass index [BMI] 40.0-44.9, adult (04/12/23) Subjective Subjective Patient reports feeling better today, is having decreasing oxygen requirements Objective Data Objective Data Vital Signs: Vital Signs Temp Pulse Resp BP Pulse Ox O2 Del Method O2 Flow Rate 97.8 F 50 L 17 103/56 L 100 Bi-pap 5 04/15/23 05:20 04/15/23 07:35 04/15/23 07:35 04/15/23 05:20 04/15/23 07:35 04/15/23 07:35 04/14/23 23:30 FiO2 50 04/15/23 07:35 Oxygen Flow Rate (L/min) 5 Oxygen Delivery Method Bi-pap Weight: 117.055 kg Body Mass Index (BMI) 42.9 Intake & Output: Intake and Output for Last 24 Hours 04/13/23 04/14/23 04/15/23 23:59 23:59 23:59 Intake Total 2098 / 2098 826 / 926 212 / 212 Output Total 2650 / 2650 900 / 900 450 / 450 Balance -552 / -552 -74 / 26 -238 / -238 Lab / Micro Data 04/15/23 06:16 04/15/23 06:16 Labs: Laboratory Results - last 24 hr 04/15/23 06:16: WBC 3.9 L, RBC 3.34 L, Hgb 9.3 L, Hct 30.7 L, MCV 91.9, MCH 27.8, MCHC 30.3 L, RDW Std Deviation 57.7 H, RDW Coeff of Ernst 17.3 H, Plt Count 117 L, MPV 11.0, Immature Gran % (Auto) 0.500, Neut % (Auto) 59.0, Lymph % (Auto) 24.1, [place] % (Auto) 12.8 H, Eos % (Auto) 3.1, Baso % (Auto) 0.5, Absolute Neuts (auto) 2.3, Absolute Lymphs (auto) 0.94, Nucleated RBC % 0, Sodium 142, Potassium 3.7, Chloride 110 H, Carbon Dioxide 29.0, Anion Gap 3 L, BUN 22 H, Creatinine 1.15, Estim Creat Clear Calc 61.68, Est GFR (MDRD) Af Amer 79, Est GFR (MDRD) Non-Af 65, BUN/Creatinine Ratio 19.1, Glucose 97, Calcium 8.4 L Micro: Microbiology 04/14/23 14:40 Sputum, Expectorated/Coughed Gram Stain - Final 04/10/23 10:15 Blood Culture (Wb) - Right Hand Blood Culture - Preliminary No growth in 48 hours. 04/10/23 09:40 Blood Culture (Wb) - Anticubital Right Blood Culture - Preliminary No growth in 48 hours. 04/10/23 18:17 Urine, Random Legionella Antigen - Final 04/10/23 18:17 Urine, Random Streptococcus pneumoniae Antigen (M - Final 04/10/23 11:37 Mucosa - Nasopharyngeal Respiratory Panel (PCR) - Final 04/10/23 08:45 Mucosa - Nose SARS-CoV-2, Influenza & RSV (PCR) - Final Radiography Diagnostic Testing: Radiology Impression Echocardiogram 04/14/23 13:36 Interpretation Summary The estimated ejection fraction is 55-60 %. Contrast echo used using Definity Comparing to previous echo mild aortic incompetence noted. LV function remains similar. Ordering Physician: Kiarra Valdez Referring Physician: MD Simi Eliud Performed By: Gaby Shin RDCS Physical Exam Narrative General: Alert, no apparent distress HEENT: Atraumatic Eyes: Anicteric, normal conjunctiva, extraocular movements grossly intact Neck: Supple Respiratory: Transmitted upper airway sounds, somewhat decreased bilaterally, no increased work of breathing Cardiovascular: Regular rate GI: Soft, nontender, nondistended Extremities: Somewhat improved lower extremity edema Musculoskeletal: Moving all extremities Neuro: Generalized weakness with left upper extremity contraction, left extremity weaker compared to right and left-sided facial droop Skin: Diffuse bruising Psych: Cooperative Assessment & Plan Assessment/Plan (1) Pneumonia: (2) Weakness: (3) Elevated serum creatinine: (4) BPH (benign prostatic hyperplasia): (5) Morbid obesity with BMI of 40.0-44.9, adult: PLAN: Plan #?Pneumonia and acute hypoxia -Community-acquired versus aspiration -Imaging: Chest x-ray suggestive of infiltrates -DuoNebs and as needed albuterol -Sputum culture, COVID and flu, respiratory panel -Urine antigens -Mucinex, I/S -Rocephin and azithromycin -Consult speech -04/11: Speech evaluated, swallowing study with mild dysphagia, compensatory strategies recommended by speech and reviewed, Legionella and strep pneumo negative, COVID and respiratory panels negative, patient on Rocephin and azithromycin, continue nebs and Mucinex. Patient and family requesting pulmonary consult, pulm consult placed per their request and it was advised to transition antibiotics to Unasyn with Augmentin at discharge for 7 days total therapy and to follow-up with pulmonology on outpatient basis -04/12: Patient went to 85% on NIPPV overnight and received dose of Lasix, chest x-ray unremarkable at that time, suspect that he had transmitted upper airway sounds as per previous and was not fluid overloaded given normal BNP, pH was 7.46 on ABG with a pO2 of 72 on BiPAP, sats did improve with supportive care, continue Unasyn, Mucinex, nebs, speech/feeding modifications. Did discuss desats with pulm and its suspected patient may need additional O2 with CPAP overnight, will try 2 L tonight and assess for desats -04/13: Patient initially did okay overnight however when taken off of NIPPV this morning he desaturated, chest x-ray really not much different from previous, had to be placed back on BiPAP, ABG did reveal hypoxia, reevaluated by pulm, patient to use CoughAssist device, continuing present antibiotics and management, spoke with speech and patient did fairly well with a swallow eval but there is still concern for aspiration and the queried if that it could be esophageal component, after discussing it was ultimately recommended the GI consulted for evaluation -04/14: Has alternated between BiPAP and high flow, weaning O2 as tolerated, GI evaluation to see if there may be esophageal pathology leading to patient aspirating independent of his ability to swallow, continuing Unasyn, nebs, Mucinex, cough purchasing assistant device, will discuss possible echo and further evaluation from that aspect with family -04/15: Will add daily weights and I's and O's, dose of Lasix did seem to help oxygen saturations though echo unremarkable did not comment on diastolic function or pulmonary artery pressures so still possible that there is cardiac component. Oxygen is being weaned. EGD timing per GI #Dehydration- resolved -Gentle IV fluids -04/11: Status post fluids, kidney function stable -04/12: Worsened kidney function, urine studies, kidney and bladder ultrasound indeterminant and noted mild hydronephrosis or pelviectasis of left kidney but recommended repeat study or CT, hesitant to lie patient flat, will perform postvoid to verify patient not retaining and will repeat ultrasound in the a.m. -04/13: Stable #Pancytopenia -Unclear etiology, all cell lines down slightly after fluids, may need outpatient follow-up if counts do not recover after acute illness -04/12: Virtually identical to yesterday, likely outpatient follow-up -04/13: Similar to previous -04/14: Platelets improving -04/15: Has remained stable #Generalized weakness and falls -Treat underlying illness -PT/OT -CM/SW -CT head and cervical spine without acute process -No urinary symptoms and other explanation for weakness and sx so UA not checked -04/11: Continue to treat underlying problem, PT/OT, confounded by patient's chronic left-sided deficits -04/12: Patient does require significant assistance but family does not want patient to go to facility and wants patient to go home on d/c -04/14: Patient likely for SNF once medically stable -04/15: Up to chair as able, plan for placement once medically able to do so # Seizure disorder -Continue Keppra # History of CVA with residual left-sided weakness -Continue home medications # Chronic BPH with obstruction -Chronically on tamsulosin, will continue #Morbid obesity -BMI 40.6 kg/m? -Complicates treatment, prognosis, outcomes -Recommend weight loss and lifestyle changes #DVT ppx: Davy Valdez MD Time spent in the patient's overall evaluation,decision-making process, review of diagnostic data, adjustment of management, discussion with other providers, nursing nursing and ancillary staff involved in patient's care documentation, 40 minutes Charges/Coding Visit Charges Inpatient E&M: 11906 Subs Hosp L2
[2023-04-15] MEDS: Menthol/Lanolin/Calamine/Znox 113 GM Tube 1 APPLIC TOPICAL ×2 (11:47→22:41)
[2023-04-15] MEDS: APIXABAN 5 MG TABLET PO ×2 (11:48→22:41)
[2023-04-15] MEDS: guaiFENesin 1,200 MG Tablet 1200 MG PO ×2 (11:48→22:45)
[2023-04-15] MEDS: levETIRAcetam 500 MG Tablet PO ×2 (11:48→22:45)
[2023-04-15] MEDS: Miconazole Nitrate 43 GM Bottle 1 APPLIC TOPICAL ×2 (11:56→22:46)
[2023-04-15] MEDS: Tamsulosin HCl 0.4 MG Capsule 0.400000000000000022 MG PO (16:45)
[2023-04-15] MEDS: Atorvastatin Calcium 80 MG Tablet 40 MG PO (22:46)
[2023-04-16] VITALS (17 sets, daily range): BP systolic 100–127; BP diastolic 62–78; PULSE 46–73; RESP 10–38; TEMP 35.6–36.4; O2SAT 91–100
[2023-04-16] MEDS: Ipratropium/Albuterol Sulfate 3 ML AMPUL.NEB INHALATION ×4 (01:53→19:36)
[2023-04-16 05:16] LABS: Absolute Lymphocyte Count 0.73 X10^3/uL (0.83-4.51); Absolute Neutrophil Count 2.3 X10^3/uL (2.0-7.7); Basophil# 0.02 X10^3/uL; Basophil% 0.6 % (0-1); Eosinophil# 0.13 X10^3/uL; Eosinophils% 3.7 % (0-5); Hematocrit 30.1 % (40-54); Hemoglobin 9.3 g/dL (13.0-16.5); Lymphocyte # 0.73 X10^3/ul (0.83-4.51); Lymphocyte % 20.9 % (19-41); Mean Corp Hgb Conc 30.9 g/dL (32-36); Mean Corpuscular Hgb 28.6 pg (27.0-32.0); Mean Corpuscular Volume 92.6 fL (80-94); Mean Platelet Vol. 10.6 fl (6.2-12.0); Monocyte# 0.31 X10^3/uL; Monocyte% 8.9 % (0-10); NRBC Flagged by Analyzer 0 % (0-5); Neutrophil % 65.6 % (47-70); Platelet Count 127 K/mm3 (150-450); RBC Distribution Width CV 17.3 % (11.6-14.6); RBC Distribution Width SD 58.3 fl (35.1-43.9); Red Blood Count 3.25 M/mm3 (4.6-6.2); White Blood Count 3.5 K/mm3 (4.4-11.0)
[2023-04-16 05:41] LABS: Anion Gap 1 (5-15); BUN 19 mg/dL (7-18); BUN/Creat Ratio 20.9 RATIO (10-20); Calcium,Total 8.2 mg/dL (8.5-10.1); Chloride 111 mmol/L (98-107); Creatinine, Serum 0.91 mg/dL (0.70-1.30); EST Glomerular Filtration Rate 85 mL/min (>60); Est Glom Filt Rate - Afr Amer 103 mL/min (>60); Estimated Creatinine Clearance 77.95 ml/min; Glucose 98 mg/dL (74-106); Potassium 3.6 mmol/L (3.5-5.1); Sodium Level 142 mmol/L (136-145)
[2023-04-16] MEDS: Ampicillin/Sulbactam 3 GM in 0.9% Normal Saline (100mL MB+) 100 ML IV ×4 (06:36→23:19)
--- NOTE | 2023-04-16 07:55 | PN.HOSP_ITS ---
Reason for Visit Reason for Visit: Diagnoses Morbid (severe) obesity due to excess calories (04/12/23) Pneumonia, unspecified organism (04/12/23) Benign prostatic hyperplasia without lower urinary tract symptoms (04/12/23) Weakness (04/12/23) Other specified abnormal findings of blood chemistry (04/12/23) Body mass index [BMI] 40.0-44.9, adult (04/12/23) Subjective Subjective Patient continues to improve, feeling better today, O2 being weaned Objective Data Objective Data Vital Signs: Vital Signs Temp Pulse Resp BP Pulse Ox O2 Del Method O2 Flow Rate 96.1 F L 54 L 14 109/72 98 Bi-pap 3.5 04/16/23 03:36 04/16/23 05:30 04/16/23 05:30 04/16/23 03:36 04/16/23 05:30 04/16/23 03:38 04/15/23 22:50 FiO2 30 04/16/23 05:30 Oxygen Flow Rate (L/min) 3.5 Oxygen Delivery Method Bi-pap Weight: 117.055 kg Body Mass Index (BMI) 42.9 Intake & Output: Intake and Output for Last 24 Hours 04/14/23 04/15/23 04/16/23 23:59 23:59 23:59 Intake Total 826 / 926 1060 / 1160 312 / 312 Output Total 900 / 900 1350 / 1410 210 / 210 Balance -74 / -290 / -250 102 / 102 Lab / Micro Data 04/16/23 04:55 04/16/23 04:55 Labs: Laboratory Results - last 24 hr 04/16/23 04:55: WBC 3.5 L, RBC 3.25 L, Hgb 9.3 L, Hct 30.1 L, MCV 92.6, MCH 28.6, MCHC 30.9 L, RDW Std Deviation 58.3 H, RDW Coeff of Ernst 17.3 H, Plt Count 127 L, MPV 10.6, Immature Gran % (Auto) 0.300, Neut % (Auto) 65.6, Lymph % (Auto) 20.9, [place] % (Auto) 8.9, Eos % (Auto) 3.7, Baso % (Auto) 0.6, Absolute Neuts (auto) 2.3, Absolute Lymphs (auto) 0.73 L, Nucleated RBC % 0, Sodium 142, Potassium 3.6, Chloride 111 H, Carbon Dioxide 30.0, Anion Gap 1 L, BUN 19 H, Creatinine 0.91, Estim Creat Clear Calc 77.95, Est GFR (MDRD) Af Amer 103, Est GFR (MDRD) Non-Af 85, BUN/Creatinine Ratio 20.9 H, Glucose 98, Calcium 8.2 L Micro: Microbiology 04/10/23 10:15 Blood Culture (Wb) - Right Hand Blood Culture - Final No growth in 5 days. 04/10/23 09:40 Blood Culture (Wb) - Anticubital Right Blood Culture - Final No growth in 5 days. 04/14/23 14:40 Sputum, Expectorated/Coughed Gram Stain - Final 04/10/23 18:17 Urine, Random Legionella Antigen - Final 04/10/23 18:17 Urine, Random Streptococcus pneumoniae Antigen (M - Final 04/10/23 11:37 Mucosa - Nasopharyngeal Respiratory Panel (PCR) - Final 04/10/23 08:45 Mucosa - Nose SARS-CoV-2, Influenza & RSV (PCR) - Final Physical Exam Narrative General: Alert, no apparent distress HEENT: Atraumatic Eyes: Anicteric, normal conjunctiva, extraocular movements grossly intact Neck: Supple Respiratory: Transmitted upper airway sounds improving, somewhat diminished bilaterally but is improving, no increased work of breathing Cardiovascular: Regular rate GI: Soft, nontender, nondistended Extremities: Somewhat improved lower extremity edema Musculoskeletal: Moving all extremities Neuro: Generalized weakness with left upper extremity contraction, left extremity weaker compared to right and left-sided facial droop Skin: Diffuse bruising Psych: Cooperative Assessment & Plan Assessment/Plan (1) Pneumonia: (2) Weakness: (3) Elevated serum creatinine: (4) BPH (benign prostatic hyperplasia): (5) Morbid obesity with BMI of 40.0-44.9, adult: PLAN: Plan #?Pneumonia and acute hypoxia -Community-acquired versus aspiration -Imaging: Chest x-ray suggestive of infiltrates -DuoNebs and as needed albuterol -Sputum culture, COVID and flu, respiratory panel -Urine antigens -Mucinex, I/S -Rocephin and azithromycin -Consult speech -04/11: Speech evaluated, swallowing study with mild dysphagia, compensatory strategies recommended by speech and reviewed, Legionella and strep pneumo ne gative, COVID and respiratory panels negative, patient on Rocephin and azithromycin, continue nebs and Mucinex. Patient and family requesting pulmonary consult, pulm consult placed per their request and it was advised to transition antibiotics to Unasyn with Augmentin at discharge for 7 days total therapy and to follow-up with pulmonology on outpatient basis -04/12: Patient went to 85% on NIPPV overnight and received dose of Lasix, chest x-ray unremarkable at that time, suspect that he had transmitted upper airway sounds as per previous and was not fluid overloaded given normal BNP, pH was 7.4 6 on ABG with a pO2 of 72 on BiPAP, sats did improve with supportive care, continue Unasyn, Mucinex, nebs, speech/feeding modifications. Did discuss desats with pulm and its suspected patient may need additional O2 with CPAP overnight, will try 2 L tonight and assess for desats -04/13: Patient initially did okay overnight however when taken off of NIPPV this morning he desaturated, chest x-ray really not much different from previous, had to be placed back on BiPAP, ABG did reveal hypoxia, reevaluated by pulm, patient to use CoughAssist device, continuing present antibiotics and management, spoke with speech and patient did fairly well with a swallow eval but there is still concern for aspiration and the queried if that it could be esophageal component, after discussing it was ultimately recommended the GI consulted for evaluation -04/14: Has alternated between BiPAP and high flow, weaning O2 as tolerated, GI evaluation to see if there may be esophageal pathology leading to patient aspir ating independent of his ability to swallow, continuing Unasyn, nebs, Mucinex, cough program assistant device, will discuss possible echo and further evaluation from that aspect with family -04/15: Will add daily weights and I's and O's, dose of Lasix did seem to help oxygen saturations though echo unremarkable did not comment on diastolic function or pulmonary artery pressures so still possible that there is cardiac component. Oxygen is being weaned. EGD timing per GI -04/16: Patient remains on Unasyn, Mucinex, DuoNebs, incentive spirometry, oxygen being weaned, continues to improve #Dehydration- resolved -Gentle IV fluids -04/11: Status post fluids, kidney function stable -04/12: Worsened kidney function, urine studies, kidney and bladder ultrasound indeterminant and noted mild hydronephrosis or pelviectasis of left kidney but recommended repeat study or CT, hesitant to lie patient flat, will perform postvoid to verify patient not retaining and will repeat ultrasound in the a.m. -04/13: Stable #Pause on telemetry -04/15:Reviewed telemetry and there were several pauses, one 3 second and a cou ple that were roughly 2 seconds, currently NSR w/ HR 60's. Pt asymptomatic, discussed w/ pt and at bedside regarding the pauses and utility of cardiology c/s, at this time given <4s and no symptoms (Additionally sounded as though he was sleeping off cpap when they happened) do not think urgent cardiology c/s warranted, pt and verbalized their understanding of the plan. At this time NSR and no abn on tele, no block appreciated on admission EKG. If any sx or longer duration can c/s cardiology and pursue further w/ and treatment at that time. Will continue to monitor on telemetry -04/16: Monitoring on telemetry, echo obtained this admission unremarkable, patient remains asymptomatic, this a.m. patient has had no further pauses, continue to monitor electrolytes #Pancytopenia -Unclear etiology, all cell lines down slightly after fluids, may need outpatient follow-up if counts do not recover after acute illness -04/12: Virtually identical to yesterday, likely outpatient follow-up -04/13: Similar to previous -04/14: Platelets improving -04/15: Has remained stable -04/16: Still stable, can consider outpatient follow-up #Generalized weakness and falls -Treat underlying illness -PT/OT -CM/SW -CT head and cervical spine without acute process -No urinary symptoms and other explanation for weakness and sx so UA not checked -04/11: Continue to treat underlying problem, PT/OT, confounded by patient's chronic left-sided deficits -04/12: Patient does require significant assistance but family does not want patient to go to facility and wants patient to go home on d/c -04/14: Patient likely for SNF once medically stable -04/15: Up to chair as able, plan for placement once medically able to do so -04/16: Increase activity as tolerated, patient will need placement # Seizure disorder -Continue Keppra # History of CVA with residual left-sided weakness -Continue home medications -04/16: PT/OT # Chronic BPH with obstruction -Chronically on tamsulosin, will continue #Morbid obesity -BMI 40.6 kg/m? -Complicates treatment, prognosis, outcomes -Recommend weight loss and lifestyle changes #DVT ppx: Davy Valdez MD Time spent in the patient's overall evaluation,decision-making process, review of diagnostic data, adjustment of management, discussion with other providers, nursing nursing and ancillary staff involved in patient's care documentation, 41 minutes Charges/Coding Visit Charges Inpatient E&M: 41351 Subs Hosp L2
[2023-04-16] MEDS: Miconazole Nitrate 43 GM Bottle 1 APPLIC TOPICAL ×2 (10:21→22:55)
[2023-04-16] MEDS: levETIRAcetam 500 MG Tablet PO ×2 (10:21→22:57)
[2023-04-16] MEDS: guaiFENesin 1,200 MG Tablet 1200 MG PO ×2 (10:21→22:57)
[2023-04-16] MEDS: Menthol/Lanolin/Calamine/Znox 113 GM Tube 1 APPLIC TOPICAL ×2 (10:21→22:56)
[2023-04-16] MEDS: APIXABAN 5 MG TABLET PO ×2 (10:21→22:57)
[2023-04-16] MEDS: Furosemide 20 MG/2 ML VIAL IV (12:21)
[2023-04-16] MEDS: 0.9% Normal Saline (250mL Bag) 250 ML 15 ML IV (12:26)
[2023-04-16] MEDS: Tamsulosin HCl 0.4 MG Capsule 0.400000000000000022 MG PO (16:29)
[2023-04-16] MEDS: Atorvastatin Calcium 80 MG Tablet 40 MG PO (22:57)
[2023-04-17] VITALS (10 sets, daily range): BP systolic 91–124; BP diastolic 53–87; PULSE 60–75; RESP 16–20; TEMP 36.8–37.2; O2SAT 89–96; BMI 42.5
[2023-04-17] MEDS: Ipratropium/Albuterol Sulfate 3 ML AMPUL.NEB INHALATION ×3 (02:10→19:26)
--- NOTE | 2023-04-17 02:33 | CPS ---
PATIENT REFUSED PAP THERAPY FOR THE NIGHT ON 4L 96%
[2023-04-17] MEDS: Ampicillin/Sulbactam 3 GM in 0.9% Normal Saline (100mL MB+) 100 ML IV ×4 (05:27→23:12)
[2023-04-17 06:28] LABS: Absolute Lymphocyte Count 0.58 X10^3/uL (0.83-4.51); Absolute Neutrophil Count 3.8 X10^3/uL (2.0-7.7); Basophil# 0.01 X10^3/uL; Basophil% 0.2 % (0-1); Eosinophil# 0.08 X10^3/uL; Eosinophils% 1.7 % (0-5); Hematocrit 29.9 % (40-54); Hemoglobin 9.3 g/dL (13.0-16.5); Lymphocyte # 0.58 X10^3/ul (0.83-4.51); Lymphocyte % 12.1 % (19-41); Mean Corp Hgb Conc 31.1 g/dL (32-36); Mean Corpuscular Hgb 28.2 pg (27.0-32.0); Mean Corpuscular Volume 90.6 fL (80-94); Mean Platelet Vol. 10.9 fl (6.2-12.0); Monocyte# 0.32 X10^3/uL; Monocyte% 6.7 % (0-10); NRBC Flagged by Analyzer 0 % (0-5); Neutrophil # 3.79 X10^3/uL (2.7-7.7); Neutrophil % 79.1 % (47-70); POSITIVE DIFFERENTIAL YES; Platelet Count 156 K/mm3 (150-450); RBC Distribution Width CV 17.2 % (11.6-14.6); RBC Distribution Width SD 56.8 fl (35.1-43.9); White Blood Count 4.8 K/mm3 (4.4-11.0)
[2023-04-17 06:56] LABS: Anion Gap 6 (5-15); BUN 16 mg/dL (7-18); BUN/Creat Ratio 16.9 RATIO (10-20); Calcium,Total 8.2 mg/dL (8.5-10.1); Chloride 109 mmol/L (98-107); Creatinine, Serum 0.95 mg/dL (0.70-1.30); EST Glomerular Filtration Rate 81 mL/min (>60); Est Glom Filt Rate - Afr Amer 99 mL/min (>60); Estimated Creatinine Clearance 74.25 ml/min; Glucose 92 mg/dL (74-106); Magnesium 2.2 mg/dL (1.6-2.6); Potassium 3.4 mmol/L (3.5-5.1); Sodium Level 142 mmol/L (136-145)
[2023-04-17 07:04] LABS: Differential Indicated SCAN CRITERIA MET
[2023-04-17 07:10] LABS: Anisocytosis 1+
--- NOTE | 2023-04-17 08:44 | CASEMGMT ---
Social work Pt declined for TCU and rehab. Referral will be made to [facility] today. NAVARRO Ortega
[2023-04-17] MEDS: Miconazole Nitrate 43 GM Bottle 1 APPLIC TOPICAL ×2 (08:57→22:46)
[2023-04-17] MEDS: Menthol/Lanolin/Calamine/Znox 113 GM Tube 1 APPLIC TOPICAL ×2 (08:57→22:47)
[2023-04-17] MEDS: APIXABAN 5 MG TABLET PO ×2 (08:58→22:46)
[2023-04-17] MEDS: guaiFENesin 1,200 MG Tablet 1200 MG PO ×2 (08:58→22:46)
[2023-04-17] MEDS: levETIRAcetam 500 MG Tablet PO ×2 (08:58→22:46)
--- NOTE | 2023-04-17 08:59 | WOUNDNOTE ---
wound photo: left forearm
--- NOTE | 2023-04-17 09:54 | CASEMGMT ---
Addendum entered by Sofia Armas 04/18/23 09:27: Precert submitted 04/17/22. Sofia Armas, Discharge Planning Asst. Addendum entered by Sofia Armas 04/17/23 10:25: [facility] accepted patient. Precert not started. SW updated. Sofia Armas, Discharge Planning Asst. Original Note: Discharge Planning Referral sent to [facility] via [facility]. Sofia Armas, Discharge Planning Asst.
--- NOTE | 2023-04-17 11:08 | CASEMGMT ---
Social Work tacho [employer] mission planner, sent referral to [facility]. They did accept pt, they will start precert closer to when pt is ready to be discharged. SW met w/pt's Valerie in room. SW let her know that TCU and rehab would not be able to take pt, but the transitional unit in [place] can take pt. agreeable but then also spoke about just taking pt home. She expressed frustration w/the hospital and situation. She states does not understand why pt is still here, and also why she can't just take him home, states she takes care of him at home. SW gently explained to that pt is not moving as well as he does at home. continues to express frustration w/not understanding what is going on w/pt. She states if he is not discharged by Monday she will get help to just bring pt home. SW offered to call doctor to see if she can come speak to , she states would rather do this when her daughter is here. SW also offered to call pt advocate for her, she again states would rather wait until her daughter is here. SW asked her to let staff know if she would like to speak w/the pt advocate. SW offered support to pt's . did say pt has been to [place] before, aware a precert is needed, and okay w/the precert process being started for [place], Sofia carranza/slick mission planner will ask them to start it when appropriate. SW will continue to follow. Plan will be for the [facility] unless pt's takes pt home [place]. NAVARRO Ortega
--- NOTE | 2023-04-17 13:46 | PN_ITS ---
Subjective Subjective Patient seen and examined. He had no active complaints. He admits to coughing but is not able to expectorate. Patient looks very uncomfortable. He had a very moist cough but was not able to expectorate. He is on 4 L of oxygen. REview of systems is otherwise negative. Objective Data Objective Data Vital Signs: Vital Signs Temp Pulse Resp BP Pulse Ox O2 Del Method O2 Flow Rate 98.5 F 61 18 108/64 96 Nasal Cannula 4 04/17/23 08:54 04/17/23 10:55 04/17/23 08:54 04/17/23 10:55 04/17/23 08:54 04/17/23 08:54 04/17/23 08:59 FiO2 30 04/16/23 15:00 Oxygen Flow Rate (L/min) 4 Oxygen Delivery Method Nasal Cannula Weight: 255 lb 8.252 oz Body Mass Index (BMI) 42.5 Intake & Output: Intake and Output for Last 24 Hours 04/15/23 04/16/23 04/17/23 23:59 23:59 23:59 Intake Total 1060 / 1160 1262 / 1462 636 / 636 Output Total 1350 / 1410 1710 / 2260 550 / 550 Balance -290 / -250 -448 / -798 86 / 86 Lab / Micro Data 04/17/23 05:56 04/17/23 05:56 Labs: Laboratory Results - last 24 hr 04/17/23 05:56: WBC 4.8, RBC 3.30 L, Hgb 9.3 L, Hct 29.9 L, MCV 90.6, MCH 28.2, MCHC 31.1 L, RDW Std Deviation 56.8 H, RDW Coeff of Ernst 17.2 H, Plt Count 156, MPV 10.9, Immature Gran % (Auto) 0.200, Neut % (Auto) 79.1 H, Lymph % (Auto) 1 2.1 L, [place] % (Auto) 6.7, Eos % (Auto) 1.7, Baso % (Auto) 0.2, Absolute Neuts (auto) 3.8, Absolute Lymphs (auto) 0.58 L, Nucleated RBC % 0, Anisocytosis 1+, Sodium 142, Potassium 3.4 L, Chloride 109 H, Carbon Dioxide 27.0, Anion Gap 6, BUN 16, Creatinine 0.95, Estim Creat Clear Calc 74.25, Est GFR (MDRD) Af Amer 99, Est GFR (MDRD) Non-Af 81, BUN/Creatinine Ratio 16.9, Glucose 92, Calcium 8.2 L, Phosphorus 3.0, Magnesium 2.2 Micro: Microbiology 04/14/23 14:40 Sputum, Expectorated/Coughed Gram Stain - Final 04/14/23 14:40 Sputum, Expectorated/Coughed Respiratory Culture - Final Mixed normal respiratory loida. No Streptococcus pneumoniae, beta-hemolytic Streptococcus or Staphylococcus aureus isolated. 04/10/23 10:15 Blood Culture (Wb) - Right Hand Blood Culture - Final No growth in 5 days. 04/10/23 09:40 Blood Culture (Wb) - Anticubital Right Blood Culture - Final No growth in 5 days. 04/10/23 18:17 Urine, Random Legionella Antigen - Final 04/10/23 18:17 Urine, Random Streptococcus pneumoniae Antigen (M - Final 04/10/23 11:37 Mucosa - Nasopharyngeal Respiratory Panel (PCR) - Final 04/10/23 08:45 Mucosa - Nose SARS-CoV-2, Influenza & RSV (PCR) - Final Physical Exam Const alert, no apparent distress and well nourished Constitutional Narrative: obese General Appearance: cooperative and well developed HEENT normocephalic, head/scalp atraumatic and moist oral mucous membranes Eyes PERRL and EOMs intact bilaterally Neck no lymphadenopathy and supple Lymph Lymphatic: no lymphadenopathy noted and no lymphedema noted Resp Resp Narrative: Has coarse crackles bilaterally in all lung mayes. On 4 L of oxygen. Diminished breath sounds bibasilarly. Cardio regular rate, regular rhythm, S1 normal heart sound, S2 normal heart sound and no murmurs GI normal to inspection, nondistended, normoactive bowel sounds, soft to palpation, non-tender and non-distended Extremity normal capillary refill, no clubbing, cyanosis or edema and no calf tenderness General Extremity: no tenderness to palpation of joints or extremities Skin General Skin Exam: no breakdown Neuro CN's II-XII intact bilaterally, no focal motor deficits, no sensory deficits noted and deep tendon reflexes 2+ bilaterally Motor Exam: strength 5/5 throughout and general weakness Psych thought process normal, cooperative and affect normal Appearance: appropriate Assessment & Plan Assessment/Plan (1) Pneumonia: (2) Weakness: PLAN: Plan #Hypoxia due to pneumonia * Pneumonia thought to be community-acquired versus aspiration. * On 4L of oxygen. Still has coarse crackles in all lung mayes. Speech therapy evaluated patient and he had a swallowing study which showed mild dysphagia. * Pulmonology on board per Family request. * Was on IV ceftriaxone and azithromycin, and now on IV unasyn * breathing treatment with bronchodilators * titrate oxygen to maintain laureen >90% * required BIPAP intermittently during the admission * to switch to PO augmentin at discharge. * urine for strep and legionella negative * #Dehydration: resolved. #Teleemtry pauses; resolved. Echo was unremarkable. #Pancytopenia: to follow up on outpatient basis #Debility and weakness due to mechanical falls * PT/OT on board. Fall prautions. #Hypokalemia: K is 3.4. Will replace and trend. #Seizure disorder: on Keppra #History of CVA with left sided residual weakness: PT/OT on board. Fall precautions #Chronic BPH with obstruction: on flomax #Mobid obesity: complicates acute care, expected recovery and prognosis DVT prophylaxis: on eliquis Disposition: needs precert to be dc'd to SNF Charges/Coding Visit Charges Inpatient E&M: 09068 Subs Hosp L2
--- NOTE | 2023-04-17 14:46 | CPS ---
pt did not want to do the cough assist
--- NOTE | 2023-04-17 16:14 | NURSING ---
Per Dr. Naylor, she was unable to reach pt spouse via telephone, states to reach out to spouse and let her know that MD will be rounding on Monday somewhere between the hours of [phone] so spouse can talk with md at that time. Said nurse phoned pt spouse Valerie at number listed in demographics sheet, no answer just a voicemail for karolinamari and informed of above information per MD.
[2023-04-17] MEDS: Tamsulosin HCl 0.4 MG Capsule 0.400000000000000022 MG PO (17:30)
[2023-04-17] MEDS: Atorvastatin Calcium 80 MG Tablet 40 MG PO (22:46)
--- NOTE | 2023-04-17 23:24 | CPS ---
Patient refused PAP therapy at this time
[2023-04-18] VITALS (21 sets, daily range): BP systolic 97–121; BP diastolic 57–76; PULSE 47–66; RESP 12–20; TEMP 36.4–37; O2SAT 87–99; BMI 42.5
[2023-04-18] MEDS: Ipratropium/Albuterol Sulfate 3 ML AMPUL.NEB INHALATION ×4 (00:29→20:38)
[2023-04-18] MEDS: Ampicillin/Sulbactam 3 GM in 0.9% Normal Saline (100mL MB+) 100 ML IV ×2 (05:36→13:58)
[2023-04-18 06:52] LABS: Absolute Lymphocyte Count 0.91 X10^3/uL (0.83-4.51); Absolute Neutrophil Count 2.1 X10^3/uL (2.0-7.7); Basophil# 0.02 X10^3/uL; Basophil% 0.6 % (0-1); Eosinophil# 0.07 X10^3/uL; Eosinophils% 2.1 % (0-5); Hematocrit 28.8 % (40-54); Hemoglobin 8.8 g/dL (13.0-16.5); Lymphocyte # 0.91 X10^3/ul (0.83-4.51); Lymphocyte % 26.8 % (19-41); Mean Corp Hgb Conc 30.6 g/dL (32-36); Mean Corpuscular Volume 91.7 fL (80-94); Mean Platelet Vol. 10.6 fl (6.2-12.0); Monocyte# 0.33 X10^3/uL; Monocyte% 9.7 % (0-10); NRBC Flagged by Analyzer 0 % (0-5); Neutrophil # 2.05 X10^3/uL (2.7-7.7); Neutrophil % 60.5 % (47-70); Platelet Count 148 K/mm3 (150-450); RBC Distribution Width CV 17.3 % (11.6-14.6); RBC Distribution Width SD 57.5 fl (35.1-43.9); Red Blood Count 3.14 M/mm3 (4.6-6.2); White Blood Count 3.4 K/mm3 (4.4-11.0)
[2023-04-18 07:20] LABS: Anion Gap 4 (5-15); BUN 15 mg/dL (7-18); BUN/Creat Ratio 14.3 RATIO (10-20); Calcium,Total 8.2 mg/dL (8.5-10.1); Chloride 111 mmol/L (98-107); Creatinine, Serum 1.05 mg/dL (0.70-1.30); EST Glomerular Filtration Rate 72 mL/min (>60); Est Glom Filt Rate - Afr Amer 88 mL/min (>60); Estimated Creatinine Clearance 67.15 ml/min; Glucose 89 mg/dL (74-106); Potassium 2.9 mmol/L (3.5-5.1); Sodium Level 142 mmol/L (136-145)
[2023-04-18] MEDS: levETIRAcetam 500 MG Tablet PO ×2 (08:30→19:34)
[2023-04-18] MEDS: guaiFENesin 1,200 MG Tablet 1200 MG PO ×2 (08:30→19:34)
[2023-04-18] MEDS: APIXABAN 5 MG TABLET PO ×2 (08:30→19:34)
[2023-04-18] MEDS: Miconazole Nitrate 43 GM Bottle 1 APPLIC TOPICAL ×2 (08:31→19:33)
[2023-04-18] MEDS: Menthol/Lanolin/Calamine/Znox 113 GM Tube 1 APPLIC TOPICAL ×2 (08:31→19:34)
--- NOTE | 2023-04-18 08:41 | NURSING ---
sent greenhouse transplanter Gale: Kala Campbell: Dr. Naylor said wants to send to [facility]. on 8L [facility] Full code. Julia
[2023-04-18] MEDS: Potassium Chloride 10mEq/100mL 10 MEQ/100 ML IV.SOLN. 100 MEQ IV BOLUS ×4 (08:43→12:57)
--- NOTE | 2023-04-18 09:00 | NURSING ---
talked with respiratory therapist about starting the chest physiotherapy glenna as discussed with Dr. Naylor. supervisor calibration notified had discussed transfer to pcu with Dr. Naylor in relation to bed status. aware ok to wait for bed to open up on pcu before moving instead of moving to ICU as pcu patient. primary RN updated.
--- NOTE | 2023-04-18 11:23 | NURSING ---
primary RN Corina informed per house builder pt will go to 101 when clean. primary RN to call report.
--- NOTE | 2023-04-18 11:49 | NURSING ---
into room as requested by primary RN as bedside and raising voice, being agressive and hostile. attempted to have a conversation with pt's regarding poc of patient. continues to yell at staff, attempted deesculation techniques. pt's on phone with pt's daughter, pt's daughter yelling and stating she going to come in and let us have it Daughter with aggressive language on phone. aware primary RN already attempted to contact dr. atkins via page instead of text to come talk with . pt's continues to be hostile. explained nursing staff is attempting to assist her, pt's informed we are waiting on Dr. Atkins to come talk with her regarding POC. pt's continues to be hostile accusing staff of just wanting to send him to a penitentiary. stating she will remove patient and take him some where else. reassured if those are their wishes we can discuss that with Dr. Atkins. offered to have pt advocate come talk with her. Did inform pt's if daughter comes in with aggression security will be called. This nurse out to desk texted Dr. Atkins again to come talk with pt's . updated her on security being informed of pt's daughter's threats and requested to come to unit. Dr. Atkins returned call and updated on 's complaints and this nurse's request that she come talk with pt's . boardinghouse keeper Gale updated. security and HRO to unit as front doors were locked down after daughter's phone call. Security in to talk with pt's , then found pt's daughter at front doors. talked with daughter before letting her into the room. pt advocate to unit to talk with pt//daughter. 1154 Dr. Atkins updated that family is here. security has them calmed down and waiting for you. 1214 Dr. Atkins to unit to talk with pt//daughter and pt's advocate.
--- NOTE | 2023-04-18 11:50 | NURSING ---
Nurse called to room to speak to family. Educated pt and that potassium and antibiotics are being given for pneumonia and potassium needs replaced. is getting aggressive tone, raising voice, and hostile that we are doing nothing for him and he should not be getting worse. Another RN brought to room to help deescalate states daughter is coming and threatening to be aggressive. MD paged to speak to patient and family and security called to room and bedside
--- NOTE | 2023-04-18 12:28 | NURSING ---
talked with Mirta PCU charge nurse, informed of current situation, including Dr. Naylor still talking with family/pt/pt advocate. Mirta RN, to let us know when PCU 101 is clean.
--- NOTE | 2023-04-18 12:31 | CASEMGMT ---
Discharge Planning Updates sent to [facility] via [employer]. Sofia Armas, Discharge Planning Asst.
--- NOTE | 2023-04-18 13:25 | NURSING ---
pt transported to PCU 101 on tele monitor, 8L [place] O2 with Primary RN and keren marie RN
--- NOTE | 2023-04-18 15:21 | PN_ITS ---
Subjective Subjective Patient seen and examined. He was much more alert and communicative today. He had no active complaints. Patient still coughing and his cough is quite weak. His cough is very moist but patient is not able to expectorate. He was taken off of BiPAP to 8 L of oxygen this morning. Review of systems otherwise negat bindu. Objective Data Objective Data Vital Signs: Vital Signs Temp Pulse Resp BP Pulse Ox O2 Del Method O2 Flow Rate 98.6 F 50 L 18 118/57 L 95 Nasal Cannula 6 04/18/23 14:30 04/18/23 14:30 04/18/23 14:30 04/18/23 14:30 04/18/23 14:30 04/18/23 14:30 04/18/23 14:30 FiO2 40 04/18/23 07:55 Oxygen Flow Rate (L/min) 6 Oxygen Delivery Method Nasal Cannula Weight: 255 lb 4.725 oz Body Mass Index (BMI) 42.5 Intake & Output: Intake and Output for Last 24 Hours 04/16/23 04/17/23 04/18/23 23:59 23:59 23:59 Intake Total 1262 / 1462 1255.25 / 1255.25 880.75 / 880.75 Output Total 1710 / 2260 1200 / 1200 250 / 250 Balance -448 / -798 55.25 / 55.25 630.75 / 630.75 Lab / Micro Data 04/18/23 06:30 04/18/23 06:30 Labs: Laboratory Results - last 24 hr 04/18/23 06:30: WBC 3.4 L, RBC 3.14 L, Hgb 8.8 L, Hct 28.8 L, MCV 91.7, MCH 28.0, MCHC 30.6 L, RDW Std Deviation 57.5 H, RDW Coeff of Ernst 17.3 H, Plt Count 148 L, MPV 10.6, Immature Gran % (Auto) 0.300, Neut % (Auto) 60.5, Lymph % (Auto) 26.8, Kings % (Auto) 9.7, Eos % (Auto) 2.1, Baso % (Auto) 0.6, Absolute Neuts (auto) 2.1, Absolute Lymphs (auto) 0.91, Nucleated RBC % 0, Sodium 142, Potassium 2.9 L, Chloride 111 H, Carbon Dioxide 27.0, Anion Gap 4 L, BUN 15, Creatinine 1.05, Estim Creat Clear Calc 67.15, Est GFR (MDRD) Af Amer 88, Est GFR (MDRD) Non-Af 72, BUN/Creatinine Ratio 14.3, Glucose 89, Calcium 8.2 L Micro: Microbiology 04/14/23 14:40 Sputum, Expectorated/Coughed Gram Stain - Final 04/14/23 14:40 Sputum, Expectorated/Coughed Respiratory Culture - Final Mixed normal respiratory loida. No Streptococcus pneumoniae, beta-hemolytic Streptococcus or Staphylococcus aureus isolated. 04/10/23 10:15 Blood Culture (Wb) - Right Hand Blood Culture - Final No growth in 5 days. 04/10/23 09:40 Blood Culture (Wb) - Anticubital Right Blood Culture - Final No growth in 5 days. 04/10/23 18:17 Urine, Random Legionella Antigen - Final 04/10/23 18:17 Urine, Random Streptococcus pneumoniae Antigen (M - Final 04/10/23 11:37 Mucosa - Nasopharyngeal Respiratory Panel (PCR) - Final 04/10/23 08:45 Mucosa - Nose SARS-CoV-2, Influenza & RSV (PCR) - Final Physical Exam Const alert, no apparent distress and well nourished Constitutional Narrative: obese General Appearance: cooperative and well developed HEENT normocephalic, head/scalp atraumatic and moist oral mucous membranes Eyes PERRL and EOMs intact bilaterally Neck no lymphadenopathy and supple Lymph Lymphatic: no lymphadenopathy noted and no lymphedema noted Resp Resp Narrative: Has coarse crackles bilaterally in all lung mayes. On 8 L of oxygen. Diminished breath sounds bibasilarly. Cardio regular rate, regular rhythm, S1 normal heart sound, S2 normal heart sound and no murmurs GI normal to inspection, nondistended, normoactive bowel sounds, soft to palpation, non-tender and non-distended Extremity normal capillary refill, no clubbing, cyanosis or edema and no calf tenderness General Extremity: no tenderness to palpation of joints or extremities Skin General Skin Exam: no breakdown Neuro CN's II-XII intact bilaterally, no focal motor deficits, no sensory deficits noted and deep tendon reflexes 2+ bilaterally Motor Exam: strength 5/5 throughout and general weakness Psych thought process normal, cooperative and affect normal Appearance: appropriate Assessment & Plan Assessment/Plan (1) Pneumonia: (2) Weakness: PLAN: Plan #Hypoxia due to pneumonia * Pneumonia thought to be community-acquired versus aspiration. * On 4L of oxygen. Still has coarse crackles in all lung mayes. Speech therapy evaluated patient and he had a swallowing study which showed mild dysphagia. * patient unable to expectorate. * Pulmonology on board per Family request. * Was on IV ceftriaxone and azithromycin, and now on IV unasyn. * breathing treatment with bronchodilators * titrate oxygen to maintain sats >90% * required BIPAP intermittently during the admission * to switch to PO augmentin at discharge. * urine for strep and legionella negative * I had a very extensive discussion with his * I had an extensive discussion with patient's and daughter today about patient's plan of care. Family was frustrated because they felt that he had been doing well but was not deteriorating. I explained to family that patient was still at risk of aspiration as his cough was very weak and was not able to expectorate. This was leading to his persistently increased oxygen requirements. I counseled family that chest physiotherapy had been ordered and if this did not work, he would need a CoughAssist device. Family expressed understanding. They would want him to go home upon discharge and di d not want him to go to a SNF for rehab. They state they just want him to get to his baseline which was that he could not move from bedside to the commode or from bedside chair. They understand that he is quite debilitated and do not expect that he will improve much. * #Hypokalemia: potassium is 2.9. Will replace and trend. #Dehydration: resolved. #Telemetry pauses: resolved. Echo was unremarkable. #Pancytopenia: to follow up on outpatient basis #Debility and weakness due to mechanical falls * PT/OT on board. Fall precautions. #Hypokalemia: K is 3.4. Will replace and trend. #Seizure disorder: on Keppra #History of CVA with left sided residual weakness: PT/OT on board. 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 Patient transferred to PCU today on account of increasing oxygen requirements. Charges/Coding Visit Charges Inpatient E&M: 15662 Subs Hosp L3
[2023-04-18] MEDS: Tamsulosin HCl 0.4 MG Capsule 0.400000000000000022 MG PO (17:17)
[2023-04-18] MEDS: Atorvastatin Calcium 80 MG Tablet 40 MG PO (19:34)
[2023-04-19] VITALS (8 sets, daily range): BP systolic 97–108; BP diastolic 56–63; PULSE 60–68; RESP 16–20; TEMP 36.4–37; O2SAT 91–97; BMI 42.4
--- NOTE | 2023-04-19 00:20 | CPS ---
Offered bipap to pt . Pt declined.
[2023-04-19] MEDS: Ipratropium/Albuterol Sulfate 3 ML AMPUL.NEB INHALATION ×4 (03:04→18:55)
[2023-04-19] MEDS: Menthol/Lanolin/Calamine/Znox 113 GM Tube 1 APPLIC TOPICAL ×2 (08:38→19:53)
[2023-04-19] MEDS: Miconazole Nitrate 43 GM Bottle 1 APPLIC TOPICAL ×2 (08:38→19:53)
[2023-04-19] MEDS: levETIRAcetam 500 MG Tablet PO ×2 (08:39→19:54)
[2023-04-19] MEDS: guaiFENesin 1,200 MG Tablet 1200 MG PO ×2 (08:39→19:53)
[2023-04-19] MEDS: APIXABAN 5 MG TABLET PO ×2 (08:40→19:54)
--- NOTE | 2023-04-19 12:11 | PN_ITS ---
Subjective Subjective Patient seen and examined. He was alert and communicative and had no complaints. He is on 5 L of oxygen. He states when he coughs he is able to expectorate much better now. He has no other complaints and review of systems otherwise negative. Objective Data Objective Data Vital Signs: Vital Signs Temp Pulse Resp BP Pulse Ox O2 Del Method O2 Flow Rate 98.3 F 63 16 105/58 L 95 Nasal Cannula 5 04/19/23 08:41 04/19/23 08:41 04/19/23 08:41 04/19/23 08:41 04/19/23 08:41 04/19/23 08:41 04/19/23 08:41 FiO2 40 04/18/23 07:55 Oxygen Flow Rate (L/min) 5 Oxygen Delivery Method Nasal Cannula Weight: 254 lb 10.142 oz Body Mass Index (BMI) 42.4 Intake & Output: Intake and Output for Last 24 Hours 04/17/23 04/18/23 04/19/23 23:59 23:59 23:59 Intake Total 1255.25 / 1255.25 1232.75 / 1232.75 240 / 240 Output Total 1200 / 1200 650 / 650 850 / 850 Balance 55.25 / 55.25 582.75 / 582.75 -610 / -610 Lab / Micro Data 04/18/23 06:30 04/18/23 06:30 Micro: Microbiology 04/19/23 09:29 Stool Clostridioides difficile (PCR) - Final 04/14/23 14:40 Sputum, Expectorated/Coughed Gram Stain - Final 04/14/23 14:40 Sputum, Expectorated/Coughed Respiratory Culture - Final Mixed normal respiratory loida. No Streptococcus pneumoniae, beta-hemolytic Streptococcus or Staphylococcus aureus isolated. 04/10/23 10:15 Blood Culture (Wb) - Right Hand Blood Culture - Final No growth in 5 days. 04/10/23 09:40 Blood Culture (Wb) - Anticubital Right Blood Culture - Final No growth in 5 days. 04/10/23 18:17 Urine, Random Legionella Antigen - Final 04/10/23 18:17 Urine, Random Streptococcus pneumoniae Antigen (M - Final 04/10/23 11:37 Mucosa - Nasopharyngeal Respiratory Panel (PCR) - Final 04/10/23 08:45 Mucosa - Nose SARS-CoV-2, Influenza & RSV (PCR) - Final Physical Exam Const alert, no apparent distress and well nourished Constitutional Narrative: obese General Appearance: cooperative and well developed HEENT normocephalic, head/scalp atraumatic and moist oral mucous membranes Eyes PERRL and EOMs intact bilaterally Neck no lymphadenopathy and supple Lymph Lymphatic: no lymphadenopathy noted and no lymphedema noted Resp Resp Narrative: Has coarse crackles bilaterally in all lung mayes. On 8 L of oxygen. Diminish ed breath sounds bibasilarly. Cardio regular rate, regular rhythm, S1 normal heart sound, S2 normal heart sound and no murmurs GI normal to inspection, nondistended, normoactive bowel sounds, soft to palpation, non-tender and non-distended Extremity normal capillary refill, no clubbing, cyanosis or edema and no calf tenderness General Extremity: no tenderness to palpation of joints or extremities Skin General Skin Exam: no breakdown Neuro CN's II-XII intact bilaterally, no focal motor deficits, no sensory deficits noted and deep tendon reflexes 2+ bilaterally Motor Exam: strength 5/5 throughout and general weakness Psych thought process normal, cooperative and affect normal Appearance: appropriate Assessment & Plan Assessment/Plan (1) Pneumonia: (2) Weakness: PLAN: Plan #Hypoxia due to pneumonia * Pneumonia thought to be community-acquired versus aspiration. * On 4L of oxygen. Still has coarse crackles in all lung mayes. Speech therapy evaluated patient and he had a swallowing study which showed mild dysphagia. * patient unable to expectorate. * Pulmonology on board per Family request. * Was on IV ceftriaxone and azithromycin, and was switche to IV unasyn. Has completed a course of antibiotics * breathing treatment with bronchodilators * titrate oxygen to maintain sats >90% * required BIPAP intermittently during the admission * urine for strep and legionella negative * having chest physiotherapy. * #Hypokalemia:potassium level pending today. Will replace as needed nad trend. #Dehydration: resolved. #Telemetry pauses: resolved. Echo was unremarkable. #Pancytopenia: to follow up on outpatient basis #Debility and weakness due to mechanical falls * PT/OT on board. Fall precautions. #Seizure disorder: on Keppra #History of CVA with left sided residual weakness: PT/OT on board. 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 Patient is however very weak and debilitated and will need intensive physical therapy. Charges/Coding Visit Charges Inpatient E&M: 34732 Subs Hosp L2
--- NOTE | 2023-04-19 12:43 | CASEMGMT ---
AVINASH sent updated PT/OT notes to [facility] per their request and let them know he is currently on 5L at rest and with exertion. Nadia Cain MSW TEAGAN
[2023-04-19 13:10] LABS: Absolute Lymphocyte Count 0.61 X10^3/uL (0.83-4.51); Absolute Neutrophil Count 3.7 X10^3/uL (2.0-7.7); Basophil# 0.02 X10^3/uL; Basophil% 0.4 % (0-1); Eosinophil# 0.12 X10^3/uL; Eosinophils% 2.5 % (0-5); Hematocrit 32.6 % (40-54); Hemoglobin 9.7 g/dL (13.0-16.5); Lymphocyte # 0.61 X10^3/ul (0.83-4.51); Lymphocyte % 12.7 % (19-41); Mean Corp Hgb Conc 29.8 g/dL (32-36); Mean Corpuscular Hgb 27.9 pg (27.0-32.0); Mean Corpuscular Volume 93.7 fL (80-94); Mean Platelet Vol. 10.4 fl (6.2-12.0); Monocyte# 0.33 X10^3/uL; Monocyte% 6.9 % (0-10); NRBC Flagged by Analyzer 0 % (0-5); Neutrophil # 3.69 X10^3/uL (2.7-7.7); Neutrophil % 77.1 % (47-70); Platelet Count 174 K/mm3 (150-450); RBC Distribution Width CV 17.2 % (11.6-14.6); RBC Distribution Width SD 58.4 fl (35.1-43.9); Red Blood Count 3.48 M/mm3 (4.6-6.2); White Blood Count 4.8 K/mm3 (4.4-11.0)
[2023-04-19 13:57] LABS: Anion Gap 1 (5-15); BUN 13 mg/dL (7-18); BUN/Creat Ratio 13.2 RATIO (10-20); Calcium,Total 8.6 mg/dL (8.5-10.1); Chloride 112 mmol/L (98-107); Creatinine, Serum 0.98 mg/dL (0.70-1.30); EST Glomerular Filtration Rate 78 mL/min (>60); Est Glom Filt Rate - Afr Amer 95 mL/min (>60); Estimated Creatinine Clearance 71.84 ml/min; Glucose 145 mg/dL (74-106); Sodium Level 140 mmol/L (136-145)
--- NOTE | 2023-04-19 15:08 | CASEMGMT ---
Patient was approved to go to [facility]. SW will notify patient and his . Nadia Cain MSW TEAGAN
[2023-04-19] MEDS: Tamsulosin HCl 0.4 MG Capsule 0.400000000000000022 MG PO (16:49)
[2023-04-19] MEDS: Atorvastatin Calcium 80 MG Tablet 40 MG PO (19:54)
[2023-04-20] VITALS (7 sets, daily range): BP systolic 115–133; BP diastolic 68–74; PULSE 55–67; RESP 16–18; TEMP 36–36.9; O2SAT 93–97; BMI 42.5
[2023-04-20] MEDS: Ipratropium/Albuterol Sulfate 3 ML AMPUL.NEB INHALATION ×4 (01:35→19:39)
[2023-04-20] MEDS: Loperamide 2 MG Capsule PO ×2 (03:57→19:30)
[2023-04-20] MEDS: Potassium Chloride Oral Tablet 20 MEQ 40 MEQ PO (04:42)
[2023-04-20 07:10] LABS: Absolute Lymphocyte Count 0.73 X10^3/uL (0.83-4.51); Absolute Neutrophil Count 3.4 X10^3/uL (2.0-7.7); Basophil# 0.01 X10^3/uL; Basophil% 0.2 % (0-1); Eosinophil# 0.14 X10^3/uL; Eosinophils% 3.1 % (0-5); Hematocrit 29.9 % (40-54); Hemoglobin 9.2 g/dL (13.0-16.5); Lymphocyte # 0.73 X10^3/ul (0.83-4.51); Lymphocyte % 15.9 % (19-41); Mean Corp Hgb Conc 30.8 g/dL (32-36); Mean Corpuscular Hgb 27.9 pg (27.0-32.0); Mean Corpuscular Volume 90.6 fL (80-94); Mean Platelet Vol. 10.2 fl (6.2-12.0); Monocyte# 0.33 X10^3/uL; Monocyte% 7.2 % (0-10); NRBC Flagged by Analyzer 0 % (0-5); Neutrophil # 3.36 X10^3/uL (2.7-7.7); Neutrophil % 73.4 % (47-70); Platelet Count 173 K/mm3 (150-450); RBC Distribution Width CV 17.2 % (11.6-14.6); RBC Distribution Width SD 56.7 fl (35.1-43.9); White Blood Count 4.6 K/mm3 (4.4-11.0)
[2023-04-20 07:39] LABS: Anion Gap 2 (5-15); BUN 12 mg/dL (7-18); BUN/Creat Ratio 13.3 RATIO (10-20); Calcium,Total 8.5 mg/dL (8.5-10.1); Chloride 111 mmol/L (98-107); EST Glomerular Filtration Rate 86 mL/min (>60); Est Glom Filt Rate - Afr Amer 105 mL/min (>60); Glucose 95 mg/dL (74-106); Sodium Level 140 mmol/L (136-145)
[2023-04-20] MEDS: levETIRAcetam 500 MG Tablet PO ×2 (08:38→19:30)
[2023-04-20] MEDS: guaiFENesin 1,200 MG Tablet 1200 MG PO ×2 (08:38→19:30)
[2023-04-20] MEDS: Menthol/Lanolin/Calamine/Znox 113 GM Tube 1 APPLIC TOPICAL ×2 (08:38→19:30)
[2023-04-20] MEDS: APIXABAN 5 MG TABLET PO ×2 (08:38→19:30)
[2023-04-20] MEDS: Miconazole Nitrate 43 GM Bottle 1 APPLIC TOPICAL ×2 (08:39→19:30)
--- NOTE | 2023-04-20 11:10 | CASEMGMT ---
SW met with patient and his Valerie. SW introduced self and role at [facility]. AVINASH explained SW wanted to check in with them since this SW has not met them. AVINASH explained SW wants to confirm that they are in agreement with [facility]. Valerie said she does not know what they are doing yet. Valerie said she will decide when she decides. Valerie also wants to see what patient wants to do. Valerie said Aaron already e-mailed her etc. Valerie said, I will decide when I decide. Nadia Cain MSW SENIOR BUSINESS DEVELOPMENT ANALYST
--- NOTE | 2023-04-20 12:29 | PN_ITS ---
Subjective Subjective Patient seen and examined. He said he felt much better today and had no active complaints. He denied any fever, chills, cough, chest pain, palpitations, dizziness, nausea, vomiting or any other symptoms. His breathing has improved significantly. Review of systems is otherwise negative. Objective Data Objective Data Vital Signs: Vital Signs Temp Pulse Resp BP Pulse Ox O2 Del Method O2 Flow Rate 98.4 F 55 L 16 133/74 H 97 Nasal Cannula 3 04/20/23 08:36 04/20/23 08:36 04/20/23 08:36 04/20/23 04:00 04/20/23 08:36 04/20/23 08:36 04/20/23 08:36 FiO2 40 04/18/23 07:55 Oxygen Flow Rate (L/min) 3 Oxygen Delivery Method Nasal Cannula Weight: 255 lb 1.197 oz Body Mass Index (BMI) 42.5 Intake & Output: Intake and Output for Last 24 Hours 04/18/23 04/19/23 04/20/23 23:59 23:59 23:59 Intake Total 1232.75 / 1232.75 360 / 600 720 / 720 Output Total 650 / 650 1100 / 1500 1050 / 1050 Balance 582.75 / 582.75 -740 / -900 -330 / -330 Lab / Micro Data 04/20/23 05:55 04/20/23 05:55 Labs: Laboratory Results - last 24 hr 04/19/23 13:00: WBC 4.8, RBC 3.48 L, Hgb 9.7 L, Hct 32.6 L, MCV 93.7, MCH 27.9, MCHC 29.8 L, RDW Std Deviation 58.4 H, RDW Coeff of Ernst 17.2 H, Plt Count 174, MPV 10.4, Immature Gran % (Auto) 0.400, Neut % (Auto) 77.1 H, Lymph % (Auto) 12.7 L, [place] % (Auto) 6.9, Eos % (Auto) 2.5, Baso % (Auto) 0.4, Absolute Neuts (auto) 3.7, Absolute Lymphs (auto) 0.61 L, Nucleated RBC % 0, Sodium 140, Potassium 3.0 L, Chloride 112 H, Carbon Dioxide 27.0, Anion Gap 1 L, BUN 13, Creatinine 0.98, Estim Creat Clear Calc 71.84, Est GFR (MDRD) Af Amer 95, Est GFR (MDRD) Non-Af 78, BUN/Creatinine Ratio 13.2, Glucose 145 H, Calcium 8.6 04/20/23 05:55: WBC 4.6, RBC 3.30 L, Hgb 9.2 L, Hct 29.9 L, MCV 90.6, MCH 27.9, MCHC 30.8 L, RDW Std Deviation 56.7 H, RDW Coeff of Ernst 17.2 H, Plt Count 173, MPV 10.2, Immature Gran % (Auto) 0.200, Neut % (Auto) 73.4 H, Lymph % (Auto) 15.9 L, [place] % (Auto) 7.2, Eos % (Auto) 3.1, Baso % (Auto) 0.2, Absolute Neuts (auto) 3.4, Absolute Lymphs (auto) 0.73 L, Nucleated RBC % 0, Sodium 140, Potassium 3.0 L, Chloride 111 H, Carbon Dioxide 27.0, Anion Gap 2 L, BUN 12, Creatinine 0.90, Estim Creat Clear Calc 78.30, Est GFR (MDRD) Af Amer 105, Est GFR (MDRD) Non-Af 86, BUN/Creatinine Ratio 13.3, Glucose 95, Calcium 8.5 Micro: Microbiology 04/19/23 09:29 Stool Enteric Bacteriology - Final 04/19/23 09:29 Stool Clostridioides difficile (PCR) - Final 04/14/23 14:40 Sputum, Expectorated/Coughed Gram Stain - Final 04/14/23 14:40 Sputum, Expectorated/Coughed Respiratory Culture - Final Mixed normal respiratory loida. No Streptococcus pneumoniae, beta-hemolytic Streptococcus or Staphylococcus aureus isolated. 04/10/23 10:15 Blood Culture (Wb) - Right Hand Blood Culture - Final No growth in 5 days. 04/10/23 09:40 Blood Culture (Wb) - Anticubital Right Blood Culture - Final No growth in 5 days. 04/10/23 18:17 Urine, Random Legionella Antigen - Final 04/10/23 18:17 Urine, Random Streptococcus pneumoniae Antigen (M - Final 04/10/23 11:37 Mucosa - Nasopharyngeal Respiratory Panel (PCR) - Final 04/10/23 08:45 Mucosa - Nose SARS-CoV-2, Influenza & RSV (PCR) - Final Physical Exam Const alert, no apparent distress and well nourished Constitutional Narrative: obese General Appearance: cooperative and well developed HEENT normocephalic, head/scalp atraumatic and moist oral mucous membranes Eyes PERRL and EOMs intact bilaterally Neck no lymphadenopathy and supple Lymph Lymphatic: no lymphadenopathy noted and no lymphedema noted Resp Resp Narrative: On 3 L of oxygen. Diminished breath sounds bibasilarly. Few crackles. Cardio regular rate, regular rhythm, S1 normal heart sound, S2 normal heart sound and no murmurs GI normal to inspection, nondistended, normoactive bowel sounds, soft to palpation, non-tender and non-distended Extremity normal capillary refill, no clubbing, cyanosis or edema and no calf tenderness General Extremity: no tenderness to palpation of joints or extremities Skin General Skin Exam: no breakdown Neuro CN's II-XII intact bilaterally, no focal motor deficits, no sensory deficits noted and deep tendon reflexes 2+ bilaterally Motor Exam: strength 5/5 throughout and general weakness Psych thought process normal, cooperative and affect normal Appearance: appropriate Assessment & Plan Assessment/Plan (1) Pneumonia: (2) Weakness: PLAN: Plan #Hypoxia due to pneumonia * Pneumonia thought to be community-acquired versus aspiration. * On 3L of oxygen today. Speech therapy evaluated patient and he had a swallowi ng study which showed mild dysphagia. * patient now expectorating a bit better. * Pulmonology on board per Family request. * Was on IV ceftriaxone and azithromycin, and was switche to IV unasyn. Has co mpleted a course of antibiotics * breathing treatment with bronchodilators * titrate oxygen to maintain sats >90% * required BIPAP intermittently during the admission * urine for strep and legionella negative * having chest physiotherapy. * #Hypokalemia:potassium is 3. Will replace and trend. #Dehydration: resolved. #Telemetry pauses: resolved. Echo was unremarkable. #Pancytopenia: to follow up on outpatient basis #Debility and weakness due to mechanical falls * PT/OT on board. Fall precautions. #Seizure disorder: on Keppra #History of CVA with left sided residual weakness: PT/OT on board. 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 Patient is however very weak and debilitated and will need intensive physical therapy. Case management on board to help facilitate discharge. Charges/Coding Visit Charges Inpatient E&M: 62448 Subs Hosp L2
[2023-04-20] MEDS: Tamsulosin HCl 0.4 MG Capsule 0.400000000000000022 MG PO (16:51)
[2023-04-20] MEDS: Atorvastatin Calcium 80 MG Tablet 40 MG PO (19:30)
[2023-04-21 00:53] VITALS: PULSE 63; RESP 20
[2023-04-21] MEDS: Ipratropium/Albuterol Sulfate 3 ML AMPUL.NEB INHALATION ×3 (00:53→19:01)
[2023-04-21 03:00] VITALS: BP 112/70; PULSE 59; RESP 16; TEMP 36.2; O2SAT 97
[2023-04-21 05:23] LABS: Absolute Lymphocyte Count 1.03 X10^3/uL (0.83-4.51); Absolute Neutrophil Count 2.6 X10^3/uL (2.0-7.7); Basophil# 0.02 X10^3/uL; Basophil% 0.5 % (0-1); Eosinophil# 0.18 X10^3/uL; Eosinophils% 4.4 % (0-5); Hematocrit 29.3 % (40-54); Lymphocyte # 1.03 X10^3/ul (0.83-4.51); Lymphocyte % 24.9 % (19-41); Mean Corp Hgb Conc 30.7 g/dL (32-36); Mean Corpuscular Hgb 28.3 pg (27.0-32.0); Mean Corpuscular Volume 92.1 fL (80-94); Mean Platelet Vol. 9.8 fl (6.2-12.0); Monocyte# 0.33 X10^3/uL; NRBC Flagged by Analyzer 0 % (0-5); Neutrophil # 2.55 X10^3/uL (2.7-7.7); Neutrophil % 61.7 % (47-70); Platelet Count 178 K/mm3 (150-450); RBC Distribution Width CV 16.9 % (11.6-14.6); Red Blood Count 3.18 M/mm3 (4.6-6.2); White Blood Count 4.1 K/mm3 (4.4-11.0)
[2023-04-21 05:45] LABS: Anion Gap 3 (5-15); BUN 13 mg/dL (7-18); BUN/Creat Ratio 13.9 RATIO (10-20); Calcium,Total 8.3 mg/dL (8.5-10.1); Chloride 114 mmol/L (98-107); Creatinine, Serum 0.93 mg/dL (0.70-1.30); EST Glomerular Filtration Rate 83 mL/min (>60); Est Glom Filt Rate - Afr Amer 101 mL/min (>60); Estimated Creatinine Clearance 75.78 ml/min; Glucose 94 mg/dL (74-106); Sodium Level 144 mmol/L (136-145)
[2023-04-21 06:00] VITALS: BMI 42.5
[2023-04-21 07:30] VITALS: PULSE 62; RESP 20; O2SAT 96
[2023-04-21 08:06] LABS: Magnesium 2.3 mg/dL (1.6-2.6)
[2023-04-21 08:09] VITALS: BP 95/63; PULSE 63; RESP 16; TEMP 36.9; O2SAT 93
[2023-04-21] MEDS: levETIRAcetam 500 MG Tablet PO (08:11)
[2023-04-21] MEDS: APIXABAN 5 MG TABLET PO (08:11)
[2023-04-21] MEDS: Potassium Chloride Oral Tablet 20 MEQ 60 MEQ PO (08:12)
[2023-04-21] MEDS: guaiFENesin 1,200 MG Tablet 1200 MG PO (08:12)
[2023-04-21] MEDS: Menthol/Lanolin/Calamine/Znox 113 GM Tube 1 APPLIC TOPICAL (08:12)
[2023-04-21] MEDS: Miconazole Nitrate 43 GM Bottle 1 APPLIC TOPICAL (08:12)
[2023-04-21] MEDS: Potassium Chloride 10mEq/100mL 10 MEQ/100 ML IV.SOLN. 100 MEQ IV BOLUS ×3 (08:38→10:47)
--- NOTE | 2023-04-21 13:00 | CASEMGMT ---
AVINASH met with patient and his Valerie as per physician patient is ready for discharge today. SW explained patient is ready for discharge today. Valerie said they talked and she is taking patient home. Valerie said she cannot put him through going somewhere for a week or two. SW asked if she will need transportation to get patient home. At first Valerie said she will take patient home, then she said they will call [facility]. SW asked if they would like home health. Valerie said patient has had [facility] in the past so they would like to have [facility]. AVINASH let both know SW will notify SANDRA QUISPE and she will likely be in to talk with them. Nadia CANDELARIA
--- NOTE | 2023-04-21 13:45 | CASEMGMT ---
SANDRA QUISPE updated by AVINASH that patient and want to return home with [facility]. SANDRA QUISPE in to discuss concerns with patient's progress with therapy. resistant to have conversation and adamant that patient will discharge home. SANDRA QUISPE asked therapy to work with patient and family to demonstrate ability to transfer at home. Therapy worked with family and were able to transfer patient safely. SANDRA QUISPE in to discuss HHC at discharge. Patient prefers [facility] and declined list of HHC. SANDRA QUISPE sent referral to [facility], awaiting acceptance. CM will continue to follow this patient and plan for a safe discharge.
--- NOTE | 2023-04-21 14:41 | DS.PCM_ITS ---
Providers Date of Admission: 04/12/23 Date of Discharge: 04/21/23 Primary Care Physician: Dr. Eliud Belcher MD Consultations 04/11/23 07:27 Consult: [facility] [employer] Stitcher / Pulmonary Medicine Routine Consulting Provider: Vito Mccarthy Reason for Consult: Family requesting pulm c/s, ?PNA, resp sx x1 month EMERGENT Consult: No Notified: Yes Date Notified: 04/11/23 Time Notified: 07:37 Method of Notification: Text 04/13/23 13:58 Consult: Gastroenterology Routine Consulting Provider: [facility] Reason for Consult: ?aspiration but swallow normal- speech has concern for esophageal pathology EMERGENT Consult: No Notified: Yes Date Notified: 04/13/23 Time Notified: 13:58 Method of Notification: Text Reason For Visit: PNEUMONIA, CAP VS ASPIRATION Diagnosis Discharge Diagnosis (1) Pneumonia: Status: Acute Code(s): J18.9 - Pneumonia, unspecified organism (2) Weakness: Status: Acute Code(s): R53.1 - Weakness Plan #Hypoxia due to pneumonia * Pneumonia thought to be community-acquired versus aspiration. * On 3L of oxygen today. Speech therapy evaluated patient and he had a swallowing study which showed mild dysphagia. * patient now expectorating a bit better. * Pulmonology on board per Family request. * Was on IV ceftriaxone and azithromycin, and was switche to IV unasyn. Has completed a course of antibiotics * breathing treatment with bronchodilators * titrate oxygen to maintain sats >90% * required BIPAP intermittently during the admission * urine for strep and legionella negative * having chest physiotherapy. * #Hypokalemia:potassium is 3. Will replace and trend. #Dehydration: resolved. #Telemetry pauses: resolved. Echo was unremarkable. #Pancytopenia: to follow up on outpatient basis #Debility and weakness due to mechanical falls * PT/OT on board. Fall precautions. #Seizure disorder: on Keppra #History of CVA with left sided residual weakness: PT/OT on board. 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 Patient is however very weak and debilitated and will need intensive physical therapy. Case management on board to help facilitate discharge. Medications at Discharge Home Medications acetaminophen 325 mg tablet (Tylenol) 650 mg (2 x 325 mg) PO Q6H PRN PRN Pain ##0 05/19/16 aluminum-mag hydroxide-simethicone 400 mg-400 mg-40 mg/5 mL oral susp (Mag-Al Plus Extra Strength) 15 ml PO Q6H PRN PRN Indigestion ##0 05/19/16 apixaban 5 mg tablet (Eliquis) 5 mg PO BID 05/19/16 bisacodyl 10 mg rectal suppository 10 mg RECTAL .PRN X 1 PRN Constipation ##0 05/19/16 calcium carbonate 500 mg-vitamin D3 5 mcg (200 unit) tablet (Oyster Shell Calcium-Vitamin D3) 1 tab PO BIDCM 05/19/16 loperamide 2 mg capsule 2 mg PO Q6H PRN PRN DIARRHEA/LOOSE STOOLS ##0 05/19/16 loratadine 10 mg tablet (Allergy Relief (loratadine)) 10 mg PO DAILY 05/19/16 baclofen 10 mg tablet 10 mg PO TID muscle spasms 06/20/17 nortriptyline 10 mg capsule 20 mg PO QHS depression 06/20/17 tamsulosin 0.4 mg capsule 0.4 mg PO DAILY urinary retention 06/20/17 atorvastatin 80 mg tablet 40 mg PO QHS 04/10/23 levetiracetam 750 mg tablet 500 mg PO BID 04/10/23 losartan 25 mg tablet mg PO DAILY 04/10/23 potassium chloride 20 mEq tablet,extended release 40 meq (2 x 20 mEq) PO DAILY 30 days #60 tabs 04/21/23 Hospital Course Operations None Procedures None Summary of Care Provided Minutes Spent on Discharge: 55 Hospital Course: Patient is a 77 y/o male with a PMH Family had been trying to get him into bedas outlined was admitted through the ED on 04/10/2023 with a complaint of weakness after mechanical fall. after he fell and were able to. However in the morning he was too weak to get up so he was brought to the ED. There was concern for volume depletion due to dehydration. Chest x-ray showed bilateral markings suggestive of bilateral infiltrates. COVID test was negative as well as flu and RSV. Was started on IV Levaquin. Apparently patient had also been coughing at home and thus concern about aspirating as he usually coughed after eating. He was admitted and managed for pneumonia thought to be aspiration versus community-acquired. He was also managed for debility and weakness with mechanical falls. He was started on IV ceftriaxone and azithromycin. He had a protracted hospital course with worsening respiratory failure with patient requiring increasing amounts of oxygen. He required up to 8 L of oxygen. Chest physiotherapy was ordered and antibiotics were switched to IV Unasyn. He completed a course of IV antibiotics. Hospital course was also complicated by hypokalemia with aggressive replacement of potassium. Patient was transferred from [place] [id number] to [facility] on account of increasing oxygen requirements. However his oxygen requirement slightly improved after chest physiotherapy was started. He was weaned down to 2 L of oxygen and he did well. He did have telemetry pauses was subsequently resolved. 2D echo done showed EF of 55 to 60% with no regional wall motion abnormalities and normal left ventricular systolic function. Patient was scheduled as needed skilled therapy. However family was not willing to let patient go to a skilled facility and opted to take him home with home health care. Patient was discharged home on 04/21/2023. He was discharged home with home health care was also given a prescription for p.o. potassium 40 mg daily in light of hypokalemia refractory to replacement. He is to follow-up with his primary care doctor within 1 to 2 weeks. Patient was seen and examined prior to discharge. He had no active complaints and had an uneventful night. He said he felt much better. Review of symptoms otherwise negative. Labs and vitals reviewed. Home medication reviewed and reconciled. Physical Exam Const alert, oriented x3, no apparent distress and well nourished Constitutional Narrative: obese General Appearance: cooperative, comfortable, well kempt and well developed HEENT normocephalic, head/scalp atraumatic, hearing grossly normal bilaterally and moist oral mucous membranes Eyes PERRL and EOMs intact bilaterally Neck no lymphadenopathy and supple Lymph Lymphatic: no lymphadenopathy noted and no lymphedema noted Resp Resp Narrative: On 3 L of oxygen. Diminished breath sounds bibasilarly. Few crackles. Cardio regular rate, regular rhythm, S1 normal heart sound, S2 normal heart sound and no murmurs GI normal to inspection, nondistended, normoactive bowel sounds, soft to palpation, non-tender and non-distended Extremity normal capillary refill, no clubbing, cyanosis or edema and no calf tenderness General Extremity: no tenderness to palpation of joints or extremities Skin General Skin Exam: no breakdown Neuro oriented x3, CN's II-XII intact bilaterally, moves all extremities, no focal motor deficits, no sensory deficits noted and deep tendon reflexes 2+ bilaterally Sensorium / Orientation: awake Motor Exam: strength 5/5 throughout and general weakness Psych thought process normal, cooperative and affect normal Appearance: appropriate Weight / BMI Weight Weight: 255 lb 11.779 oz Body Mass Index (BMI) 42.5 ABG / Lab / Microbiology Data 04/21/23 05:10 04/21/23 05:10 Laboratory: Laboratory Results - last 24 hr 04/21/23 05:10: WBC 4.1 L, RBC 3.18 L, Hgb 9.0 L, Hct 29.3 L, MCV 92.1, MCH 28.3, MCHC 30.7 L, RDW Std Deviation 57.0 H, RDW Coeff of Ernst 16.9 H, Plt Count 178, MPV 9.8, Immature Gran % (Auto) 0.500, Neut % (Auto) 61.7, Lymph % (Auto) 24.9, [place] % (Auto) 8.0, Eos % (Auto) 4.4, Baso % (Auto) 0.5, Absolute Neuts (au to) 2.6, Absolute Lymphs (auto) 1.03, Nucleated RBC % 0, Sodium 144, Potassium 3.0 L, Chloride 114 H, Carbon Dioxide 27.0, Anion Gap 3 L, BUN 13, Creatinine 0.93, Estim Creat Clear Calc 75.78, Est GFR (MDRD) Af Amer 101, Est GFR (MDRD) Non-Af 83, BUN/Creatinine Ratio 13.9, Glucose 94, Calcium 8.3 L, Magnesium 2.3 Microbiology: Microbiology 04/19/23 09:29 Stool Enteric Bacteriology - Final 04/19/23 09:29 Stool Clostridioides difficile (PCR) - Final 04/14/23 14:40 Sputum, Expectorated/Coughed Gram Stain - Final 04/14/23 14:40 Sputum, Expectorated/Coughed Respiratory Culture - Final Mixed normal respiratory loida. No Streptococcus pneumoniae, beta-hemolytic Streptococcus or Staphylococcus aureus isolated. 04/10/23 10:15 Blood Culture (Wb) - Right Hand Blood Culture - Final No growth in 5 days. 04/10/23 09:40 Blood Culture (Wb) - Anticubital Right Blood Culture - Final No growth in 5 days. 04/10/23 18:17 Urine, Random Legionella Antigen - Final 04/10/23 18:17 Urine, Random Streptococcus pneumoniae Antigen (M - Final 04/10/23 11:37 Mucosa - Nasopharyngeal Respiratory Panel (PCR) - Final 04/10/23 08:45 Mucosa - Nose SARS-CoV-2, Influenza & RSV (PCR) - Final D/C Instructions Discharge Diet: Low fat / Low cholesterol Discharge Activity: Return to Normal Activity Weight Bearing Status: Weight bearing as tolerated Call your doctor if you observe: Fever of 101 or Higher, Shortness of breath, Dizziness, Swelling in the ankles and Chest pain Meaningful Use Info Meaningful Use Diagnoses (Choose all that apply): None applicable Discharge Plan Admission Admit Date/Time: 04/12/23 16:23 Primary Reason for Your Visit: aspiration pneumonia Attending Provider: Dari Naylor Primary Care Provider: Eliud Belcher Consulting Providers: Kiarra Valdez Instructions Patient Instructions: Dysphagia Aspiration Additional Instructions / Restrictions: DISCHARGE INSTRUCTIONS PLEASE READ *Please take this with you to your next doctors appointment* -Please follow up with pulmonology in the office upon discharge -Would recommend lab work (CBC) to check your blood counts in 2 to 3 days through your primary care physician's office. Please call their office upon discharge to obtain order for lab work. If your blood counts are still low you may need to follow-up with a hematology doctor after discharge. Referral can be made by your primary care physician pending your lab work -Please call your primary care provider's office upon discharge to schedule a hospital follow up within 1 week. -For any concerning signs or symptoms please call 911 or proceed to the nearest emergency department Discharge Orders/Prescriptions Prescriptions: New potassium chloride 20 mEq tablet extended release 40 meq PO DAILY 30 Days Qty: 60 1RF Continued acetaminophen [Tylenol] 325 MG tablet 650 mg PO Q6H PRN PRN (Reason: Pain) Qty: 0 0RF loperamide 2 MG capsule 2 mg PO Q6H PRN PRN (Reason: DIARRHEA/LOOSE STOOLS) Qty: 0 0RF bisacodyl 10 MG suppository 10 mg RECTAL .PRN X 1 PRN (Reason: Constipation) Qty: 0 0RF loratadine [Allergy Relief (loratadine)] 10 MG tablet 10 mg PO DAILY 0RF alum-mag hydroxide-simeth [Mag-Al Plus Extra Strength] 30 ML suspension 15 ml PO Q6H PRN PRN (Reason: Indigestion) Qty: 0 0RF calcium carbonate-vitamin D3 [Oyster Shell Calcium-Vit D3] 1 TABLET tablet 1 tab PO BIDCM 0RF Patient Comments: supplement Eliquis 5 MG tablet 5 mg PO BID 0RF Patient Comments: blood thinner tamsulosin 0.4 MG capsule 0.4 mg PO DAILY baclofen 10 MG tablet 10 mg PO TID nortriptyline 10 MG capsule 20 mg PO QHS losartan 25 mg tablet PO DAILY Patient Comments: take 1 tablet by mouth once daily atorvastatin 80 MG tablet 40 mg PO QHS Patient Comments: cholesterol levetiracetam 750 MG tablet 500 mg PO BID Discontinued potassium chloride [Klor-Con M20] 20 MEQ tablet 10 meq PO DAILYCM lisinopril [Prinivil] 10 MG tablet 10 mg PO DAILY Referrals / Follow Up: Vito Mccarthy DO [Med Staff - Active Staff] - Eliud Belcher MD [Primary Care Provider] - Within 1 Week Disposition Disposition (needs filled in before D/C Order can be placed): Home, Self Care Charges/Coding Visit Charges Inpatient E&M: 03196 Disch Hosp >30min
--- NOTE | 2023-04-21 15:15 | CASEMGMT ---
RN CM received call back from [facility] and they are able to accept patient with start of care for Monday 04/24. RN CM in to update patient and . Patient and had no further questions. requesting transport be setup, rn community health updated.
[2023-04-21] MEDS: Tamsulosin HCl 0.4 MG Capsule 0.400000000000000022 MG PO (16:42)
[2023-04-21 19:00] VITALS: PULSE 52; RESP 20; O2SAT 90
== END 2023-04-21 19:20 | disposition home health service (06) | DRG 177 ==
LOC: ED 09:58 → MS3 10:25 → PCU 04-20 11:00
PROVIDERS: Internal Medicine; Internal Medicine Critical Care Medicine; Admitting Provider Internal Medicine; Emergency Provider Emergency Medicine; PCP Family Medicine; Visit Provider Student in an Organized Health Care Education/Training Program
DX: J69.0 Pneumonitis due to inhalation of food and vomit (principal); J96.01 Acute respiratory failure with hypoxia; D61.818 Other pancytopenia; Z68.41 Body mass index [BMI] 40.0-44.9, adult; I69.354 Hemiplegia and hemiparesis following cerebral infarction affecting left non-dominant side; N13.8 Other obstructive and reflux uropathy; G40.909 Epilepsy, unspecified, not intractable, without status epilepticus; E66.01 Morbid (severe) obesity due to excess calories; I10 Essential (primary) hypertension; E87.6 Hypokalemia; G47.33 Obstructive sleep apnea (adult) (pediatric); Z87.891 Personal history of nicotine dependence; Z79.01 Long term (current) use of anticoagulants; R79.89 Other specified abnormal findings of blood chemistry; R53.1 Weakness; N40.1 Benign prostatic hyperplasia with lower urinary tract symptoms; R53.81 Other malaise; R29.6 Repeated falls; R13.10 Dysphagia, unspecified
CPT/HCPCS: 36415; 36600; 70450; 71045; 72125; 74230; 76770; 80048; 82436; 82570; 82803; 83735; 83880; 83935; 84100; 84133; 84300; 84540; 85025; 87040; 87070; 87205; 87449; 87493; 87506; 87631; 87633; 87641; 92526; 92610; 92611; 93005; 93306; 94002; 94003; 94640; 94667; 94668; 94762; 97110; 97163; 97166; 97530; 97535; 99285; J7030; J7050; Q9957; A4216; C8929; J0295; J1940